=== PATIENT | female | born 1955 | race Caucasian/White ===

== ENCOUNTER 2021-02-16 12:31 | Outpatient (REF) | payer MEDICARE, MEDICAID, SELFPAY ==
--- NOTE | 2021-02-16 12:54 | EEG_ITS ---
The waking background activity consists of a moderate voltage 8 to 9 hertz posterior alpha frequency that is seen symmetrically and attenuates well with eye opening while low-voltage fast frequencies predominant anteriorly. Drowsiness is characterized by diffuse theta slowing and attenuation of the posterior alpha. During sleep, symmetrical frontal central sleep spindles and vertex sharp transients developed over both hemispheres. Stages 3 and 4 of sleep are noted with bifrontal delta. Arousals are multiple and without abnormalities. The patient remains asymptomatic. No focal, lateralizing, or paroxysmal discharges seen. IMPRESSION: This 24-hour ambulatory EEG is within normal limits. MD SHAMEKA Bowers/FADY / [id number]
== END 2021-02-16 12:32 | disposition home or self-care (01) ==
LOC: HO.NEURO 12:31
PROVIDERS: PCP Internal Medicine; Visit Provider Psychiatry & Neurology Neurology
DX: F44.5 Conversion disorder with seizures or convulsions (principal)
CPT/HCPCS: 95708

== ENCOUNTER 2021-09-28 10:18 | Outpatient (REF) | payer MEDICARE, MEDICAID, SELFPAY ==
--- NOTE | 2021-09-28 10:22 | EEG_ITS ---
The waking background activity consists of a diffuse 7 to 7.5 hertz, moderate to high voltage theta intermixed with low voltage fast frequencies anteriorly. Drowsiness is characterized with diffuse theta slowing at slower frequency and during sleep symmetrical frontal central sleep spindles develop over both hemispheres. The patient is frequently drowsy and asleep. Towards the 2nd half of their tracing, 3 leads have come off, which limits interpretation. IMPRESSION: This is an abnormal 24-hour ambulatory EEG due to diffuse theta slowing in the 7 to 7.5 hertz range consistent with diffuse encephalopathic process. No clearly epileptiform discharges are seen. MD SHAMEKA Bowers/FADY / [id number]
== END 2021-09-28 10:19 | disposition home or self-care (01) ==
LOC: HO.NEURO 10:18
PROVIDERS: Visit Provider Psychiatry & Neurology Neurology
DX: G47.419 Narcolepsy without cataplexy (principal)
CPT/HCPCS: 95708; 95957

== ENCOUNTER 2022-10-25 12:39 | Emergency (ER) | payer MEDICARE, MEDICAID, SELFPAY ==
--- NOTE | ~2022-10-25 | CT_ITS ---
EXAMINATION: CT HEAD WITHOUT CONTRAST CLINICAL INFORMATION: Left arm and bilateral leg weakness. COMPARISON: None available. TECHNIQUE: Contiguous axial imaging was performed from the skull base to vertex without intravenous administration of contrast. Coronal and sagittal reformatted images were obtained. This CT examination was performed using dose optimization techniques as appropriate, variously including the following: *Automated exposure control *Adjustment of mA and/or kV according to patient size (this includes techniques or standardized protocols for targeted exams where dose is matched to indication/reason for exam; i.e. extremities or head) *Use of iterative reconstruction technique DLP: 818 mGy-cm FINDINGS: There is mild widening of the cortical sulci with frontal lobe predominance. The lateral ventricles are symmetrical. The third and fourth ventricles are in their normal midline position. The basilar and prepontine cisterns are unremarkable. There is no acute intra or extracerebral abnormality. There is no mass effect or midline shift. Sections through the bony calvarium are unremarkable. The orbits are intact. The paranasal sinuses are clear. The mastoid air cells are clear. CT/CT head/brain wo IV con IMPRESSION: No acute intracranial pathology.
--- NOTE | ~2022-10-25 | CT_ITS ---
EXAMINATION: CT LUMBAR SPINE WITHOUT CONTRAST CLINICAL INFORMATION: Bilateral leg weakness, low back pain. COMPARISON: None available. TECHNIQUE: Multiple axial images of the lumbar spine were obtained without the administration of intravenous contrast. Coronal and sagittal reformatted images were obtained. This CT examination was performed using dose optimization techniques as appropriate, variously including the following: *Automated exposure control *Adjustment of mA and/or kV according to patient size (this includes techniques or standardized protocols for targeted exams where dose is matched to indication/reason for exam; i.e. extremities or head) *Use of iterative reconstruction technique DLP; 224.16 mGy-cm FINDINGS: There is normal lumbar lordosis and spinal alignment. Mild lumbar dextroscoliosis is seen. There is generalized osteopenia. Rudimentary ribs are seen at T12. Moderate to severe multilevel degenerative disc disease is seen from L2-3 and L5-S1. There is no acute fracture. Mild to moderate bilateral neural foraminal narrowing is seen at L4-5 and L5-S1. Mild to moderate multilevel bilateral facet arthropathy is seen most pronounced at L4-5 and L5-S1 as well. The spinous processes are intact with mild to moderate multilevel articulating degenerative changes. Mild bilateral sacroiliac degenerative joint changes are seen. A nonobstructing right intrarenal calculus measuring 0.4 cm is seen (image 20, series 17). No hydroureteronephrosis. The paravertebral soft tissues are unremarkable. CT/CT lumbar spine wo IV con IMPRESSION: 1. Multilevel degenerative changes without acute abnormality. 2. Nonobstructing right intrarenal calculus.
--- NOTE | 2022-10-25 12:59 | ED_ITS ---
HPI - General Adult General Chief complaint: General Medical <NOÉ Carl - Last Filed: 10/25/22 13:07> Stated complaint: Weakness Body Pain <NOÉ Carl - Last Filed: 10/25/22 13:07> Time Seen by Provider: 10/25/22 13:15 <NOÉ Carl - Last Filed: 10/25/22 13:07> Source: patient <Harvey Burt MD - Last Filed: 10/25/22 17:11> Mode of arrival: ambulatory <Harvey Burt MD - Last Filed: 10/25/22 17:11> Limitations: no limitations <Harvey Burt MD - Last Filed: 10/25/22 17:11> History of Present Illness HPI narrative: 67-year-old female who presents emergency department for evaluation bilateral lower leg weakness, lower back pain, and left upper extremity weakness. The patient states she has spinal stenosis is being managed by [facility]. She states that she gets steroid injections in her last injection was true to 3 months ago. She states that she has been having pain in her lower back for approximately 3-4 days. She describes the pain is a constant, sharp pain which is 8/10 at its worst. She states that she is also experiencing weakness in her lower extremities and she feels like her legs are giving out on her. She states she has had these similar pains and weakness in the past secondary to her spinal stenosis. She states that in the past she has been treated with morphine and with steroids. She states she is also having weakness in her left upper extremity which she states has been there for 3 or 4 days as well. She believes that this is secondary to her spinal stenosis. The patient does have dysarthric speech but it is comprehensible. She states that this is secondary to multiple strokes. She denied headache, numbness, loss of bowel or bladder control, fever, chills. She has had rhinorrhea over the past several days. She denies sore throat. She has had an occasional cough. She denied chest pain, shortness of breath or dyspnea on exertion. She states that she has nausea associated with the pain. She denied vomiting or diarrhea. She denied frequency, urgency or dysuria. She states that 2 months prior she was admitted to [facility] for a bowel obstruction which did not require surgery. She states she has had no difficulty moving her bowels. <Harvey Burt MD - Last Filed: 10/25/22 17:11> Related Data Home medications: Previous Rx's Medication Instructions Recorded methylphenidate HCl 20 mg tablet 20 mg PO TID 30 days #90 tabs 10/25/22 (Ritalin) morphine 15 mg immediate release 15 mg PO Q6H PRN pain #10 tabs 10/25/22 tablet prednisone 20 mg tablet 20 mg PO DAILY 5 days #5 tabs 10/25/22 <NOÉ Carl - Last Filed: 10/25/22 13:07> Allergies/adverse reactions: Allergies Allergy/AdvReac Type Severity Reaction Status Date / Time latex [Latex] Allergy Intermediate SWELLING Verified 10/25/22 13:00 ampicillin [Ampicillin] Allergy Mild ITCHING Verified 10/25/22 13:00 potassium chloride Allergy Mild ITCHING Verified 10/25/22 13:00 [Potassium Chloride] <NOÉ Carl - Last Filed: 10/25/22 13:07> Review of Systems Review of Systems: Yes all other systems are reviewed and are negative <Harvey Burt MD - Last Filed: 10/25/22 17:11> [facility] Past Medical History [facility] Narrative: Past medical history: Diabetes mellitus, narcolepsy, epilepsy, multiple strokes, small-bowel obstruction. Past surgical history: None social history: She denies tobacco, alcohol and drug use. <Harvey Burt MD - Last Filed: 10/25/22 17:11> Social History Social History: Social History Alcohol intake: never Smoked in Last 30 Days: No Use of substances other than those prescribed or required for medical reasons: No Advance Directives: No Advance Directives Information Provided: Yes <NOÉ Carl - Last Filed: 10/25/22 13:07> Physical Exam ED Vital Signs: Vital Signs - 24 hr 10/25/22 13:01 10/25/22 15:08 Temperature 98.5 F Pulse Rate 66 60 Respiratory Rate 18 14 Blood Pressure 88/53 L 101/58 L Pulse Oximetry 100 98 Oxygen Delivery Method Room Air Room Air BMI result Body Mass Index 20.1 <NOÉ Carl - Last Filed: 10/25/22 13:07> Vital Signs - 24 hr 10/25/22 13:01 10/25/22 15:08 Temperature 98.5 F Pulse Rate 66 60 Respiratory Rate 18 14 Blood Pressure 88/53 L 101/58 L Pulse Oximetry 100 98 Oxygen Delivery Method Room Air Room Air BMI result Body Mass Index 20.1 Low blood pressure 88/53-the patient states that this is her baseline blood pre ssure <Harevy Burt MD - Last Filed: 10/25/22 17:11> Const Other: Awake, alert, female patient, she has dysarthric speech which is comprehensible, she answers all questions appropriately, she is oriented to person place, she does not appear to be in distress <Harvey Burt MD - Last Filed: 10/25/22 17:11> HENMT Head: Yes normal to inspection, Yes normocephalic and Yes atraumatic <Harvey Burt MD - Last Filed: 10/25/22 17:11> Ears: external ears normal <Harvey Burt MD - Last Filed: 10/25/22 17:11> General nose exam: Normal external nose present <Harvey Burt MD - Last Filed: 10/25/22 17:11> Face and sinus: Yes normal facial exam <Harvey Burt MD - Last Filed: 10/25/22 17:11> Mouth: Normal oral and palatal mucosa present <Harvey Burt MD - Last Filed: 10/25/22 17:11> Throat: Yes posterior oropharynx normal <Harvey Burt MD - Last Filed: 10/25/22 17:11> Eyes General: appearance normal, both eyes and all related structures <Harvey Burt MD - Last Filed: 10/25/22 17:11> Neck Neck: Yes normal visual inspection, Yes no lymphadenopathy, Yes trachea midline and Yes supple <Harvey Burt MD - Last Filed: 10/25/22 17:11> Chest Chest palpation & inspection: normal inspection of the chest and normal palpation of entire chest wall <Harvey Burt MD - Last Filed: 10/25/22 17:11> Resp Effort & Inspection: normal respiratory effort and able to speak in complete sentences <Harvey Burt MD - Last Filed: 10/25/22 17:11> Auscultation: clear to auscultation bilaterally <Harvey Burt MD - Last Filed: 10/25/22 17:11> Cardio Rate: regular rate <Harvey Burt MD - Last Filed: 10/25/22 17:11> Rhythm: regular rhythm <Harvey Burt MD - Last Filed: 10/25/22 17:11> Heart sounds: S1 normal heart sound present, S2 normal heart sound present and no murmurs <Harvey Burt MD - Last Filed: 10/25/22 17:11> GI Inspection: Yes normal to inspection <Harvey Burt MD - Last Filed: 10/25/22 17:11> Palpation (GI): Soft to palpation, nontender and no guarding <Harvey Burt MD - Last Filed: 10/25/22 17:11> Auscultation: normal bowel sounds <MD Jarocho Chawla Last Filed: 10/25/22 17:11> Back/Spine/Pelvis Other: Patient has no tenderness palpation over her cervical, thoracic, lumbar sacral spine. She has no paraspinal muscle tenderness. She has negative straight leg raises bilaterally. <Harvey Burt MD - Last Filed: 10/25/22 17:11> Skin General skin exam: no rashes or lesions noted <Harvey Burt MD - Last Filed: 10/25/22 17:11> Neuro Other: Awake, alert, oriented to person place. Cranial nerves 2-12 are intact except for dysarthric speech which is comprehensible. Strength in her upper and lower extremities are good and symmetric. <Harvey Burt MD - Last Filed: 10/25/22 17:11> Extrem General: Yes normal to inspection <Harvey Burt MD - Last Filed: 10/25/22 17:11> Psych Appearance: grossly normal <Harvey Burt MD - Last Filed: 10/25/22 17:11> Speech and movement: Normal speech and movement present <Harvey Burt MD - Last Filed: 10/25/22 17:11> Affect: normal affect <Harvey Burt MD - Last Filed: 10/25/22 17:11> Attitude: cooperative <Harvey Burt MD - Last Filed: 10/25/22 17:11> Course Course Course Narrative: RME - 67 y/o female with history of CVA, narcolepsy, seizures, spinal stenosis who presents to the ER for evaluation of bilateral lower leg weakness that just started today. She report a hard time walking today. She would like cortisone injections in her spine. She thinks she is supposed to have surgery. In triage she has slurred speech and reports it is her baseline, she has had several strokes. Toward the end of triage she also reports new left arm weakness which has been present for the last 3-4 days. BP is 88/53 and she reports she has baseline low BP. She has an unsteady gait. Plan: CT head and lumbar spine, labs, EKG. to go back to treatment room [facility] <NOÉ Carl - Last Filed: 10/25/22 13:07> RME - 67 y/o female with history of CVA, narcolepsy, seizures, spinal stenosis who presents to the ER for evaluation of bilateral lower leg weakness that just started today. She report a hard time walking today. She would like cortisone injections in her spine. She thinks she is supposed to have surgery. In triage she has slurred speech and reports it is her baseline, she has had several strokes. Toward the end of triage she also reports new left arm weakness which has been present for the last 3-4 days. BP is 88/53 and she reports she has baseline low BP. She has an unsteady gait. Plan: CT head and lumbar spine, labs, EKG. to go back to treatment room [facility] 1344: RME review by me. <Harvey Burt MD - Last Filed: 10/25/22 17:11> Medications Administered Discontinued Medications Generic Name Dose Route Start Last Admin Trade Name Freq PRN Reason Stop Dose Admin Methylphenidate HCl 20 mg 10/25/22 13:32 10/25/22 14:19 Methylphenidate Hcl 10 Mg Tablet PO 10/25/22 13:33 20 mg ONCE ONE Administration Methylprednisolone Sodium Succinate 60 mg 10/25/22 13:32 10/25/22 14:19 Methylprednisolone Sod Succ 125 Mg/2 Ml Vial IVPUSH 10/25/22 13:33 60 mg ONCE ONE Administration Morphine Sulfate 2 mg 10/25/22 13:32 10/25/22 14:19 Morphine Sulfate 4 Mg/Ml Cartridge IVPUSH 10/25/22 13:33 2 mg ONCE STA Administration Protocol Morphine Sulfate 4 mg 10/25/22 15:49 10/25/22 16:01 Morphine Sulfate 4 Mg/Ml Cartridge IVPUSH 10/25/22 15:50 4 mg ONCE STA Administration Protocol <NOÉ Carl - Last Filed: 10/25/22 13:07> Medications Administered Discontinued Medications Generic Name Dose Route Start Last Admin Trade Name Nicole PRN Reason Stop Dose Admin Methylphenidate HCl 20 mg 10/25/22 13:32 10/25/22 14:19 Methylphenidate Hcl 10 Mg Tablet PO 10/25/22 13:33 20 mg ONCE ONE Administration Methylprednisolone Sodium Succinate 60 mg 10/25/22 13:32 10/25/22 14:19 Methylprednisolone Sod Succ 125 Mg/2 Ml Vial IVPUSH 10/25/22 13:33 60 mg ONCE ONE Administration Morphine Sulfate 2 mg 10/25/22 13:32 10/25/22 14:19 Morphine Sulfate 4 Mg/Ml Cartridge IVPUSH 10/25/22 13:33 2 mg ONCE STA Administration Protocol Morphine Sulfate 4 mg 10/25/22 15:49 10/25/22 16:01 Morphine Sulfate 4 Mg/Ml Cartridge IVPUSH 10/25/22 15:50 4 mg ONCE STA Administration Protocol <Harvey Burt MD - Last Filed: 10/25/22 17:11> Medical Decision Making Medical Decision Making MDM Narrative: 67 y/o female with history of CVA, narcolepsy, seizures, spinal stenosis who presents to the ER for evaluation of bilateral lower leg weakness, back pain and left upper extremity weakness times 3-4 days. Patient has had similar pr esentations in the past secondary to spinal stenosis. She has had multiple strokes in the past and has dysarthric speech. Physical examination revealed symmetric upper and lower extremity strength with normal reflexes. Provider triage ordered a CBC, BMP, liver panel, magnesium, ethanol level, urine tox screen. CT scan of the brain and lumbar spine was also ordered at triage. 1346: Impression is that the patient's symptoms are consistent with her spinal stenosis. Her pain was treated with morphine 2 mg IV and she was also given Solu-Medrol 60 mg IV for possible inflammation secondary to her spinal stenosis. Patient requested her Ritalin 20 mg orally for her narcolepsy and this was ord ered by me. 1658: CT scan of the patient's head revealed no acute findings to explain her weakness. CT scan of the lumbar sacral spine revealed multilevel degenerative changes but no acute finding. Patient did require a 2nd dose of morphine 4 mg IV and states that she needed 2nd dose of Ritalin for her narcolepsy therefore I ordered Ritalin 20 mg orally. The patient is feeling better. The patient will be discharged home I did prescribe prednisone 20 mg daily for 5 days to treat her for inflammation causing her symptoms. Patient was also prescribed morphine 15 mg every 6 hours as needed for pain. She requested that I refill her renal and 20 mg 3 times a day for her narcolepsy which she states she is on these medications and needs emergently and her doctor is not available. Therefore I did refill this medication for her pain <Harvey Burt MD - Last Filed: 10/25/22 17:11> Differential Diagnosis Differential diagnosis includes was not limited to spinal stenosis, degenerative joint disease, stroke, anemia electrolyte abnormality, <Harvey Burt MD - Last Filed: 10/25/22 17:11> Admission/Observation Consideration of admission/observation: Escalation of care including admission/observation considered <Harvey Burt MD - Last Filed: 10/25/22 17:11> Lab Data [facility] Lab Attestation statement: I reviewed the patient's lab results. <Harvey Burt MD - Last Filed: 10/25/22 17:11> Please see [facility] <Harvey Burt MD - Last Filed: 10/25/22 17:11> Result Diagrams: 10/25/22 14:53 10/25/22 14:53 <NOÉ Carl - Last Filed: 10/25/22 13:07> Labs: Lab Results 10/25/22 10/25/22 10/25/22 Range/Units 14:53 14:53 14:53 WBC 5.8 (4.8-10.8) X10*3/uL RBC 4.23 (4.20-5.50) X10*6/uL Hgb 14.1 (12.0-16.0) g/dl Hct 41.7 (37.0-47.0) % MCV 98.6 H (80.0-98.0) fL MCH 33.3 H (27.0-33.0) pg MCHC 33.8 (31.0-35.0) g/dl RDW 11.8 (11.0-16.0) % Plt Count 245 (160-400) X10*3/uL MPV 8.7 L (9.4-12.3) fL Immature Gran % (Auto) 0.3 (0.0-0.4) % Neut % (Auto) 76.1 H (45-73) % Lymph % (Auto) 19.8 L (20-40) % Maury % (Auto) 3.3 (2-11) % Eos % (Auto) 0.2 (0-4) % Baso % (Auto) 0.3 (0-2) % Lymph # (Auto) 1.1 L (1.2-4.9) X10*3/uL Maury # (Auto) 0.2 (0.1-1.2) X10*3/uL Eos # (Auto) 0.0 (0.0-0.4) X10*3/uL Baso # (Auto) 0.0 (0.0-0.2) X10*3/uL Abs Immat Gran (auto) 0.02 (0.00-0.03) X10*3/uL Absolute Neuts (auto) 4.4 (2.0-8.3) x10*3/uL Absolute Nucleated RBC 0.000 (0.0-0.012) X10*3/uL Nucleated RBC % (auto) 0.0 (0.0-0.2) /100WBC PT 10.5 (10.0-13.1) SEC INR 0.9 (0.9-1.1) APTT 39.7 H (26.0-36.4) SEC Sodium 141 (135-145) mmol/L Potassium 3.5 (3.3-5.1) mmol/L Chloride 107 (96-108) mmol/L Carbon Dioxide 28 (22-29) mmol/L Anion Gap 10 L (12-20) BUN 14 (9-16) mg/dL Creatinine 0.93 (0.5-1.4) mg/dL Estim Creat Clear Calc 47.4 Estimated GFR > 60 Random Glucose 78 (60-115) mg/dL Calcium 8.8 (8.4-10.2) mg/dL Magnesium 2.4 (1.6-2.6) mg/dL Total Bilirubin 0.3 (0.0-1.0) mg/dL Direct Bilirubin 0.1 (0.0-0.5) mg/dL AST 18 (5-31) U/L ALT 18 (0-31) U/L Alkaline Phosphatase 171 H (39-117) U/L Total Protein 6.8 (6.5-8.0) g/dL Albumin 4.4 (3.5-5.0) g/dL Ethyl Alcohol < 10 mg/dL <NOÉ Carl - Last Filed: 10/25/22 13:07> Lab Results 10/25/22 10/25/22 10/25/22 Range/Units 14:53 14:53 14:53 WBC 5.8 (4.8-10.8) X10*3/uL RBC 4.23 (4.20-5.50) X10*6/uL Hgb 14.1 (12.0-16.0) g/dl Hct 41.7 (37.0-47.0) % MCV 98.6 H (80.0-98.0) fL MCH 33.3 H (27.0-33.0) pg MCHC 33.8 (31.0-35.0) g/dl RDW 11.8 (11.0-16.0) % Plt Count 245 (160-400) X10*3/uL MPV 8.7 L (9.4-12.3) fL Immature Gran % (Auto) 0.3 (0.0-0.4) % Neut % (Auto) 76.1 H (45-73) % Lymph % (Auto) 19.8 L (20-40) % Maury % (Auto) 3.3 (2-11) % Eos % (Auto) 0.2 (0-4) % Baso % (Auto) 0.3 (0-2) % Lymph # (Auto) 1.1 L (1.2-4.9) X10*3/uL Maury # (Auto) 0.2 (0.1-1.2) X10*3/uL Eos # (Auto) 0.0 (0.0-0.4) X10*3/uL Baso # (Auto) 0.0 (0.0-0.2) X10*3/uL Abs Immat Gran (auto) 0.02 (0.00-0.03) X10*3/uL Absolute Neuts (auto) 4.4 (2.0-8.3) x10*3/uL Absolute Nucleated RBC 0.000 (0.0-0.012) X10*3/uL Nucleated RBC % (auto) 0.0 (0.0-0.2) /100WBC PT 10.5 (10.0-13.1) SEC INR 0.9 (0.9-1.1) APTT 39.7 H (26.0-36.4) SEC Sodium 141 (135-145) mmol/L Potassium 3.5 (3.3-5.1) mmol/L Chloride 107 (96-108) mmol/L Carbon Dioxide 28 (22-29) mmol/L Anion Gap 10 L (12-20) BUN 14 (9-16) mg/dL Creatinine 0.93 (0.5-1.4) mg/dL Estim Creat Clear Calc 47.4 Estimated GFR > 60 Random Glucose 78 (60-115) mg/dL Calcium 8.8 (8.4-10.2) mg/dL Magnesium 2.4 (1.6-2.6) mg/dL Total Bilirubin 0.3 (0.0-1.0) mg/dL Direct Bilirubin 0.1 (0.0-0.5) mg/dL AST 18 (5-31) U/L ALT 18 (0-31) U/L Alkaline Phosphatase 171 H (39-117) U/L Total Protein 6.8 (6.5-8.0) g/dL Albumin 4.4 (3.5-5.0) g/dL Ethyl Alcohol < 10 mg/dL <Harvey Burt MD - Last Filed: 10/25/22 17:11> Radiology Impression Discussion of test interpretation with radiology: I have reviewed the radiologist's reading. <Harvey Burt MD - Last Filed: 10/25/22 17:11> Radiologist Impression: CT head/brain wo IV con IMPRESSION: No acute intracranial pathology. Dictated By:Damian Langley MDSigned By:<Electronically signed by Damian Langley MD CT lumbar spine wo IV con IMPRESSION: 1. Multilevel degenerative changes without acute abnormality. 2. Nonobstructing right intrarenal calculus. Dictated By:Damian Langley MD <Harvey Burt MD - Last Filed: 10/25/22 17:11> Discharge Plan Discharge Clinical Impression: Degenerative disc disease, lumbar, Degenerative arthritis of lumbar spine, Weakness <NOÉ Carl - Last Filed: 10/25/22 13:07> Patient Disposition: Home, Self-Care <NOÉ Carl - Last Filed: 10/25/22 13:07> Instructions: Acute Low Back Pain (ED), Degenerative Disc Disease (ED) <NOÉ Carl - Last Filed: 10/25/22 13:07> Additional Instructions: Your blood work was unremarkable. The CT scan of your brain revealed no acute findings to explain your weakness. The CT scan of your lumbar sacral spine revealed degenerative disc disease and degenerative joint disease which is consistent with arthritis secondary to getting older. Take prednisone 20 mg pills, 3 pills once a day for 5 days. While you are taking prednisone, do not take any NSAIDs (Motrin, Advil, ibuprofen, Aleve, naproxen). Take Tylenol (acetaminophen) 2 pills every 4-6 hours as needed for pain. For pain not relieved by prednisone or Tylenol take morphine 15 mg pills, 1 pill every 6 hours as needed for pain. This medication will make you sleepy, do not drive or work while taking this medication. Morphine is a narcotic medication and can be addicting. If you are concerned about addiction you can ask the pharmacist for less pills or do not get this prescription filled. Follow-up with your provider at [facility] for re-evaluation within 1 week. Please return to the emergency department if your symptoms get worse or if you develop any symptoms that are concerning to you. I am refilling your Ritalin prescription, will not be able to refill this prescription again in the emergency department you will need to see your PCP for refills. <NOÉ Carl - Last Filed: 10/25/22 13:07> Prescriptions: New prednisone 20 mg tablet 20 mg PO DAILY 5 Days Qty: 5 0RF morphine 15 mg tablet 15 mg PO Q6H PRN (Reason: pain) Qty: 10 0RF Rx Instructions: The patient may ask for partial fill; Partial Fill upon patient request. methylphenidate HCl [Ritalin] 20 mg tablet 20 mg PO TID 30 Days Qty: 90 0RF Rx Instructions: Partial Fill upon patient request. <NOÉ Carl - Last Filed: 10/25/22 13:07>
[2022-10-25 13:01] VITALS: BP 88/53; PULSE 66; RESP 18; TEMP 36.9; O2SAT 100; BMI 20.1
--- NOTE | 2022-10-25 13:06 | ECG_ITS ---
Test Reason : weakness Blood Pressure : / mmHG Vent. Rate : 056 BPM Atrial Rate : 056 BPM P-R Int : 150 ms QRS Dur : 110 ms QT Int : 474 ms P-R-T Axes : 033 056 060 degrees QTc Int : 457 ms Sinus bradycardia Minimal voltage criteria for LVH, may be normal variant ( Jun product ) Nonspecific T wave abnormality Abnormal ECG When compared with ECG of 28-NOV-2008 11:27, No significant change was found Referred By: Marli Serrano Electronically Signed By:JOEL APODACA MD
--- OUTSIDE RECORDS SUMMARY | 2022-10-25 14:04 | XMS_ITS | Continuity of Care Document ---
Author Name Unknown Organization [facility] Address [address] [place] [address] [address], [address] [place] [address]- Care Team Providers Care Operations/Dispatch Name Role Phone Diandra BULLOCK, Clari Feng Primary Care Physician Encounter [facility] [place](s): 07/25/22 - 08/24/22 [facility] [address] [place] [address] Drive, [address] [place], [place] [address] Attending Physician: Admwild, Jayro Admitting Physician: Admtr, [id number] Referring Physician: Admtr, [id number] Allergies, Adverse Reactions, Alerts Substance Reaction Severity Status ampicillin hives Active penicillin hives Active Latex hives Active Immunizations Given and Recorded Vaccine Date Status Refusal Reason influenza virus vaccine, inactivated 02/15/17 [place] rded influenza virus vaccine, inactivated 03/13/14 [place] rded influenza virus vaccine, inactivated 04/30/10 [place] rded pneumococcal 23-valent vaccine 08/30/14 Given Medications Adderall XR 30 mg oral capsule, extended release 1 capsule = 30 mg, By Mouth, Daily, # 30 capsule, 0 Refills, Maintenance, 10/05/20 16:44:00 EDT, CRCapsule, [facility]/pharmacy #[id number], FILL 07/07/20, 1 capsule By Mouth Daily,x30 days, 165, cm, 10/05/2113:20:00 EDT, Height, 80.3, kg, 04/23/20 20:50:00 E... Start Date: 10/05/20 Stop Date: 11/04/20 Status: Ordered Aimovig SureClick Autoinjector-aooe 140 mg/mL subcutaneous solution = 140 mg, Subcutaneous Infusion, Every 28 days, # 1 each, 3 Refills, Maintenance, 10/05/20 16:44:00EDT, [facility]/pharmacy #1234, Partial fill upon patient request if the prescription is for a schedule IIopioid drug., 165, cm, 10/05/20 14:20:00 EDT, Heigh... Start Date: 10/05/20 Status: Ordered celecoxib 200 mg oral capsule TAKE 1 CAPSULE TWICE A DAY WITH MEALS Start Date: 04/23/20 Status: Ordered furosemide 40 mg oral tablet TAKE 1 TABLET BY MOUTH TWICE A DAY Start Date: 04/23/20 Status: Ordered gabapentin 400 mg oral capsule 400 mg, 1, capsule, By Mouth, 3 times a day, # 90 capsule, Refills 0, Tot. Refills 0, Maintenance, 11/02/21 8:05:00 EDT, Route to Pharmacy Electronically, [facility]/pharmacy #[id number], Partial fill upon patient request if the prescription is for a schedule II o... Start Date: 11/02/21 Status: Ordered imipramine 25 mg oral tablet 1 tablet = 25 mg, By Mouth, 4 times a day, # 270 tablet, 0 Refills, Maintenance, 06/03/22 15:58:00 EST, Tablet, Partial fill upon patient request if the prescription is for a schedule II opioid drug. Start Date: 06/03/22 Status: Ordered Keppra 500 mg oral tablet 3 tab, By Mouth, 3 times a day, # 120 tablet, 0 Refills, Maintenance, 11/26/20 22:32:00 EDT, Tablet, Partial fill upon patient request if the prescription is for a schedule II opioid drug. Start Date: 11/26/20 Status: Ordered methylphenidate 20 mg oral tablet 1 tablet = 20 mg, By Mouth, 3 times a day, # 90 tablet, 0 Refills, Maintenance, 03/13/22 17:45:00 EDT, Tablet, [facility]/pharmacy #1234, Partial fill upon patient request if the prescription is for a schedule II opioid drug., 160, cm, 03/13/22 17:03:00 EDT,... Start Date: 03/13/22 Status: Ordered OXcarbazepine 600 mg oral tablet TAKE 1 TABLET BY MOUTH TWICE A DAY Start Date: 04/23/20 Status: Ordered Potassium Chloride (Eqv-K-Tab) 20 mEq oral tablet, extended release 1 tablet = 20 mEq, By Mouth, Daily, # 7 tablet, 0 Refills, Maintenance, 06/04/22 12:14:00 EST, [facility]/pharmacy #1234, Partial fill upon patient request if the prescription is for a schedule II opioid drug., 160, cm, 06/04/22 12:01:00 EST, Height, 65, kg,... Start Date: 06/04/22 Stop Date: 06/11/22 Status: Ordered predniSONE 5 mg oral tablet 1 tablet = 5 mg, By Mouth, Daily, 0 Refills, Maintenance, 12/03/21 14:29:00 EDT, Partial fill upon patient request if the prescription is for a schedule II opioid drug. Start Date: 12/03/21 Status: Ordered ProAir HFA 90 mcg/inh inhalation aerosol with adapter See Instructions, NEEDED, Refills 0, Maintenance, 03/21/19 10:17:01 EDT, Instructions Replace Required Details Start Date: 03/21/19 Status: Ordered PROzac 40 mg oral capsule 1 capsule = 40 mg, By Mouth, Daily in AM, 0 Refills, Maintenance, 03/21/19 10:15:40 EDT Start Date: 03/21/19 Status: Ordered Ritalin 20 mg oral tablet 1 tablet = 20 mg, By Mouth, 2 times a day, 0 Refills, Maintenance, 06/22/22 10:59:00 EST, Partial fill upon patient request if the prescription is for a schedule II opioid drug. Start Date: 06/22/22 Status: Ordered traMADol 50 mg oral tablet 1 tablet = 50 mg, By Mouth, Every 6 hours, PRN Pain , Severe, 0 Refills, Maintenance, 11/27/21 21:31:00 EDT, Partial fill upon patient request if the prescription is for a schedule II opioid drug. Start Date: 11/27/21 Status: Ordered Problem List Condition Confirmation Course Effective Dates Status H ealth Status Informant Bipolar Confirmed Active Diabetes mellitus type II Confirmed Active Epilepsy, Unspecified Confirmed Active History of CHF (congestive heart failure) Confirmed Active Hx-TIA (transient ischemic attack) Confirmed Active Hypokalemia Confirmed Active Narcolepsy Confirmed Active Postmenopausal Bleeding Confirmed 04/19/11 Active Rheumatoid arthritis Confirmed Active Schizoaffective disorder Confirmed Active Social History Social History Type Response Smoking Status Former smoker, quit more than 30 days ago entered on: 11/27/21 Sex Patient Care team information Care Team Personnel Name: Diandra BULLOCK, Clari Feng Position: [facility] Physician (General Medicine) Member Role: PCP Address: Address: [address] [place] [address]- Name: Lorin Barnhart RN Position: S RN Member Role: Primary Care Nurse Name: Sunni Bernal RN Position: [facility] RN Member Role: Primary Care Nurse Care Team Related Persons Name: DARRIN HARDY Address: [address] [address] Name: DARRIN SCOTT Address: [address] [address] Name: MARIBEL CALLES Address: home [address] [place] [address]
--- OUTSIDE RECORDS SUMMARY | 2022-10-25 14:04 | XMS_ITS | Continuity of Care Document ---
Author Name Unknown Organization [facility] Address [address] [place] [address] [address], [address] [place] [address]- Care Team Providers Care Police Patrol Lieutenant Name Role Phone Diandra BULLOCK, Clari Feng Primary Care Physician Encounter [facility] Date(s): 05/27/22 - 06/26/22 [facility] [address] [place] [address] Drive, [address] [place] [address]- Allergies, Adverse Reactions, Alerts Substance Reaction Severity [...] 0 Refills, Maintenance, 10/05/20 16:44:00 EDT, CRCapsule, [facility]/pharmacy #[id number], FILL 07/07/20, 1 capsule By Mouth Daily,x30 days, 165, cm, 10/05/2113:20:00 EDT, Height, 80.3, kg, 04/23/20 20:50:00 E... Start Date: 10/05/20 Stop Date: 11/04/20 Status: Ordered Aimovig SureClick Autoinjector-aooe 140 mg/mL subcutaneous solution = 140 mg, Subcutaneous Infusion, Every 28 days, # 1 each, 3 Refills, Maintenance, 10/05/20 16:44:00EDT, [facility]/pharmacy #[facility], Partial fill upon patient request if [...] 11/02/21 8:05:00 EDT, Route to Pharmacy Electronically, [facility]/pharmacy #1234, Partial fill upon [...] 0 Refills, Maintenance, 03/13/22 17:45:00 EDT, Tablet, [facility]/pharmacy #1234, Partial fill upon [...] tablet, 0 Refills, Maintenance, 06/04/22 12:14:00 EST, [facility]/pharmacy #1234, Partial fill upon [...] Care team information Care Team Personnel Name: Clari Jim MD Position: [facility] Physician (General Medicine) Member Role: PCP Address: Address: [address] [place] [address] 1 [facility] [place] [address]- Name: Lorin Barnhart RN Position: S RN Member Role: Primary Care Nurse Name: Sunni Bernal RN Position: S RN Member Role: Primary Care Nurse Name: Robbie Mondragon RN Position: S RN Supv Member Role: Primary Care Nurse Care Team Related Persons Name: DARRIN HARDY Address: [address] [address] Name: DARRIN SCOTT Address: [address] [address] Name: MARIBEL CALLES Address: home [address] [place] [address]
--- OUTSIDE RECORDS SUMMARY | 2022-10-25 14:04 | XMS_ITS | Continuity of Care Document ---
Author Name Unknown Organization [facility] Address [address] [place] [address] [address], [address] [place] [address]- Care Team Providers Care Weaver Tire Cord Name Role Phone Diandra BULLOCK, Clari Feng Primary Care Physician Encounter [facility] Date(s): 06/17/22 - 07/17/22 [facility] [address] [place] [address] Drive, [address] [place] [address]- Allergies, Adverse Reactions, Alerts Substance Reaction Severity [...] 0 Refills, Maintenance, 10/05/20 16:44:00 EDT, CRCapsule, [facility]/pharmacy #1234, FILL 07/07/20, 1 capsule By Mouth [...] 11/02/21 8:05:00 EDT, Route to Pharmacy Electronically, [facility]/pharmacy #1234, Partial fill upon patient request if [...] 0 Refills, Maintenance, 03/13/22 17:45:00 EDT, Tablet, [facility]/pharmacy #1234, Partial fill upon patient request if [...] tablet, 0 Refills, Maintenance, 06/04/22 12:14:00 EST, [facility]/pharmacy #1234, Partial fill upon patient request if [...] Team Personnel Name: Clari Jim MD Position: [facility] Physician (General Medicine) Member Role: PCP Address: Address: [address] [place] [address] 1 [facility] [place] [address]- Name: Bronwyn MON, Lorin Position: [facility] RN Member Role: Primary Care Nurse Name: Sunni Bernal RN Position: S RN Member Role: Primary Care Nurse Care Team Related Persons Name: DARRIN HARDY Address: home [address] [address] Name: DARRIN SCOTT Address: [address] [address] Name: MARIBEL CALELS Address: home [address] [place] [address]
--- OUTSIDE RECORDS SUMMARY | 2022-10-25 14:04 | XMS_ITS | Continuity of Care Document ---
Author Name Unknown Organization [facility] Address [address] [place] [address] [address], [address] [place] [address]- Care Team Providers Care Picture Copyist Name Role Phone Clari Jim MD Primary Care Physician Encounter [facility] [place] Date(s): 07/05/22 - 08/24/22 [facility] [address] [place] [address] Drive, [address] [place] [address]- Attending Physician: Abraham Resendiz MD Referring Physician: Clari Jim MD Allergies, Adverse Reactions, Alerts Substance Reaction Severity [...] 0 Refills, Maintenance, 10/05/20 16:44:00 EDT, CRCapsule, [facility]/pharmacy #1234, FILL 07/07/20, 1 capsule By Mouth Daily,x30 days, 165, cm, 10/05/2113:20:00 EDT, Height, 80.3, kg, 04/23/20 20:50:00 E... Start Date: 10/05/20 Stop Date: 11/04/20 Status: Ordered Aimovig SureClick Autoinjector-aooe 140 mg/mL subcutaneous solution = 140 mg, Subcutaneous Infusion, Every 28 days, # 1 each, 3 Refills, Maintenance, 10/05/20 16:44:00EDT, [facility]/pharmacy #1234, Partial fill upon patient request if [...] 11/02/21 8:05:00 EDT, Route to Pharmacy Electronically, [facility]/pharmacy #1234, Partial fill upon patient request if [...] 0 Refills, Maintenance, 03/13/22 17:45:00 EDT, Tablet, [facility]/pharmacy #1234, Partial fill upon patient request if [...] tablet, 0 Refills, Maintenance, 06/04/22 12:14:00 EST, [facility]/pharmacy #1234, Partial fill upon patient request if [...] Personnel Name: Diandra BULLOCK, Clari Feng Position: [facility] Physician (General Medicine) Member Role: PCP Address: Address: [address] [place] [address]- Name: Bronwyn MON, Lorin Position: S RN Member Role: Primary Care Nurse Name: Sunni Bernal RN Position: S RN Member Role: Primary Care Nurse Care Team Related Persons Name: DARRIN HARDY Address: home [address] [address] Name: DARRIN SCOTT Address: [address] [address] Name: MARIBEL CALLES Address: home [address] [place] [address]
--- OUTSIDE RECORDS SUMMARY | 2022-10-25 14:04 | XMS_ITS | Continuity of Care Document ---
Author Name Unknown Organization [facility] ter Address [address] [place] [address]- Care Team Providers Care Ticket Counter Name Role Phone Je Jim MD Primary Care Physician Encounter [facility] [id number] Date(s): 07/30/19 - 07/30/[address] [address]- [facility] Attending Physician: Je Jim MD Allergies, Adverse Reactions, Alerts Substance Reaction Severity Status ampicillin hives Active penicillin hives Active potassium chloride Active Latex hives Active Immunizations Given and Recorded Vaccine Date Status Refusal Reason pneumococcal 23-valent vaccine 08/30/14 Given Medications Adderall XR 30 mg oral capsule, extended release 1 capsule = 30 mg, By Mouth, Daily, *DO NOT FILL UNTIL 07/19/2019*, # 30 capsule, 0 Refills, Maintenance, 07/09/19 14:55:00 EST, CR Capsule, [facility], 1 capsule By Mouth Daily,x30 days,Instr:*DO NOT FILL UNTIL 07/19/2019*, 160, cm, 03/21/19... Start Date: 07/09/19 Stop Date: 08/08/19 Status: Ordered fluticasone 50 mcg/inh nasal spray Daily, 0 Refills, Maintenance, 11/14/18 7:39:17 EDT Start Date: 11/14/18 Status: Ordered haloperidol 5 mg oral tablet 5 mg, 1, tablet, By Mouth, 3 times a day, Refills 0, Maintenance, 03/21/19 7:49:18 EDT Start Date: 03/21/19 Status: Ordered Lasix 40 mg oral tablet 1 tablet = 40 mg, By Mouth, Daily, # 30 tablet, 0 Refills, Maintenance, Tablet Start Date: 07/13/13 Status: Ordered levETIRAcetam 750 mg oral tablet See Instructions, TAKE 1 TABLET BY MOUTH EVERY MORNING AND TAKE 2 TABLETS AT NIGHT, # 270 tablet, 1Refills, Soft Stop, 06/12/19 9:30:00 EST, [facility]/pharmacy #1234, 160, cm, 03/21/19 11:48:00 EDT, Height Start Date: 06/12/19 Status: Ordered meloxicam 15 mg oral tablet 1 tablet = 15 mg, By Mouth, Daily, 0 Refills, Maintenance, 11/14/18 7:39:14 EDT Start Date: 11/14/18 Status: Ordered OXcarbazepine 600 mg oral tablet 1 tablet = 600 mg, By Mouth, 2 times a day, 0 Refills, Maintenance, 03/21/19 7:49:22 EDT Start Date: 03/21/19 Status: Ordered ProAir HFA 90 mcg/inh inhalation aerosol with adapter See Instructions, NEEDED, Refills 0, Maintenance, 03/21/19 10:17:01 EDT, Instructions Replace Required Details Start Date: 03/21/19 Status: Ordered PROzac 40 mg oral capsule 1 capsule = 40 mg, By Mouth, Daily in AM, 0 Refills, Maintenance, 03/21/19 10:15:40 EDT Start Date: 03/21/19 Status: Ordered topiramate 25 mg oral tablet See Instructions, # 270 tablet, Refills 1 Tot. Refills 1, TAKE 1 TABLET IN AM AND 2 TABLETS IN PM, [facility]/pharmacy #1234 Start Date: 03/19/19 Status: Ordered trazodone 50 mg oral tablet See Instructions, 100-200 MG THS, # 30 tablet, 0 Refills, Maintenance, 07/18/13 9:35:55 EST, Tablet Start Date: 07/18/13 Status: Ordered Problem List Condition Effective Dates Status Health Status Inform ant Bipolar(Confirmed) Active Diabetes mellitus type II(Confirmed) Active Epilepsy, Unspecified(Confirmed) Active Narcolepsy(Confirmed) Active Postmenopausal Bleeding(Confirmed) 04/19/11 Active Rheumatoid arthritis(Confirmed) Active Social History Social History Type Response Smoking Status Former smoker entered on: 08/29/14 Sex
--- OUTSIDE RECORDS SUMMARY | 2022-10-25 14:04 | XMS_ITS | Continuity of Care Document ---
Author Name Unknown Organization [facility] Address [address] [facility], [address] Floor, [address] [place] [address]- Care Team Providers Care Full Stack Software Engineer Name Role Phone Diandra BULLOCK, Clari Feng Primary Care Physician ( [phone] Encounter [facility] [place] Date(s): 11/19/20 - 12/19/20 [facility] [address] [facility], [address]rd Floor, [address] [place] [id number] Allergies, Adverse Reactions, Alerts Substance Reaction Severity Status ampicillin hives Active penicillin hives Active potassium chloride Active Latex hives Active Immunizations Given and Recorded Vaccine Date Status Refusal Reason pneumococcal 23-valent vaccine 08/30/14 Given Medications Adderall XR 30 mg oral capsule, extended release 1 capsule = 30 mg, By Mouth, Daily, # 30 capsule, 0 Refills, Maintenance, 10/05/20 16:44:00 EDT, Jose, [facility]/pharmacy #1234, FILL 07/07/20, 1 capsule By Mouth [...] A DAY Start Date: 04/23/20 Status: Ordered haloperidol 5 mg oral tablet 5 mg, 1, tablet, By Mouth, 3 times a day, Refills 0, Maintenance, 03/21/19 7:49:18 EDT Start Date: 03/21/19 Status: Ordered Keppra 500 mg oral tablet 3 tab, By Mouth, 3 times a day, # 120 tablet, 0 Refills, Maintenance, 11/26/20 22:32:00 EDT, Tablet, Partial fill upon patient request if the prescription is for a schedule II opioid drug. Start Date: 11/26/20 Status: Ordered meloxicam 15 mg oral tablet TAKE 1 TABLET BY MOUTH EVERY DAY Start Date: 04/23/20 Status: Ordered OXcarbazepine 600 mg oral tablet TAKE 1 TABLET BY MOUTH TWICE A DAY Start Date: 04/23/20 Status: Ordered ProAir HFA 90 mcg/inh inhalation aerosol with adapter See Instructions, NEEDED, Refills 0, Maintenance, 03/21/19 10:17:01 EDT, Instructions Replace Required Details Start Date: 03/21/19 Status: Ordered PROzac 40 mg oral capsule 1 capsule = 40 mg, By Mouth, Daily in AM, 0 Refills, Maintenance, 03/21/19 10:15:40 EDT Start Date: 03/21/19 Status: Ordered Topamax 50 mg oral tablet 1 tablet = 50 mg, By Mouth, 2 times a day, # 180 tablet, 1 Refills, Maintenance, 08/14/20 9:35:00 EST, Tablet, [facility]/pharmacy #1234, 165, cm, 05/12/20 14:25:00 EST, Height, 80.3, kg, 04/23/20 20:50:00 EDT, Dry Weight Start Date: 08/14/20 Stop Date: 02/10/21 Status: Ordered traZODone 100 mg oral tablet TAKE 1 TO 2 TABLETS BY MOUTH AT BEDTIME NEEDED Start Date: 04/23/20 Status: Ordered ziprasidone 20 mg oral capsule TAKE 1 CAPSULE BY MOUTH EVERY DAY IN THE EVENING Start Date: 04/23/20 Status: Ordered Problem List Condition Effective Dates Status Health Status Inform ant Bipolar(Confirmed) Active Diabetes mellitus type II(Confirmed) Active Epilepsy, Unspecified(Confirmed) Active Narcolepsy(Confirmed) Active Postmenopausal Bleeding(Confirmed) 04/19/11 Active Rheumatoid arthritis(Confirmed) Active Schizoaffective disorder(Confirmed) Active Social History Social History Type Response Smoking Status Former smoker entered on: 08/29/14 Sex
--- OUTSIDE RECORDS SUMMARY | 2022-10-25 14:04 | XMS_ITS | Continuity of Care Document ---
Author Name Unknown Organization [facility] Address [address] [place] [address] [address], [address] [place] [address]- Care Team Providers Care Inspector Semiconductor Wafer Name Role Phone Clari Jim MD Primary Care Physician [place] [facility]s): 12/01/21 - 01/05/[address] [facility] [address] [place] [address] Drive, [address] [place] [address]- Attending Physician: Abraham Resendiz MD Referring Physician: [...] capsule, 0 Refills, Maintenance, 10/05/20 16:44:00 EDT, CRCluisa, [facility]/pharmacy #1234, FILL 07/07/20, 1 capsule By Mouth Daily,x30 days, 165, cm, 10/05/2113:20:00 EDT, Height, 80.3, kg, 04/23/20 20:50:00 E... Start Date: 10/05/20 Stop Date: 11/04/20 Status: Ordered Aimovig SureClick Autoinjector-aooe 140 mg/mL subcutaneous solution = 140 mg, Subcutaneous Infusion, Every 28 days, # 1 each, 3 Refills, Maintenance, 10/05/20 16:44:00EDT, [facility]/pharmacy #1234, Partial fill upon patient request if the prescription is for a schedule IIopioid drug., 165, cm, 10/05/20 14:20:00 EDT, Nitishigh... Start Date: 10/05/20 Status: Ordered celecoxib 200 [...] 11/02/21 8:05:00 EDT, Route to Pharmacy Electronically, [facility]/pharmacy #1234, Partial fill upon patient request if the prescription is for a schedule II o... Start Date: 11/02/21 Status: Ordered Keppra 500 mg oral tablet 3 tab, By Mouth, 3 times a day, # 120 tablet, 0 Refills, Maintenance, 11/26/20 22:32:00 EDT, Tablet, Partial fill upon patient request if the prescription is for a schedule II opioid drug. Start Date: 11/26/20 Status: Ordered OXcarbazepine 600 mg oral tablet TAKE 1 TABLET BY MOUTH TWICE A DAY Start Date: 04/23/20 Status: Ordered predniSONE 10 mg oral tablet 1 tablet = 10 mg, By Mouth, Every 24 hours, # 2 tablet, 0 Refills, Maintenance, 11/08/21 8:05:00 EDT, Tablet, [facility]/pharmacy #1234, Partial fill upon patient request if the prescription is for a schedule II opioid drug., 159, cm, 11/02/21 7:26:00 EDT, H... Start Date: 11/08/21 Stop Date: 11/10/21 Status: Ordered predniSONE 5 mg oral tablet [...] 2 times a day, 0 Refills, Maintenance, 10/30/21 9:34:00 EDT, Partial fill upon patient request if the prescription is for a schedule II opioid drug. Start Date: 10/30/21 Status: Ordered Topamax 50 mg oral tablet 1 tablet = 50 mg, By Mouth, 2 times a day, # 180 tablet, 1 Refills, Maintenance, 08/14/20 9:35:00 EST, Tablet, [facility]/pharmacy #1234, 165, cm, 05/12/20 14:25:00 EST, Height, 80.3, kg, 04/23/20 20:50:00 EDT, Dry Weight Start Date: 08/14/20 Stop Date: 02/10/21 Status: Ordered traMADol 50 mg oral tablet 1 tablet = 50 mg, By Mouth, Every 6 hours, PRN Pain , Severe, 0 Refills, Maintenance, 11/27/21 21:31:00 EDT, Partial fill upon patient request if the prescription is for a schedule II opioid drug. Start Date: 11/27/21 Status: Ordered traZODone 100 mg oral tablet [...] II(Confirmed) Active Epilepsy, Unspecified(Confirmed) Active Narcolepsy(Confirmed) Active Obese class I(Confirmed) Active Postmenopausal Bleeding(Confirmed) 04/19/11 Active Rheumatoid arthritis(Confirmed) Active Schizoaffective disorder(Confirmed) Active Social History Social History Type Response Smoking Status Former smoker, quit more than 30 days ago entered on: 11/27/21 Sex
--- OUTSIDE RECORDS SUMMARY | 2022-10-25 14:04 | XMS_ITS | Continuity of Care Document ---
Author Name Unknown Organization [facility] Address [address] [place] [address] [address], [address] [place] [address]- Care Team Providers Care Cable Way Operator Name Role Phone Diandra BULLOCK, Clari Feng Primary Care Physician Encounter [facility] [place] Date(s): 06/22/22 - 06/29/22 [facility] [address] [place] [address] Drive, [address] [place] [address]- Attending Physician: Martín BULLOCK, [address] Referring Physician: Young Maldonado Jr, DO Allergies, Adverse Reactions, Alerts Substance Reaction Severity [...] 0 Refills, Maintenance, 10/05/20 16:44:00 EDT, CRCapsule, [id number], FILL 07/07/20, 1 capsule By Mouth [...] 11/02/21 8:05:00 EDT, Route to Pharmacy Electronically, [facility]/pharmacy #[id number], Partial fill upon patient [...] 0 Refills, Maintenance, 03/13/22 17:45:00 EDT, Tablet, [facility]/pharmacy #[id number], Partial fill upon patient [...] tablet, 0 Refills, Maintenance, 06/04/22 12:14:00 EST, [facility]/pharmacy #[id number], Partial fill upon patient [...] arthritis Confirmed Active Schizoaffective disorder Confirmed Active Vital Signs Most recent to oldest [Reference Range]: 1 Height 160 cm (06/22/22 10:54 AM) Weight 59 kg (06/22/22 10:54 AM) Body Mass Index [18.5-24.99 kg/m2] 23.05 kg/m2 (06/22/22 10:54 AM) Social History Social History Type Response Smoking Status Former smoker, quit more than 30 days ago entered on: 11/27/21 Sex Patient Care team information Care Team Personnel Name: Diandra BULLOCK, Clari Feng Position: [facility] Physician (General Medicine) Member Role: PCP Address: Address: [address] [place] [address]- Name: Bronwyn MON, Lorin Position: S RN Member Role: Primary Care Nurse Name: Sunni Bernal RN Position: S RN Member Role: Primary Care Nurse Name: Robbie Mondragon RN Position: [facility] RN Supv Member Role: Primary Care Nurse Care Team Related Persons Name: DARRIN HARDY Address: home [address] [address] Name: DARRIN SCOTT Address: [address] [address] Name: MARIBEL CALLES Address: home [address] [place] [address]
--- OUTSIDE RECORDS SUMMARY | 2022-10-25 14:05 | XMS_ITS | Continuity of Care Document ---
Author Name Unknown Organization [facility] Address [address] [place] [address] [address], [address] [place] [address]- Care Team Providers Care Systems Administration Analyst Name Role Phone Diandra BULLOCK, Clari Feng Primary Care Physician Encounter [facility] [place] Date(s): 12/06/21 - 01/05/22 [facility] [address] [place] [address] Drive, [address] [place] [address]- Attending Physician: AdmJayro rome Admitting Physician: AdmtrJayro Referring Physician: Admtr, Ar8 Allergies, Adverse Reactions, [...] 0 Refills, Maintenance, 10/05/20 16:44:00 EDT, CRCluisa, [facility]/pharmacy #[id number], FILL 07/07/20, 1 capsule By Mouth Daily,x30 days, 165, cm, 10/05/2113:20:00 EDT, Height, 80.3, kg, 04/23/20 20:50:00 E... Start Date: 10/05/20 Stop Date: 11/04/20 Status: Ordered Aimovig SureClick Autoinjector-aooe 140 mg/mL subcutaneous solution = 140 mg, Subcutaneous Infusion, Every 28 days, # 1 each, 3 Refills, Maintenance, 10/05/20 16:44:00EDT, [facility]/pharmacy #1234, Partial fill upon patient request [...] 11/02/21 8:05:00 EDT, Route to Pharmacy Electronically, [facility]/pharmacy #[id number], Partial fill upon patient request [...] 0 Refills, Maintenance, 11/08/21 8:05:00 EDT, Tablet, [facility]/pharmacy #1234, Partial fill upon patient request [...] 1 Refills, Maintenance, 08/14/20 9:35:00 EST, Tablet, [facility]/pharmacy #1234, 165, cm, 05/12/20 14:25:00 EST, Height, [...]
--- OUTSIDE RECORDS SUMMARY | 2022-10-25 14:05 | XMS_ITS | Continuity of Care Document ---
Author Name Unknown Organization [facility] ter Address [address] [place] [address]- Care Team Providers Care Flare Maker Name Role Phone Diandra BULLOCK, Je Primary Care Physician [phone] [id number] Date(s): 07/26/19 - 07/26/[address] [address]- [facility] Attending Physician: Roula KENYON , Sarah Hamlin Allergies, Adverse Reactions, Alerts Substance Reaction Severity [...] tablet, 1Refills, Soft Stop, 06/12/19 9:30:00 EST, [facility]/pharmacy #[id number], 160, cm, 03/21/19 11:48:00 EDT, Height [...] IN AM AND 2 TABLETS IN PM, [facility]/pharmacy #1234 Start Date: 03/19/19 Status: Ordered trazodone [...]
--- OUTSIDE RECORDS SUMMARY | 2022-10-25 14:05 | XMS_ITS | Continuity of Care Document ---
Author Name Unknown Organization [facility] Address [address] [place] [address] [address], [address] [place] [address]- Care Team Providers Care Purler Name Role Phone Clari Jim MD Primary Care Physician [place] [facility] [place]s): 11/23/21 - 12/31/21 [facility] [address] [place] [address] Drive, [address] [place] [address]- Attending Physician: Abraham Resendiz MD Referring Physician: [...] 8:05:00 EDT, Route to Pharmacy Electronically, [facility]/pharmacy #1234, Partial fill upon patient request [...] 0 Refills, Maintenance, 11/08/21 8:05:00 EDT, Tablet, [facility]/pharmacy #1234, Partial fill upon patient request [...] 1 Refills, Maintenance, 08/14/20 9:35:00 EST, Tablet, [facility]/pharmacy #1234, 165, cm, 05/12/20 14:25:00 EST, [...]
--- OUTSIDE RECORDS SUMMARY | 2022-10-25 14:05 | XMS_ITS | Continuity of Care Document ---
Author Name Unknown Organization [facility] Address [address] [place] [address] [address], [address] [place] [address]- Care Team Providers Care Fur Remodeler Name Role Phone Diandra BULLOCK, Clari Feng Primary Care Physician [place] [facility] [place] 09/14[place]22 - 10/14/22 [facility] [address] [place] [address] Drive, [address] [place] [address]- Allergies, Adverse Reactions, Alerts Substance Reaction Severity Status ampicillin hives Active penicillin hives Active Latex hives Active Immunizations Given and Recorded Vaccine Date Status Refusal Reason influenza virus vaccine, inactivated 02/15/17 [place] rded influenza virus vaccine, inactivated 03/13/14 [place] rded influenza virus vaccine, inactivated 04/30/10 [place] rded pneumococcal 23-valent vaccine 08/30/14 Given Medications Aimovig SureClick Autoinjector-aooe 140 mg/mL subcutaneous solution = 140 mg, Subcutaneous Infusion, Every 28 days, # 1 each, 3 Refills, Maintenance, 10/05/20 16:44:00EDT, [facility]/pharmacy #[id number], Partial fill upon patient request if the prescription is for a schedule IIopioid drug., 165, cm, 10/05/20 14:20:00 EDTJagdeep... Start Date: 10/05/20 Status: Ordered celecoxib 200 [...] 11/02/21 8:05:00 EDT, Route to Pharmacy Electronically, [facility]/pharmacy #1234, Partial fill upon patient request if [...] opioid drug. Start Date: 06/03/22 Status: Ordered imipramine 50 mg oral tablet 1 tablet = 50 mg, By Mouth, 3 times a day, 0 Refills, Maintenance, 09/04/22 10:27:00 EDT, Partial fill upon patient request if the prescription is for a schedule II opioid drug. Start Date: 09/04/22 Status: Ordered Keppra 750 mg oral tablet 2 tablet = 1,500 mg, By Mouth, 2 times a day, 0 Refills, Maintenance, 09/04/22 8:33:00 EDT, Partialfill upon patient request if the prescription is for a schedule II opioid drug. Start Date: 09/04/22 Status: Ordered OXcarbazepine 600 mg oral tablet TAKE 1 TABLET BY MOUTH TWICE A DAY Start Date: 04/23/20 Status: Ordered predniSONE 5 mg oral tablet 1 tablet = 5 mg, By Mouth, Daily, 0 Refills, Maintenance, 12/03/21 14:29:00 EDT, Partial fill upon patient request if the prescription is for a schedule II opioid drug. Start Date: 12/03/21 Status: Ordered PROzac 40 mg oral capsule 1 capsule = 40 mg, By Mouth, Daily in AM, 0 Refills, Maintenance, 03/21/19 10:15:40 EDT Start Date: 03/21/19 Status: Ordered Ritalin 20 mg oral tablet 1 tablet = 20 mg, By Mouth, 4 times a day, 0 Refills, Maintenance, 06/22/22 10:59:00 EST, Partial fill upon patient request if the prescription is for a schedule II opioid drug. Start Date: 06/22/22 Status: Ordered Topiramate By Mouth, 0 Refills, Maintenance, 09/04/22 10:26:00 EDT, Partial fill upon patient request if the prescription is for a schedule II opioid drug. Start Date: 09/04/22 Status: Ordered traZODone 100 mg oral tablet 100 mg, 1, tablet, By Mouth, Refills 0, Maintenance, 09/04/22 10:25:00 EDT, Partial fill upon patient request if the prescription is for a schedule II opioid drug. Start Date: 09/04/22 Status: Ordered ziprasidone 20 mg oral capsule 1 capsule = 20 mg, By Mouth, Daily at bedtime, 0 Refills, Maintenance, 09/04/22 10:27:00 EDT, Partial fill upon patient request if the prescription is for a schedule II opioid drug. Start Date: 09/04/22 Status: Ordered ziprasidone 60 mg oral capsule 1 capsule = 60 mg, By Mouth, 2 times a day, 0 Refills, Maintenance, 09/04/22 10:27:00 EDT, Partial fill upon patient request if the prescription is for a schedule II opioid drug. Start Date: 09/04/22 Status: Ordered Problem List Condition Confirmation Course [...] Personnel Name: Diandra BULLOCK, Clari Feng Position: [facility] Physician (General Medicine) Member Role: PCP Address: Address: [address] [place] [address] [place] [address]- Name: Lorin Barnhart RN Position: S RN Member Role: Primary Care Nurse Name: Sunni Bernal RN Position: S RN Member Role: Primary Care Nurse Care Team Related Persons Name: DARRIN HARDY Address: [address] Name: DARRIN SCOTT Address: [address] Name: MARIBEL CALLES Address: home [address] [place] [address]
[2022-10-25] MEDS: Methylphenidate HCl 10 MG TABLET 20 MG PO ×2 (14:19→17:26)
[2022-10-25] MEDS: methylPREDNISolone Sod Succ 125 MG/2 ML VIAL 60 MG IVPUSH (14:19)
[2022-10-25] MEDS: Morphine Sulfate 4 MG/ML CARTRIDGE 2 MG IVPUSH (14:19)
--- NOTE | 2022-10-25 14:20 | PC.NURSE ---
Patient resting on stretcher at this time. Patient complaining of leg and back pain for which she received morphine. Patient alert and oriented with some slurred speech which is baseline for patient. Patient is able to move all extremities without issue.
[2022-10-25 14:57] LABS: MANUAL DIFF FLAG NO
[2022-10-25 14:59] LABS: Basophils Percent Auto 0.3 % (0-2); Eosinophils Percent Auto 0.2 % (0-4); Hematocrit 41.7 % (37.0-47.0); Hemoglobin 14.1 g/dl (12.0-16.0); Imm Gran Abs Auto 0.02 X10*3/uL (0.00-0.03); Imm Gran Pct Auto 0.3 % (0.0-0.4); Lymphocytes Absolute Auto 1.1 X10*3/uL (1.2-4.9); Lymphocytes Percent Auto 19.8 % (20-40); Mean Corpuscular HGB Conc 33.8 g/dl (31.0-35.0); Mean Corpuscular Hemoglobin 33.3 pg (27.0-33.0); Mean Corpuscular Volume 98.6 fL (80.0-98.0); Mean Platelet Volume 8.7 fL (9.4-12.3); Monocytes Absolute Auto 0.2 X10*3/uL (0.1-1.2); Monocytes Percent Auto 3.3 % (2-11); Neutrophils Absolute Auto 4.4 x10*3/uL (2.0-8.3); Neutrophils Percent Auto 76.1 % (45-73); Platelet Count 245 X10*3/uL (160-400); Red Blood Count 4.23 X10*6/uL (4.20-5.50); Red Cell Distribution Width 11.8 % (11.0-16.0); White Blood Count 5.8 X10*3/uL (4.8-10.8)
[2022-10-25 15:07] LABS: INTERNATIONAL NORM RATIO 0.9 (0.9-1.1); Prothrombin Time 10.5 SEC (10.0-13.1)
[2022-10-25 15:08] VITALS: BP 101/58; PULSE 60; RESP 14; O2SAT 98
[2022-10-25 15:10] LABS: Partial Thromboplastin Time 39.7 SEC (26.0-36.4)
[2022-10-25 15:17] LABS: Alanine Aminotransferase 18 U/L (0-31); Albumin Level 4.4 g/dL (3.5-5.0); Alkaline Phosphatase 171 U/L (39-117); Anion Gap 10 (12-20); Aspartate Amino Transferase 18 U/L (5-31); Bilirubin Direct 0.1 mg/dL (0.0-0.5); Bilirubin Total 0.3 mg/dL (0.0-1.0); Blood Urea Nitrogen 14 mg/dL (9-16); Calcium 8.8 mg/dL (8.4-10.2); Carbon Dioxide 28 mmol/L (22-29); Chloride 107 mmol/L (96-108); Creatinine Clr Calc Pharmacy 47.4; Estimated Glomerular Filt Rate > 60; Ethanol < 10 mg/dL; Glucose Random 78 mg/dL (60-115); Magnesium 2.4 mg/dL (1.6-2.6); Potassium 3.5 mmol/L (3.3-5.1); Sodium 141 mmol/L (135-145); Total Protein 6.8 g/dL (6.5-8.0)
[2022-10-25] MEDS: Morphine Sulfate 4 MG/ML CARTRIDGE IVPUSH (16:01)
[2022-10-25 17:38] VITALS: BP 109/51; PULSE 66; RESP 18; O2SAT 98
== END 2022-10-25 17:40 | disposition home or self-care (01) ==
PROVIDERS: Physician Assistant; Emergency Provider Emergency Medicine Emergency Medical Services; PCP Internal Medicine
DX: M51.36 Other intervertebral disc degeneration, lumbar region (principal); M79.10 Myalgia, unspecified site; R53.1 Weakness; R51.9 Headache, unspecified; M54.50 Low back pain, unspecified; Z79.899 Other long term (current) drug therapy
CPT/HCPCS: 36415; 70450; 72131; 80048; 80076; 80307; 83735; 85025; 85610; 85730; 93005; 96374; 96375; 96376; 99284; J2270; J2930

== ENCOUNTER 2022-11-09 13:42 | Emergency (ER) | payer MEDICARE, MEDICAID, SELFPAY ==
[2022-11-09 14:06] VITALS: PULSE 76; RESP 18; TEMP 36.8; O2SAT 100; BMI 19.8
--- OUTSIDE RECORDS SUMMARY | 2022-11-09 14:47 | XMS_ITS | Continuity of Care Document ---
Author Name Unknown Organization [facility] Address [address] [place] [address] [address], [address] [place] [address]- Care Team Providers Care Lidar Technician Name Role Phone Diandra BULLOCK, Clari Feng Primary Care Physician Encounter [facility] [place] Date(s): 09/26/22 - 10/26/22 [facility] [address] [place] [address] Drive, [address] [place], [place] [address] Attending Physician: AdmJayro rome Admitting Physician: AdmJayro rome Referring Physician: Mateo Thomas8 Referring Physician: Sylvia Stout Allergies, Adverse Reactions, Alerts Substance Reaction Severity [...] 1 each, 3 Refills, Maintenance, 10/05/20 16:44:00EDT, [facility]/pharmacy #[id number], Partial fill upon patient [...] 11/02/21 8:05:00 EDT, Route to Pharmacy Electronically, [facility]/pharmacy #[id number], Partial fill upon patient request if the [...] A DAY Start Date: 04/23/20 Status: Ordered PROzac 40 mg oral capsule [...] Personnel Name: Diandra BULLOCK, Clari Feng Position: [facility] Physician (General Medicine) Member Role: PCP Address: Address: [address] [place] [address] [place] [address]- Name: Lorin Barnhart RN Position: S RN Member Role: Primary Care Nurse Name: Sunni Bernal RN Position: S RN Member Role: Primary Care Nurse Care Team Related Persons Name: DARRIN HARDY Address: [address] Name: DARRIN SCOTT Address: [address] Name: MARIBEL CALLES Address: home [address] [place] [address]
--- OUTSIDE RECORDS SUMMARY | 2022-11-09 14:47 | XMS_ITS | Continuity of Care Document ---
Author Name Unknown Organization [facility] Address [address] [place] [address] [address], [address] [place] [address]- Care Team Providers Care Aadc Plans Staff Officer Name Role Phone Clari Jim MD Primary Care Physician Encounter [facility] [place] Date(s): 09/14/22 - 10/26/22 [facility] [address] [place] [address] Drive, [address] [place] [address]- Attending Physician: Abraham Resendiz MD Referring Physician: [...] each, 3 Refills, Maintenance, 10/05/20 16:44:00EDT, [facility]/pharmacy #[id number], Partial fill upon patient request if the prescription is for a schedule IIopioid drug., 165, cm, 10/05/20 14:20:00 EDT, Jagdeep... Start Date: 10/05/20 Status: Ordered celecoxib 200 [...] 8:05:00 EDT, Route to Pharmacy Electronically, [facility]/pharmacy #[id number], Partial fill upon patient request if [...] Personnel Name: Diandra BULLOCK, Clari Feng Position: [facility] Physician (General Medicine) Member Role: PCP Address: Address: [address] [place] [address]- Name: Lorin Barnhart RN Position: S RN Member Role: Primary Care Nurse Name: Sunni Bernal RN Position: S RN Member Role: Primary Care Nurse Care Team Related Persons Name: DARRIN HARDY Address: [address] Name: DARRIN SCOTT Address: [address] [address] Name: MARIBEL CALLES Address: home [address] [place] [address]
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
[2022-11-09 15:10] LABS: COVID-19 Test Negative (Negative); IDNOW Serial# 9DB6401D
[2022-11-09 15:12] LABS: MANUAL DIFF FLAG NO
[2022-11-09 15:14] LABS: Basophils Percent Auto 0.4 % (0-2); Eosinophils Percent Auto 0.2 % (0-4); Hematocrit 34.2 % (37.0-47.0); Hemoglobin 11.9 g/dl (12.0-16.0); Imm Gran Abs Auto 0.01 X10*3/uL (0.00-0.03); Imm Gran Pct Auto 0.2 % (0.0-0.4); Lymphocytes Percent Auto 20.2 % (20-40); Mean Corpuscular HGB Conc 34.8 g/dl (31.0-35.0); Mean Corpuscular Hemoglobin 33.5 pg (27.0-33.0); Mean Corpuscular Volume 96.3 fL (80.0-98.0); Mean Platelet Volume 8.9 fL (9.4-12.3); Monocytes Absolute Auto 0.1 X10*3/uL (0.1-1.2); Monocytes Percent Auto 2.9 % (2-11); Neutrophils Absolute Auto 3.7 x10*3/uL (2.0-8.3); Neutrophils Percent Auto 76.1 % (45-73); Platelet Count 239 X10*3/uL (160-400); Red Blood Count 3.55 X10*6/uL (4.20-5.50); Red Cell Distribution Width 11.3 % (11.0-16.0); White Blood Count 4.8 X10*3/uL (4.8-10.8)
[2022-11-09 16:22] LABS: Glucose Random 84 mg/dL (60-115)
[2022-11-09 16:25] LABS: Alanine Aminotransferase 14 U/L (0-31); Albumin Level 3.8 g/dL (3.5-5.0); Alkaline Phosphatase 138 U/L (39-117); Anion Gap 10 (12-20); Aspartate Amino Transferase 17 U/L (5-31); Bilirubin Total 0.5 mg/dL (0.0-1.0); Blood Urea Nitrogen 11 mg/dL (9-16); Calcium 8.3 mg/dL (8.4-10.2); Carbon Dioxide 25 mmol/L (22-29); Chloride 102 mmol/L (96-108); Creatinine Clr Calc Pharmacy 58.4; Estimated Glomerular Filt Rate > 60; Ethanol < 10 mg/dL; Potassium 3.7 mmol/L (3.3-5.1); Sodium 133 mmol/L (135-145); Total Protein 5.8 g/dL (6.5-8.0)
--- NOTE | 2022-11-09 17:36 | PC.NURSE ---
Pt sleeping, woke for urine sample, Pt unable at this time. Denies, SI, C/O AH. Left to rest.
--- NOTE | 2022-11-09 17:40 | PC.NURSE ---
Noted large brused area on L forearm
[2022-11-09 18:41] LABS: Appearance Urine Clear; Color Urine Yellow; Glucose Urine UA Negative (Negative); Leukocyte Esterase Urine Trace (Negative); Nitrite Urine Positive (Negative); PH 6.5 (5.0-9.0); Specific Gravity - Urine 1.015 (1.005-1.025); UMIC TRIGGER UACC YES; Urine Blood Negative (Negative); Urine Ketones Negative (Negative); Urine Protein Negative (Neg-Trace)
[2022-11-09 18:43] LABS: Bacteria Urine 4+ (None Seen); RBC Urine 0-2 /HPF (0-2); UACC Culture Trigger YES; WBC Urine 0-5 /HPF (0-5)
[2022-11-09 18:55] LABS: Amphetamine Screen Urine Not Detected (Not Detect); Barbiturates, Urine Not Detected (Not Detect); Benzodiazepines Screen Urine Not Detected (Not Detect); Cannabinoid Screen Urine Not Detected (Not Detect); Cocaine Screen Urine Not Detected (Not Detect); Fentanyl, urine Not Detected (Not Detect); Opiate Screen Urine Not Detected (Not Detect); Phencyclidine Screen Urine Not Detected (Not Detect)
[2022-11-09 20:45] VITALS: BP 90/51; PULSE 60; RESP 18; TEMP 36.5; O2SAT 95
--- NOTE | 2022-11-09 21:06 | PC.NURSE ---
Patient BP was first assessed at 2044 and was 90/51, provider made aware and okay with the BP, will continue to monitor.
[2022-11-09] MEDS: Gabapentin 300 MG CAPSULE PO (22:18)
[2022-11-09] MEDS: Topiramate 100 MG TABLET PO (22:18)
[2022-11-09] MEDS: Ziprasidone 60 MG CAPSULE PO (22:20)
== END 2022-11-09 22:25 | disposition home or self-care (01) ==
PROVIDERS: Emergency Provider Emergency Medicine; PCP Internal Medicine
DX: F33.1 Major depressive disorder, recurrent, moderate (principal); Z20.822 Contact with and (suspected) exposure to COVID-19; Z20.828 Contact with and (suspected) exposure to other viral communicable diseases; Z79.899 Other long term (current) drug therapy
CPT/HCPCS: 36415; 80053; 80307; 81001; 85025; 87086; 87088; 87186; 87635; 99285

== ENCOUNTER 2022-11-29 16:20 | Emergency (ER) | payer MEDICARE, MEDICAID, SELFPAY ==
--- NOTE | ~2022-11-29 | XR_ITS ---
EXAMINATION: XR LUMBOSACRAL SPINE CLINICAL INFORMATION: Low back pain status post fall. COMPARISON: CT scan of the lumbar spine dated 10/25/2022. TECHNIQUE: Three views of the lumbosacral spine. FINDINGS: There is normal lumbar lordosis and spinal alignment. Moderate to severe multilevel degenerative disc disease is seen most pronounced at L2-3. There is mild lumbar dextroscoliosis. The soft tissues are unremarkable. XR/XR lumbar spine 2-3V IMPRESSION: Mild lumbar dextroscoliosis and moderate to severe multilevel degenerative disc disease. No acute fracture.
[2022-11-29 16:28] VITALS: BP 92/58; PULSE 66; RESP 22; TEMP 36.1; O2SAT 99; BMI 19.3
--- NOTE | 2022-11-29 16:28 | ED_ITS ---
HPI - Back Pain/Injury General Chief Complaint: Back Pain/Injury Stated Complaint: dose of adderall Time Seen by Provider: 11/29/22 22:36 History of Present Illness HPI Narrative: Patient is a 67-year-old female presents today with having fallen subsequently having lower back pain. Patient denies any bowel urinary incontinence. There is no focal weakness. Patient is from home. Ambulates with normal gait. Positive history of spinal stenosis in the past. Patient not on blood thinners. Related Data Home Medications Medication Instructions Recorded Confirmed celecoxib 200 mg capsule 200 mg PO BID 11/09/22 11/09/22 erenumab-aooe 140 mg/mL 140 mg subcut Q4W 11/09/22 11/09/22 subcutaneous auto-injector (Aimovig Autoinjector) fluoxetine 10 mg capsule 10 mg PO QAM 11/09/22 11/09/22 fluoxetine 40 mg capsule 40 mg PO QAM 11/09/22 11/09/22 furosemide 40 mg tablet 40 mg PO BID 11/09/22 11/09/22 gabapentin 300 mg capsule 300 mg PO BID 11/09/22 11/09/22 methylphenidate HCl 20 mg tablet 20 mg PO TID 11/09/22 11/09/22 prednisone 5 mg tablet 5 mg PO DAILY 11/09/22 11/09/22 topiramate 100 mg tablet 100 mg PO BID 11/09/22 11/09/22 ziprasidone HCl 60 mg capsule 60 mg PO BID 11/09/22 11/09/22 Allergies Allergy/AdvReac Type Severity Reaction Status Date / Time latex [Latex] Allergy Intermediate SWELLING Verified 11/29/22 16:32 ampicillin [Ampicillin] Allergy Mild ITCHING Verified 11/29/22 16:32 potassium chloride Allergy Mild ITCHING Verified 11/29/22 16:32 [Potassium Chloride] Review of Systems 2 Review of Systems: Positive back pain Yes all other systems are reviewed and are negative [facility] Past Medical History Attestation statement: The following information was validated with the patient. Social History Social History Alcohol intake: unknown Advance Directives: No Advance Directives Information Provided: No Physical Exam Vital Signs: Vital Signs: Last Vital Signs Temp 97.1 F 11/29/22 19:28 Pulse 61 06/06/23 19:28 Resp 16 11/29/22 19:28 BP 132/66 11/29/22 19:28 Pulse Ox 100 11/29/22 19:28 O2 Del Method Room Air 11/29/22 19:28 BMI result Body Mass Index 19.3 Appearance: Alert. Oriented X3. No acute distress. Eyes: Pupils equal, round and reactive to light. ENT: Pharynx normal. Neck: Normal inspection. Neck supple. No lymph nodes noted. No crepitus CVS: Normal heart rate and rhythm. Pulses normal. Normal S1 and S2 Respiratory: No respiratory distress. Breath sounds normal. No Wheezing. No rales Examination of the back showed no gross spinal tenderness elicited on palpation. No paraspinal muscle tenderness. Patient is able to sit at the side of the bed without any difficulty. Abdomen: Soft and nontender. No rigidity. No distention. good BS x4 Skin: Skin warm and dry. Normal skin color. Normal skin turgor. Extremities: No lower extremity edema. Neurovascular intact to all extremities. No Lacerations. No Rash. Normal gait patient walking pacing around the room without any difficulty. Neuro: Oriented X 3. No motor deficit. No sensory deficit. Moving all extermities. No slurred speech Course Course Course Narrative: RME - 67 yo who presents with hx of spinal stenosis who [facility] [employer] [facility] states lower back pain for a week and is a 10/10. She reports that she fell 7 days ago, and reports that she had a seizure and fell on her back. Pain is on left lumbar spine. Ambulates with steady gait out of triage. Plan: Xray of lumbar spine Medical Decision Making Medical Decision Making [facility] Narrative: Patient has no bowel or urinary incontinence. No focal weakness. Ambulates with a normal gait. Fell hit her lower back. X-ray of the low back showed no acute fracture. She is currently in stable condition. Will discharge patient home. She is already on pain medications. Differential Diagnosis Fracture chorda coronary syndrome Radiology Impression Discussion of test interpretation with radiology: I have reviewed the radiologist's reading. Discharge Plan Discharge Clinical Impression: Strain of lumbar region Patient Disposition: Home, Self-Care Instructions: Acute Low Back Pain (ED) Prescriptions: No Action fluoxetine 40 mg capsule 40 mg PO QAM prednisone 5 mg tablet 5 mg PO DAILY fluoxetine 10 mg capsule 10 mg PO QAM methylphenidate HCl 20 mg tablet 20 mg PO TID gabapentin 300 mg capsule 300 mg PO BID ziprasidone HCl 60 mg capsule 60 mg PO BID Aimovig Autoinjector 140 mg/mL auto-injector 140 mg subcut Q4W celecoxib 200 mg capsule 200 mg PO BID furosemide 40 mg tablet 40 mg PO BID topiramate 100 mg tablet 100 mg PO BID Referrals: Clari Jim MD [Primary Care Provider] - 12/01/22
[2022-11-29 19:28] VITALS: BP 132/66; PULSE 61; RESP 16; TEMP 36.2; O2SAT 100
[2022-11-29 23:20] VITALS: BP 116/56; PULSE 58; RESP 18; TEMP 36.2; O2SAT 98
--- NOTE | 2022-11-29 23:20 | MHC.EDTECH ---
Patient is sitting in chair awaiting discharge, vitals were taken
== END 2022-11-29 23:40 | disposition home or self-care (01) ==
PROVIDERS: Emergency Provider Emergency Medicine Emergency Medical Services; PCP Internal Medicine
DX: S39.012A Strain of muscle, fascia and tendon of lower back, initial encounter (principal); W19.XXXA Unspecified fall, initial encounter; Y93.9 Activity, unspecified; Y92.9 Unspecified place or not applicable; Y99.9 Unspecified external cause status
CPT/HCPCS: 72100; 99283

== ENCOUNTER 2023-12-01 09:46 | Emergency (ER) | payer MEDICARE, MEDICAID, SELFPAY ==
[2023-12-01 09:49] VITALS: BP 108/67; PULSE 80; RESP 18; TEMP 36.2; O2SAT 98; BMI 20.9
[2023-12-01 10:10] LABS: MANUAL DIFF FLAG NO
[2023-12-01 10:18] LABS: Basophils Percent Auto 0.3 % (0-2); Eosinophils Percent Auto 0.4 % (0-4); Hematocrit 40.6 % (37.0-47.0); Hemoglobin 13.4 g/dl (12.0-16.0); Imm Gran Abs Auto 0.04 X10*3/uL (0.00-0.03); Imm Gran Pct Auto 0.4 % (0.0-0.4); Lymphocytes Absolute Auto 1.3 X10*3/uL (1.2-4.9); Lymphocytes Percent Auto 14.1 % (20-40); Mean Corpuscular Volume 96.9 fL (80.0-98.0); Mean Platelet Volume 8.7 fL (9.4-12.3); Monocytes Absolute Auto 0.2 X10*3/uL (0.1-1.2); Monocytes Percent Auto 2.6 % (2-11); Neutrophils Absolute Auto 7.6 x10*3/uL (2.0-8.3); Neutrophils Percent Auto 82.2 % (45-73); Platelet Count 296 X10*3/uL (160-400); Red Blood Count 4.19 X10*6/uL (4.20-5.50); Red Cell Distribution Width 12.5 % (11.0-16.0); White Blood Count 9.2 X10*3/uL (4.8-10.8)
[2023-12-01 10:27] LABS: Alanine Aminotransferase 23 U/L (0-31); Alkaline Phosphatase 108 U/L (39-117); Anion Gap 14 (12-20); Aspartate Amino Transferase 20 U/L (5-31); Bilirubin Total 0.3 mg/dL (0.0-1.0); Blood Urea Nitrogen 15 mg/dL (9-16); Calcium 8.6 mg/dL (8.4-10.2); Carbon Dioxide 30 mmol/L (22-29); Chloride 101 mmol/L (96-108); Creatinine Clr Calc Pharmacy 57.9; Estimated Glomerular Filt Rate > 60; Glucose Random 98 mg/dL (60-115); Potassium 3.6 mmol/L (3.3-5.1); Sodium 141 mmol/L (135-145); Total Protein 6.8 g/dL (6.5-8.0)
--- OUTSIDE RECORDS SUMMARY | 2023-12-01 15:07 | XMS_ITS | Continuity of Care Document ---
Author Organization [facility] Address [address] [place] [address] [address], [address] [place] [address]- Care Team Providers Care Picker And Packer Name Role Phone Diandra BULLOCK, Clari Feng Primary Care Physician Encounter [facility] [place] [facility]CT R [id number] Date(s): 07/17/23 - 09/01/23 [facility] [address] [place] [address] Drive, [address] [place] [address]- Attending Physician: Martín BULLOCK, [address] Referring Physician: Young Maldonado Jr, DO Allergies, Adverse Reactions, Alerts Substance Reaction Severity Status ampicillin hives Active penicillin hives Active Latex hives Active Immunizations Given and Recorded Vaccine Date Status Refusal Reason tetanus/diphtheria/pertussis, acel(Tdap) 05/08/23 Given tetanus/diphtheria/pertussis, acel(Tdap) 03/18/23 Given influenza virus vaccine, inactivated 02/15/17 [place] rded influenza virus vaccine, inactivated 03/13/14 [place] rded influenza virus vaccine, inactivated 04/30/10 [place] rded pneumococcal 23-valent vaccine 08/30/14 Given Medications Aimovig SureClick Autoinjector-aooe 140 mg/mL subcutaneous solution = 140 mg, Subcutaneous Infusion, Every 28 days, # 1 each, 3 Refills, Maintenance, 10/05/20 16:44:00EDT, [facility]/pharmacy #[id number], Partial fill upon patient request if the prescription is for a schedule IIopioid drug., 165, cm, 10/05/20 14:20:00 EDTJagdeep... Start Date: 10/05/20 Status: Ordered EC Naprosyn 500 mg oral enteric coated tablet 1 tablet = 500 mg, By Mouth, 2 times a day, PRN Pain , Moderate, # 20 tablet, 0 Refills, Maintenance, 03/18/23 21:59:00 EDT, EC Tablet, [facility]/pharmacy #[id number], Partial fill upon patient request if the prescription is for a schedule II opioid drug., 160, c... Start Date: 03/18/23 Status: Ordered gabapentin 400 mg oral capsule 400 mg, 1, capsule, By Mouth, 3 times a day, # 90 capsule, Refills 0, Tot. Refills 0, Maintenance, 11/02/21 8:05:00 EDT, Route to Pharmacy Electronically, [facility]/pharmacy #[id number], Partial fill upon patient request if the prescription is for a schedule II o... Start Date: 11/02/21 Status: Ordered imipramine 50 mg oral tablet [...] opioid drug. Start Date: 09/04/22 Status: Ordered methylphenidate 20 mg oral tablet 1 tablet = 20 mg, By Mouth, 3 times a day, last dose before 6 PM, # 3 tablet, 0 Refills, Maintenance, 01/24/23 14:29:00 EDT, Tablet, [facility]/pharmacy #[id number], Partial fill upon patient request if the prescription is for a schedule II opioid drug., 160, cm,... Start Date: 01/24/23 Stop Date: 01/25/23 Status: Ordered methylphenidate 20 mg oral tablet 1 tablet = 20 mg, By Mouth, 3 times a day, # 12 tablet, 0 Refills, Maintenance, 01/19/23 12:39:00 EDT, Tablet, [facility]/pharmacy #[id number], Partial fill upon patient request if the prescription is for a schedule II opioid drug., 160, cm, 01/19/23 11:45:00 EDT,... Start Date: 01/19/23 Stop Date: 01/23/23 Status: Ordered OXcarbazepine 600 mg oral tablet TAKE 1 TABLET BY MOUTH TWICE A DAY Start Date: 04/23/20 Status: Ordered PROzac 40 mg oral capsule 1 capsule = 40 mg, By Mouth, Daily in AM, 0 Refills, Maintenance, 03/21/19 10:15:40 EDT Start Date: 03/21/19 Status: Ordered Problem List Condition Confirmation Course Effective Dates Status H ealth Status Informant Gait disturbance Confirmed Active Weakness Confirmed Active Bipolar Confirmed Active Diabetes mellitus type II Confirmed Active Epilepsy, Unspecified Confirmed Active Generalized pain Confirmed Active History of CHF (congestive heart failure) Confirmed Active Hx-TIA (transient ischemic attack) Confirmed Active Hypokalemia Confirmed Active Hypokalemia Confirmed Active Narcolepsy Confirmed Active Postmenopausal Bleeding Confirmed 04/19/11 Active Rheumatoid arthritis Confirmed Active Schizoaffective disorder Confirmed Active Social History Social History Type Response Smoking Status Former smoker, quit more than 30 days ago entered on: 11/27/21 Sex Patient Care team information Care Team Personnel Name: Diandra BULLOCK, Clari Feng Position: [facility] Physician - Primary Care Member Role: PCP Address: Address: [address] [place] [address]- Name: Bronwyn MON, Lorin Position: S RN Member Role: Primary Care Nurse Name: Nusrat Cornejo RN Position: [facility] RN Member Role: Primary Care Nurse Care Team Related Persons Name: DARRIN HARDY Address: home [address] [address] Name: DARRIN SCOTT Address: [address] Name: MARIBEL CALLES Address: home [address] [place] [address]
--- OUTSIDE RECORDS SUMMARY | 2023-12-01 15:07 | XMS_ITS | Continuity of Care Document ---
Author Organization [facility] Address [address] [place] [address] [address], [address] [place] [address]- Care Team Providers Care Infection Control Coordinator Name Role Phone Diandra BULLOCK, Clrai Feng [id number]s): [facility] - 12/07/22 [facility] [address] [place] [address] Drive, [address] [place] [address]- Attending Physician: Martín BULLOCK, [address] Allergies, Adverse Reactions, Alerts Substance Reaction Severity [...] 1 each, 3 Refills, Maintenance, 10/05/20 16:44:00EDT, [facility]/pharmacy #[id number], Partial fill upon patient request [...] 11/02/21 8:05:00 EDT, Route to Pharmacy Electronically, [facility]/pharmacy #[id number], Partial fill upon patient request [...] Personnel Name: Diandra BULLOCK, Clari Feng Position: [facility] Physician - Primary Care Member Role: PCP Address: Address: [address] [place] [address]- Name: Lorin Barnhart RN Position: S RN Member Role: Primary Care Nurse Name: Sunni Bernal RN Position: S RN Member Role: Primary Care Nurse Care Team Related Persons Name: DARRIN HARDY Address: home [address] [address] Name: DARRIN SCOTT Address: home [address] [address] Name: MARIBEL CALLES Address: home [address] [place] [address]
--- OUTSIDE RECORDS SUMMARY | 2023-12-01 15:07 | XMS_ITS | Continuity of Care Document ---
Author Organization [facility] Address [address] [place] [address] [address], [address] [place] [address]- Care Team Providers Care Title One Teacher Name Role Phone Diandra BULLOCK, Clari Feng Primary Care Physician Encounter [facility] [place] Date(s): 07/17/23 - 08/16/23 [facility] [address] [place] [address] Drive, [address] [place], [place] [address] Allergies, Adverse Reactions, Alerts Substance Reaction Severity [...] EDT, Jagdeep... Start Date: 10/05/20 Status: Ordered EC Naprosyn 500 mg oral enteric coated tablet 1 tablet = 500 mg, By Mouth, 2 times a day, PRN Pain , Moderate, # 20 tablet, 0 Refills, Maintenance, 03/18/23 21:59:00 EDT, EC Tablet, [facility]/pharmacy #[id number], Partial fill upon patient request if the prescription is for a schedule II opioid drug., 160, c... Start Date: 03/18/23 Status: Ordered gabapentin 400 mg oral capsule 400 mg, 1, capsule, By Mouth, 3 times a day, # 90 capsule, Refills 0, Tot. Refills 0, Maintenance, 11/02/21 8:05:00 EDT, [id number] Partial fill upon patient request if [...] 0 Refills, Maintenance, 01/24/23 14:29:00 EDT, Tablet, [facility]/pharmacy #[id number], Partial fill upon patient request if the prescription is for a schedule II opioid drug., 160, cm,... Start Date: 01/24/23 Stop Date: 01/25/23 Status: Ordered methylphenidate 20 mg oral tablet 1 tablet = 20 mg, By Mouth, 3 times a day, # 12 tablet, 0 Refills, Maintenance, 01/19/23 12:39:00 EDT, Tablet, [facility]/pharmacy #[id number], Partial fill upon patient [...] Primary Care Member Role: PCP Address: Address: [address] [place] [id number]- Name: Bronwyn MON, Lorin Position: S RN Member Role: Primary Care Nurse Name: Nusrat Cornejo RN Position: S RN Member Role: Primary Care Nurse Care Team Related Persons Name: DARRIN HARDY Address: [address] Name: DARRIN SCOTT Address: [address] Name: MARIBEL CALLES Address: home [address] [place] [address]
--- OUTSIDE RECORDS SUMMARY | 2023-12-01 15:07 | XMS_ITS | Continuity of Care Document ---
Author Organization [facility] ter Address [address] [place] [id number]- Care Team Providers Care Chlorination Operator Name Role Phone Clari Jim MD Primary Care Physician ( [phone] Encounter [facility] [place] Date(s): 10/16/23 - 10/16/[address] [address]- Discharge Disposition: A-D/C Home Attending Physician: Clari Herzog MD Admitting Physician: Clari Herzog MD Referring Physician: Not on Staff, Referring MD Allergies, Adverse Reactions, Alerts Substance Reaction Severity Status ampicillin hives Active penicillin hives Active Bananas Active Latex hives Active Immunizations Given and Recorded Vaccine Date Status Refusal Reason tetanus/diphtheria/pertussis, acel(Tdap) 05/08/23 Given tetanus/diphtheria/pertussis, acel(Tdap) 03/18/23 Given influenza virus vaccine, inactivated 02/15/17 [place] rded influenza virus vaccine, inactivated 03/13/14 [place] rded influenza virus vaccine, inactivated 04/30/10 [place] r[place] pneumococcal 23-valent vaccine 08/30/14 Given Medications acetaminophen 500 mg oral tablet 2 tablet = 1,000 mg, By Mouth, Every 6 hours, PRN as needed for pain, for 3 days, # 24 tablet, 0 Refills, Acute 10/19/23 15:51:00 EDT, 10/16/23 15:51:00 EDT, Tablet, [facility] #[id number], Partial fill upon patient request if the prescription is... Start Date: 10/16/23 Stop Date: 10/19/23 Status: Ordered Aimovig SureClick Autoinjector-aooe 140 mg/mL subcutaneous solution = 140 mg, Subcutaneous Infusion, Every 28 days, # 1 each, 3 Refills, Maintenance, 10/05/20 16:44:00EDT, [id number], Partial fill upon patient request if the prescription is for a schedule IIopioid drug., 165, cm, 10/05/20 14:20:00 EDT, Heigh... Start Date: 10/05/20 Status: Ordered celecoxib 200 mg oral capsule 1 capsule = 200 mg, By Mouth, 2 times a day, 0 Refills, Maintenance, 09/21/23 16:36:00 EDT, Partialfill upon patient request if the prescription is for a schedule II opioid drug. Start Date: 09/21/23 Status: Ordered EC Naprosyn 500 mg oral enteric coated tablet 1 tablet = 500 mg, By Mouth, 2 times a day, PRN Pain , Moderate, # 20 tablet, 0 Refills, Maintenance, 03/18/23 21:59:00 EDT, EC Tablet, [facility]/pharmacy #[id number], Partial fill upon patient request if the prescription is for a schedule II opioid drug., 160, c... Start Date: 03/18/23 Status: Ordered FLUoxetine 10 mg oral capsule 10 mg, 1, capsule, By Mouth, Daily, Take with one 40mg capsule for a total 50mg., # 30 capsule, Refills 0, Tot. Refills 0, Maintenance, 09/28/23 21:42:00 EDT, Route to Pharmacy Electronically, [facility]/pharmacy #[id number], Partial fill upon patient request if t... Start Date: 09/28/23 Stop Date: 10/28/23 Status: Ordered FLUoxetine 40 mg oral capsule 1 capsule = 40 mg, By Mouth, Daily, Take with one 10mg capsule for a total 50mg., # 30 capsule, 0 Refills, Maintenance, 09/28/23 21:42:00 EDT, Capsule, [facility]/pharm[facility] #1234, Partial fill upon patient request if the prescription is for a schedule II opio... Start Date: 09/28/23 Stop Date: 10/28/23 Status: Ordered furosemide 40 mg oral tablet 40 mg, 1, tablet, By Mouth, Daily, Refills 0, Maintenance, 09/21/23 16:37:00 EDT, Partial fill uponpatient request if the prescription is for a schedule II opioid drug. Start Date: 09/21/23 Status: Ordered gabapentin 400 mg oral capsule [...] By Mouth, 3 times a day, # 3 tablet, 0 Refills, Maintenance, 10/08/23 12:57:00 [id number] Partial fill upon patient request if the prescription is for a schedule II opioid drug., 160, cm, 10/08/23 7:45:00 EDT, H... Start Date: 10/08/23 Status: Ordered methylphenidate 20 mg oral tablet 1 tablet = 20 mg, By Mouth, 3 times a day, # 90 tablet, 0 Refills, Maintenance, 09/28/23 21:41:00 EDT, [facility]/pharm[facility] #[id number], Partial fill upon patient request if the prescription is for a schedule II opioid drug., 160, cm, 09/28/23 19:04:00 EDT, Height,... Start Date: 09/28/23 Stop Date: 10/28/23 Status: Ordered morphine 15 mg oral tablet, immediate release 1 tablet = 15 mg, By Mouth, Every 6 hours, PRN for pain, for 2 days, # 5 tablet, 0 Refills, Acute 10/18/23 15:51:00 EDT, 10/16/23 15:51:00 EDT, Tablet, [facility] #[id number], Partial fill upon patient request if the prescription is for a schedule... Start Date: 10/16/23 Stop Date: 10/18/23 Status: Ordered MorPHINE Immediate Release Tablet 15 mg, Tablet, By Mouth, Once, PRN for Pain , Severe, STAT, 10/16/23 12:08:00 EDT Start Date: 10/16/23 Stop Date: 10/16/23 Status: Completed OXcarbazepine 600 mg oral tablet TAKE 1 TABLET BY MOUTH TWICE A DAY Start Date: 04/23/20 Status: Ordered predniSONE 5 mg oral tablet 1 tablet = 5 mg, By Mouth, Daily, 0 Refills, Maintenance, 09/21/23 16:42:00 EDT, Partial fill upon patient request if the prescription is for a schedule II opioid drug. Start Date: 09/21/23 Status: Ordered topiramate 50 mg oral tablet 1 tablet = 50 mg, By Mouth, 2 times a day, 0 Refills, Maintenance, 09/21/23 16:44:00 EDT, Partial fill upon patient request if the prescription is for a schedule II opioid drug. Start Date: 09/21/23 Status: Ordered ziprasidone 20 mg oral capsule 1 capsule = 20 mg, By Mouth, Daily at supper, # 30 capsule, 0 Refills, Maintenance, 09/28/23 21:39:00 EDT, Capsule, [id number], Partial fill upon patient request if the prescription is for a schedule II opioid drug., 160, cm, 09/28/23 19:04:00... Start Date: 09/28/23 Status: Ordered ziprasidone 60 mg oral capsule 1 capsule = 60 mg, By Mouth, 2 times a day, Take two times a day, with meals. In the evening, take additional 20 mg capsule for a total 80 mg., # 60 capsule, 0 Refills, Maintenance, 09/28/23 21:39:00EDT, Capsule, [id number], Partial fill upon... Start Date: 09/28/23 Stop Date: 10/28/23 Status: Ordered Problem List Condition Confirmation Course [...] arthritis Confirmed Active Schizoaffective disorder Confirmed Active Results Radiology Reports * Exam Date Time Procedure Performing Provider Status 10/16/23 2:[address] Lumbar Spine W/O Contrast Jamel Mendes; Auth (Verified) Notes: (CT Lumbar Spine W/O Contrast) Reason For Exam: Spine fracture, lumbar, traumatic;Other: RESULT: CT Lumbar Spine W/O Contrast CT Thoracic Spine W/O Contrast, CT Lumbar Spine W/O Contrast INDICATION: Hx of Present Illness: fall back pain; Reason: Other:; Spine fracture, thoracic, traumatic; Clinical Question(s): Fracture Dislocation, Fracture/Dislocation TECHNIQUE: Noncontrast CT of the thoracic spine was performed. Bone and soft tissue algorithms werereconstructed along with coronal and sagittal computations. Weight-based protocol using automatic tube modulation was used to optimize exposure parameters. RADIATION DOSE PARAMETERS: CTDIvol Body: 15.80 mGy, DLP Body: 805 mGy*cm. COMPARISON: CT abdomen pelvis without contrast 11/25/2020, chest radiograph 02/04/2019 FINDINGS: Spine: No fractures or bone lesion. Minimal superior endplate deformities as T2 and T4 are likely chronic and may related to Schmorl's nodes. The alignment is maintained. Degenerative changes are noted including disc height loss and disc bulging with findings more pronounced at L2-L3 with near complete disc height loss, vacuum disc formation and cystic formation of the opposing endplates. This is progressed from 12/02/2021. There is a prominent posterior disc osteophyte complex at this level with moderate central canal stenosis. Severe disc height loss and endplate irregularity at L4-L5 and L5-S1. Moderate- severe central canalstenosis at L4-L5 and mild canal stenosis at L5-S1. Mild central canal stenosis at L3-L4. Soft tissues: No acute abnormality in the paravertebral soft tissues. Partially visualized distended urinary bladder. Scattered sigmoid diverticula without diverticulitis. IMPRESSION: 1. No acute fracture or malalignment. 2. Degenerative changes of the thoracic and lumbar spine, most pronounced at L2- L3, L4-L5 and L5-S1as described. 3. Multilevel central canal stenosis of the lower lumbar spine. WSN: [id number] Ordering Physician: Matilda Barnes Dictated By: Jimenez Ramos MD Dictated Date/Time: 10/16/23 3:37 pm Reviewed By: Jimenez Ramos MD Signed By: Jimenez Ramos MD Signed Date/Time: 10/16/23 3:37 pm Transcribed By: FRANCESCA Transcribed Date/Time: 10/16/23 3:25 pm * Exam Date Time Procedure Performing Provider Status 10/16/23 2:[address] Thoracic Spine W/O Contrast Martina Mendes; Auth (Verified) Notes: (CT Thoracic Spine W/O Contrast) Reason For Exam: Spine fracture, thoracic, traumatic;Other: RESULT: CT Thoracic Spine W/O Contrast CT Thoracic Spine W/O Contrast, CT Lumbar Spine W/O Contrast INDICATION: Hx of Present Illness: fall back pain; Reason: Other:; Spine fracture, thoracic, traumatic; Clinical Question(s): Fracture Dislocation, Fracture/Dislocation TECHNIQUE: Noncontrast CT of the thoracic spine was performed. Bone and soft tissue algorithms werereconstructed along with coronal and sagittal computations. Weight-based protocol using automatic tube modulation was used to optimize exposure parameters. RADIATION DOSE PARAMETERS: CTDIvol Body: 15.80 mGy, DLP Body: 805 mGy*cm. COMPARISON: CT abdomen pelvis without contrast 11/25/2020, chest radiograph 02/04/2019 FINDINGS: Spine: No fractures or bone lesion. Minimal superior endplate deformities as T2 and T4 are likely chronic and may related to Schmorl's nodes. The alignment is maintained. Degenerative changes are noted including disc height loss and disc bulging with findings more pronounced at L2-L3 with near complete disc height loss, vacuum disc formation and cystic formation of the opposing endplates. This is progressed from 12/02/2021. There is a prominent posterior disc osteophyte complex at this level with moderate central canal stenosis. Severe disc height loss and endplate irregularity at L4-L5 and L5-S1. Moderate- severe central canalstenosis at L4-L5 and mild canal stenosis at L5-S1. Mild central canal stenosis at L3-L4. Soft tissues: No acute abnormality in the paravertebral soft tissues. Partially visualized distended urinary bladder. Scattered sigmoid diverticula without diverticulitis. IMPRESSION: 1. No acute fracture or malalignment. 2. Degenerative changes of the thoracic and lumbar spine, most pronounced at L2- L3, L4-L5 and L5-S1as described. 3. Multilevel central canal stenosis of the lower lumbar spine. WSN: [id number] Ordering Physician: Matilda Barnes Dictated By: Jimenez Ramos MD Dictated Date/Time: 10/16/23 3:37 pm Reviewed By: Jimenez Ramos MD Signed By: Jimenez Ramos MD Signed Date/Time: 10/16/23 3:37 pm Transcribed By: FRANCESCA Transcribed Date/Time: 10/16/23 3:25 pm * Exam Date Time Procedure Performing Provider Status 10/16/23 2:[address] Cervical Spine W/O Contrast Martina Mendes; Valentino (Verified) Notes: (CT Cervical Spine W/O Contrast) Reason For Exam: Neck trauma, dangerous injury mechanism;Other: RESULT: CT Cervical Spine W/O Contrast CT Head/Brain W/O Contrast, CT Cervical Spine W/O Contrast INDICATION: Hx of Present Illness: fall back pain; Reason: Trauma; fx; Clinical Question(s): Other:; TECHNIQUE: Noncontrast head CT using axial technique was reconstructed in axial and coronal planes.Noncontrast spiral CT through the cervical spine was formatted in 3 planes. Automatic tube modulation was used for the cervical spine and iterative dose reconstruction was used for both the head and cervical spine to optimize scan parameters and image quality. CTDIvol Body: 9.20 mGy, DLP Body: 236 mGy*cm. CTDIvol Head: 41.70 mGy, DLP Head: 1344 mGy*cm. COMPARISON: CT head and cervical spine 10/09/2023. FINDINGS: Boom Truck Driver View Findings, Lines and Tubes: None. BRAIN AND EXTRA-AXIAL SPACES: No parenchymal hemorrhage, midline shift, or mass effect. Carpenter-white matter differentiation is wellpreserved. No acute infarct. Negative insular ribbon and hyperdense vessel signs. Ventricles, sulci, and basilar cisterns are normal. No white matter lesions. No subarachnoid hemorrhage. No subdural or epidural collection. CALVARIUM, SKULL BASE, AND SOFT TISSUES: No fractures or suspicious bony lesions. The paranasal sinuses and mastoid air cells are clear. Visualized orbits and globes are intact. The extracranial soft tissues are unremarkable. CERVICAL SPINE: No fracture. No acute osseous abnormalities. No traumatic malalignment. No locked or perched facet. Mild - moderate multilevel degenerative discspace narrowing and end plate irregularity. Multilevel facet arthropathy most pronounced at C3-C4 and C4-C5 on the left. OTHER BONES: No acute abnormality. CERVICAL SOFT TISSUES AND LUNG APICES: Normal soft tissues. Visualized lung apices are clear. Normal thyroid. IMPRESSION: No acute abnormality of the head or cervical spine. WSN: [id number] Ordering Physician: Matilda Barnes Dictated By: Jimenez Ramos MD Dictated Date/Time: 10/16/23 3:25 pm Reviewed By: Jimenez Ramos MD Signed By: Jimenez Ramos MD Signed Date/Time: 10/16/23 3:25 pm Transcribed By: FRANCESCA Transcribed Date/Time: 10/16/23 3:15 pm * Exam Date Time Procedure Performing Provider Status 10/16/23 2:[address] Head/Brain W/O Contrast Yohannes Mendes; Auth (Verified) Notes: (CT Head/Brain W/O Contrast) Reason For Exam: fx;Trauma RESULT: CT Head/Brain W/O Contrast CT Head/Brain W/O Contrast, CT Cervical Spine W/O Contrast INDICATION: Hx of Present Illness: fall back pain; Reason: Trauma; fx; Clinical Question(s): Other:; TECHNIQUE: Noncontrast head CT using axial technique was reconstructed in axial and coronal planes.Noncontrast spiral CT through the cervical spine was formatted in 3 planes. Automatic tube modulation was used for the cervical spine and iterative dose reconstruction was used for both the head and cervical spine to optimize scan parameters and image quality. CTDIvol Body: 9.20 mGy, DLP Body: 236 mGy*cm. CTDIvol Head: 41.70 mGy, DLP Head: 1344 mGy*cm. COMPARISON: CT head and cervical spine 10/09/2023. FINDINGS: Boom Truck Driver View Findings, Lines and Tubes: None. BRAIN AND EXTRA-AXIAL SPACES: No parenchymal hemorrhage, midline shift, or mass effect. Carpenter-white matter differentiation is wellpreserved. No acute infarct. Negative insular ribbon and hyperdense vessel signs. Ventricles, sulci, and basilar cisterns are normal. No white matter lesions. No subarachnoid hemorrhage. No subdural or epidural collection. CALVARIUM, SKULL BASE, AND SOFT TISSUES: No fractures or suspicious bony lesions. The paranasal sinuses and mastoid air cells are clear. Visualized orbits and globes are intact. The extracranial soft tissues are unremarkable. CERVICAL SPINE: No fracture. No acute osseous abnormalities. No traumatic malalignment. No locked or perched facet. Mild - moderate multilevel degenerative discspace narrowing and end plate irregularity. Multilevel facet arthropathy most pronounced at C3-C4 and C4-C5 on the left. OTHER BONES: No acute abnormality. CERVICAL SOFT TISSUES AND LUNG APICES: Normal soft tissues. Visualized lung apices are clear. Normal thyroid. IMPRESSION: No acute abnormality of the head or cervical spine. WSN: [id number] Ordering Physician: Matilda Barnes Dictated By: Jimenez Ramos MD Dictated Date/Time: 10/16/23 3:25 pm Reviewed By: Jimenez Ramos MD Signed By: Jimenez Ramos MD Signed Date/Time: 10/16/23 3:25 pm Transcribed By: FRANCESCA Transcribed Date/Time: 10/16/23 3:15 pm * Exam Date Time Procedure Performing Provider Status 10/16/23 12:53 PM Knee 3 Views Right Jacquelyn Mac; Valentino (Verified) Notes: (Knee 3 Views Right) Reason For Exam: Pain RESULT: Knee 3 Views Right Knee 3 Views Right INDICATION: Reason: Pain; Clinical Question(s): Fracture TECHNIQUE: AP and lateral views. Patellar view. COMPARISON: 01/07/2017 in 11/22/2016.. FINDINGS: There is no fracture. 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 . Medial compartment is normal. Mild osteoarthritis lateral compartment. Mild osteoarthritis patellofemoral compartment.. There is no chondrocalcinosis. There is no joint effusion. IMPRESSION: 1. No fracture.. 2. 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 3. Mild osteoarthritis lateral and patellofemoral compartments.. WSN: [id number] Ordering Physician: Matilda Barnes Dictated By: Toan Bhatia MD Dictated Date/Time: 10/16/23 1:07 pm Reviewed By: Toan Bhatia MD Signed By: Toan Bhatia MD Signed Date/Time: 10/16/23 1:07 pm Transcribed By: FRANCESCA Transcribed Date/Time: 10/16/23 1:05 pm Vital Signs Most recent to oldest [Reference Range]: 1 2 Height 160 cm (10/16/23 11:48 AM) Oxygen Saturation [94-100 %] 100 % (10/16/23 11:48 AM) Pulse Rate [55-90 bpm] 75 bpm (10/16/23 11:48 AM) Blood Pressure [90-138/55-84 mm Hg] 128/ 73mm Hg (10/16/23 11:48 AM) Respiratory Rate [16-30 br/min] 18 br/mi n (10/16/23 12:55 PM) 16 br/min (10/16/23 11:48 AM) Temperature [96.8-100.4 DegF] 98.0 DegF (10/16/23 11:48 AM) Mode of Delivery (Oxygen) Room air (10/16/23 11:48 AM) Blood pressure sites Arm, right (10/16/23 11:48 AM) Temperature Route Oral (10/16/23 11:48 AM) Dry Weight 53.8 kg (10/16/23 11:48 AM) Social History Social History Type Response Smoking Status Former smoker, quit more than 30 days ago; Other: Quit years ago; entered on: 09/22/23 Sex Patient Care team information Care Team Personnel Name: Diandra BULLOCK, Clari Feng Position: [facility] Physician - Primary Care Member Role: PCP Address: Address: [address] [place] [address] Name: Lorin Barnhart RN Position: S RN Member Role: Primary Care Nurse Name: Velia Biswas RN Position: S RN Member Role: Primary Care Nurse Name: Nusrat Cornejo RN Position: S RN Member Role: Primary Care Nurse Care Team Related Persons Name: DARRIN HARDY Address: home [address] Name: DARRIN SCOTT Address: [address] Name: MARIBEL CALLES Address: home [address] [place] [id number]
--- OUTSIDE RECORDS SUMMARY | 2023-12-01 15:07 | XMS_ITS | Continuity of Care Document ---
Author Organization [facility] Address [address] [place] [address] [address], [address] [place] [address]- Care Team Providers Care Sausage Maker Name Role Phone Diandra BULLOCK, Clari Feng Primary Care Physician Encounter [facility] [place] Date(s): 11/07/22 - 12/07/22 [facility] [address] [place] [address] Drive, [address] [place], [place] [address] Attending Physician: Jayro Thomas Admitting Physician: Jayro Thomas Referring Physician: Jayro Thomas Referring Physician: Sylvia Stout Allergies, Adverse Reactions, [...] to Pharmacy Electronically, [facility]/pharmacy #[id number], Partial fill upon patient request if the [...] Personnel Name: Diandra BULLOCK, Clari Feng Position: S Physician - Primary Care Member Role: PCP Address: Address: [address] [place] [address]- Name: Lorin Barnhart RN Position: S RN Member Role: Primary Care Nurse Name: Sunni Bernal RN Position: S RN Member Role: Primary Care Nurse Care Team Related Persons Name: DARRIN HARDY Address: home [address] Name: DARRIN SCOTT Address: [address] Name: MARIBEL CALLES Address: home [address] [place] [address]
--- OUTSIDE RECORDS SUMMARY | 2023-12-01 15:07 | XMS_ITS | Continuity of Care Document ---
Author Organization [facility] Address [address] [place] [id number]- Care Team Providers Care Wire Dropper Name Role Phone Diandra BULLOCK, Clari Feng Primary Care Physician ( [phone] Encounter [facility] [place] Date(s): 09/19/23 - 09/20/[address] [address]- Discharge Disposition: A-D/C Walkout Attending Physician: Not on Staff, Attending MD Admitting Physician: Not on Staff, Admitting MD Referring Physician: Not on Staff, Referring [...] 1 each, 3 Refills, Maintenance, 10/05/20 16:44:00EDT, [facility]/pharmacy #[id number], Partial fill upon patient request if the prescription is for a schedule IIopioid drug., 165, cm, 10/05/20 14:20:00 EDT, Jagdeep... Start Date: 10/05/20 Status: Ordered EC Naprosyn 500 mg oral enteric coated tablet 1 tablet = 500 mg, By Mouth, 2 times a day, PRN Pain , Moderate, # 20 tablet, 0 Refills, Maintenance, 03/18/23 21:59:00 EDT, EC Tablet, [facility]/pharmacy #[id number], Partial fill upon patient request if the prescription is for a schedule II opioid drug., 160, c... Start Date: 03/18/23 Status: Ordered gabapentin 400 mg oral capsule 400 mg, 1, capsule, By Mouth, 3 times a day, # 90 capsule, Refills 0, Tot. Refills 0, Maintenance, 11/02/21 8:05:00 EDT, [id number] Partial fill upon patient request if [...] 0 Refills, Maintenance, 01/24/23 14:29:00 EDT, Tablet, [facility]/pharmacy #[id number], Partial fill upon patient request if the prescription is for a schedule II opioid drug., 160, cm,... Start Date: 01/24/23 Stop Date: 01/25/23 Status: Ordered methylphenidate 20 mg oral tablet 1 tablet = 20 mg, By Mouth, 3 times a day, # 12 tablet, 0 Refills, Maintenance, 01/19/23 12:39:00 EDT, Tablet, [facility]/pharmacy #[id number], Partial fill upon patient [...] [Reference Range]: 1 2 Height 160 cm (09/19/23 3:01 PM) Weight 55 kg (09/19/23 3:01 PM) Oxygen Saturation [94-100 %] 100 % (09/19/23 5:44 PM) 100 % (09/19/23 3:01 PM) Pulse Rate [55-90 bpm] 77 bpm (09/19/23 5:44 PM) 77 bpm (09/19/23 3:01 PM) Body Mass Index [18.5-24.99 kg/m2] 21.48 kg/m2 (09/19/23 3:01 PM) Blood Pressure [90-138/55-84 mm Hg] 116/ 68mm Hg (09/19/23 5:44 PM) 116/59mm Hg (09/19/23 3:01 PM) Respiratory Rate [16-30 br/min] 18 br/mi n (09/19/23 5:44 PM) 18 br/min (09/19/23 3:01 PM) Temperature [96.8-100.4 DegF] 97.7 DegF (09/19/23 5:44 PM) 97.7 DegF (09/19/23 3:01 PM) Mode of Delivery (Oxygen) Room air (09/19/23 5:44 PM) Room air (09/19/23 3:01 PM) Blood pressure sites Arm, right (09/19/23 5:44 PM) Arm, left (09/19/23 3:01 PM) Temperature Route Oral (09/19/23 5:44 PM) Oral (09/19/23 3:01 PM) Dry Weight 55 kg (09/19/23 3:01 PM) Weight Obtained Via Patient/family state d (09/19/23 3:01 PM) Dry Weight Obtained Via Patient/family s tated (09/19/23 3:01 PM) Social History Social History Type Response Smoking Status Former smoker, quit more than 30 days ago entered on: 11/27/21 Sex Patient Care team information Care Team Personnel Name: Diandra BULLOCK, Clari Feng Position: S Physician - Primary Care Member Role: PCP Address: Address: [address] [place] [address]- Name: Bronwyn MON, Lorin Position: S RN Member Role: Primary Care Nurse Name: Nusrat Cornejo RN Position: S RN Member Role: Primary Care Nurse Care Team Related Persons Name: DARRIN HARDY Address: [address] Name: DARRIN SCOTT Address: [address] Name: MARIBEL CALLES Address: [address] [place] [address]
--- OUTSIDE RECORDS SUMMARY | 2023-12-01 15:07 | XMS_ITS | Continuity of Care Document ---
Author Organization [facility] Address [address] [place] [id number]- Care Team Providers Care Auto Body Repairer Name Role Phone Diandra BULLOCK, Clari Feng Primary Care Physician Encounter [facility] Date(s): 10/03/23 - 10/04/[address] [address]- Encounter Diagnosis Psychiatric problem(Final) - 10/04/23 Discharge Disposition: A-D/C Home Attending Physician: Darnell Branch MD Admitting Physician: Darnell Branch MD Referring Physician: Not on Staff, Referring MD Allergies, Adverse Reactions, Alerts Substance Reaction Severity Status ampicillin hives Active penicillin hives Active Latex hives Active Bananas Active Immunizations Given and Recorded Vaccine Date [...] 1 each, 3 Refills, Maintenance, 10/05/20 16:44:00EDT, [facility]/pharmacy #[id number], Partial fill upon patient request if the [...] 09/28/23 21:42:00 EDT, Route to Pharmacy Electronically, [id number], Partial fill upon patient request if t... Start Date: 09/28/23 Stop Date: 10/28/23 Status: Ordered FLUoxetine 40 mg oral capsule 1 capsule = 40 mg, By Mouth, Daily, Take with one 10mg capsule for a total 50mg., # 30 capsule, 0 Refills, Maintenance, 09/28/23 21:42:00 EDT, Capsule, [id number], Partial fill upon [...] 11/02/21 8:05:00 EDT, Route to Pharmacy Electronically, [id number], Partial fill upon patient request if the prescription is for a schedule II o... Start Date: 11/02/21 Status: Ordered gabapentin 400 mg oral capsule 400 mg, Capsule, By Mouth, 10/04/23 9:00:00 EDT Start Date: 10/04/23 Stop Date: 10/04/23 Status: Completed imipramine 50 mg oral tablet 1 tablet [...] tablet, 0 Refills, Maintenance, 09/28/23 21:41:00 EDT, [facility]/pharmacy #[id number], Partial fill upon patient request if the prescription is for a schedule II opioid drug., 160, cm, 09/28/23 19:04:00 EDT, Height,... Start Date: 09/28/23 Stop Date: 10/28/23 Status: Ordered OXcarbazepine 600 mg oral tablet [...] capsule, 0 Refills, Maintenance, 09/28/23 21:39:00EDT, Capsule, [facility]/pharmacy #[id number], Partial fill upon... Start Date: 09/28/23 [...] recent to oldest [Reference Range]: 1 2 3 Oxygen Saturation [94-100 %] 97 % (10/04/23 8:34 AM) 99 % (10/04/23 4:15 AM) 98 % (10/03/23 7:41 PM) Pulse Rate [55-90 bpm] 72 bpm (10/04/23 8:34 AM) 62 bpm (10/04/23 4:15 AM) 70 bpm (10/03/23 7:41 PM) Blood Pressure [90-138/55-84 mm Hg] 105/63mm Hg (10/04/23 8:34 AM) 96/51mm Hg (10/04/23 4:15 AM) 145/80mm Hg *H* (10/03/23 7:41 PM) Respiratory Rate [16-30 br/min] 16 br/min (10/04/23 9:07 AM) 18 br/min (10/04/23 8:34 AM) 21 br/min (10/04/23 4:15 AM) Temperature [96.8-100.4 DegF] 98 DegF (10/04/23 4:15 AM) 97.9 DegF (10/03/23 7:41 PM) 98.1 DegF (10/03/23 6:06 PM) Mode of Delivery (Oxygen) Room air (10/04/23 8:34 AM) Room air (10/04/23 4:15 AM) Room air (10/03/23 7:41 PM) Temperature Route Oral (10/03/23 7:41 PM) Oral (10/03/23 6:06 PM) Oral (10/03/23 2:20 PM) Social History Social History Type Response Smoking Status Former smoker, quit more than 30 days ago; Other: Quit years ago; entered on: 09/22/23 Sex EKG study * Event Display: EKG Authored Date: * Event Display: ECG 12-Lead Authored Date: Please click on pdf link to open report * Event Display: ECG 12-Lead Authored Date: Ventricular Rate: 63 BPM Atrial Rate: 63 BPM P-R Interval: 150 ms QRS Duration: 104 ms Q-T Interval: 474 ms QTC Calculation(Bazett): 485 ms P [place]: 52 degrees R [place]: 60 degrees T [place]: 61 degrees Normal sinus rhythm Nonspecific T wave abnormality Prolonged QT Abnormal ECG When compared with ECG of 23-SEP-2023 08:20, Nonspecific T wave abnormality now evident in Anterior leads Confirmed by Kyree Valdes ([id number]) on 10/03/2023 4:10:59 PM [place]: Kyree Valdes Consult note * Riya Orantes DO: PERFORM, MODIFY Event Display: Consultation Note Authored Date: Patient: ??LABROAD ORLANDO MOE ? Age:??68 Years?Sex:??Female?:??1955?? Extensive chart review was performed, and case discussed with treatment team.? In brief, this is a??68-year-old female with past psychiatric history significant for unspecified psychotic disorder, major neurocognitive disorder, and prior inpatient psychiatric hospitalizations for treatment of the same as well as medical history notable for epilepsy, narcolepsy, type 2 diabetes mellitus, congestive heart failure, rheumatoid arthritis, and chronic back pain, who initially presented to [facility] on 10/03/2023 for evaluation of a narcolepsy attack, seizure, jamal stroke with concerns for altered mental status and potential psychiatric decompensation.?? Of note, this patient was recently hospitalized on [facility] from 09/22/2023 - 09/29/2023 for management of aud itory hallucinations and paranoid delusions. At this point in time, the patient has been medically cleared and referred to [facility] for evaluation and assistance with disposition for??discharge/diversion to community??mental health care providers. The emergency psychiatry service was consulted for evaluation of medication management??prior??to this disposition??for outpatient level of care. ?? Based on chart review??and in discussion with the crisis team, there is no current suicidality, homicidality, or desires for self???injures behaviors. ??No objective evidence??concerning for acutepsychosis, dillon,??anxiety,??or depression necessitating an inpatient psychiatric hospitalization.?? Given that the patient was only recently discharged from??APTU??on a medication regimen??that was felt to stabilize her prior psychotic condition,??with the only exception being??decreasing the??methylphenidate??from 80 to 60 mg total daily dosing??(within FDA guidelines??and clinically indicated for this elderly patient),??it seems reasonable to continue??all psychotropic medications as per APTU discharge summary dated 09/29/2023.?? Any additional changes to her scheduled??psychotropic medications??can be??pursued??by her outpatient psychiatric provider through [facility].?? This radio script writer would NOT be recommending any further titration of her stimulant medication on an ED evaluation. Patient??was amenable??to this plan. ??In the interim, could continue??utilizing??trazodone 25 mg PO twice daily PRN anxiety/insomnia/mild agitation and additional Haldol 2.5-5 mg??PO/IV/IM Q6H PRN agitation/psychosis.??The preference is for PO medications, but if the patient refuses the oral medications and there is sufficient acute safety concern, can judiciously utilize IM equivalents for severe agitation. No additional changes were made to scheduled psychotropic medications at this time. Would note that these medications are only being utilized in the ER and/or medical floors while the patient awaits placement. Long-term need for these medications will need to be assessed by the patient's future treating psychiatrist. Disposition is ultimately deferred to [facility] services.?Please monitorECG for further QT prolongation if there is any additional medications??added on a scheduled basis??with further??potential for??QT prolongation. ?Vitals:?? No Vitals found for last 24 hours 10/04/2023 08:34?Respiratory Rate ?16 br/min?Active Problems(14) Bipolar Diabetes mellitus type II Epilepsy, Unspecified Gait disturbance Generalized pain History of CHF (congestive heart failure) Hx-TIA (transient ischemic attack) Hypokalemia Hypokalemia Narcolepsy Postmenopausal Bleeding Rheumatoid arthritis Schizoaffective disorder Weakness ?Medications (12) Active SCHEDULED: (12) Acetaminophen 325 mg Tablet (Acetaminophen Tablet) ??975 mg, By Mouth, Once Fluoxetine 10 mg Capsule (FLUoxetine 10 mg oral capsule) ??10 mg, By Mouth, Daily Fluoxetine 20 mg Capsule (FLUoxetine 20 mg oral capsule) ??40 mg, By Mouth, Daily Furosemide 40 mg Tablet (furosemide 40 mg oral tablet) ??40 mg, By Mouth, Daily Gabapentin 400 mg Capsule (gabapentin 400 mg oral capsule) ??400 mg, By Mouth, 3 times a day Keppra 500mg Tablet (Keppra 500 mg oral tablet) ??1,500 mg, By Mouth, 2 times a day Methylphenidate 10 mg Tablet (methylphenidate 10 mg oral tablet) ??20 mg, By Mouth, 3 times a day Oxcarbazepine 300 mg Tablet (OXcarbazepine 300 mg oral tablet) ??600 mg, By Mouth, 2 times a day PredniSONE 5 mg Tablet (predniSONE 5 mg oral tablet) ??5 mg, By Mouth, Once Topiramate 25 mg Tablet (Topiramate Tablet) ??50 mg, By Mouth, 2 times a day Ziprasidone 20 mg Capsule (ziprasidone 20 mg oral capsule) ??20 mg, By Mouth, Daily at supper Ziprasidone 60 mg Capsule (ziprasidone 60 mg oral capsule) ??60 mg, By Mouth, 2 times a day CONTINUOUS: (0) PRN: (0)? Hematology Event Name?? Event Result?? Date/Time?? WBC 6.5 k/mm3 10/03/23 16:01:00 RBC 3.81 m/mm3??Low 10/03/23 16:01:00 Hgb 12.4 Gm/dL 10/03/23 16:01:00 Hct 35.7 % 10/03/23 16:01:00 MCV 93.7 femtoliters 10/03/23 16:01:00 MCH 32.5 pg 10/03/23 16:01:00 MCHC 34.7 g/dL 10/03/23 16:01:00 Platelet Count 258 k/mm3 10/03/23 16:01:00 RDW-SD 41.3 femtoliters 10/03/23 16:01:00 MPV 8.9 femtoliters??Low 10/03/23 16:01:00 Nucleated RBC (Automated) 0 #/100 WBC'S 10/03/23 16:01:00 Abs. NRBC 0 k/mm3 10/03/23 16:01:00 Abs. Neut 4.6 k/mm3 10/03/23 16:01:00 Abs. Lymph 1.6 k/mm3 10/03/23 16:01:00 Abs. [place] 0.3 k/mm3??Low 10/03/23 16:01:00 Abs. Eo 0.1 k/mm3 10/03/23 16:01:00 Abs. Baso 0 k/mm3 10/03/23 16:01:00 Neut % 69.5 % 10/03/23 16:01:00 Lymph % 24.8 % 10/03/23 16:01:00 [place] % 3.8 %??Low 10/03/23 16:01:00 Eos % 1.1 % 10/03/23 16:01:00 Baso % 0.5 % 10/03/23 16:01:00 Imm Gran 0.3 % 10/03/23 16:01:00 Abs. Imm Gran 0 k/mm3 10/03/23 16:01:00 ? Chemistry Event Name?? Event Result?? Date/Time?? Sodium 142 mmol/L 10/03/23 16:01:00 Potassium 3.2 mmol/L??Low 10/03/23 16:01:00 Chloride 101 mmol/L 10/03/23 16:01:00 Bicarbonate Level 25 mmol/L 10/03/23 16:01:00 Anion Gap 16 10/03/23 16:01:00 Glucose Level 88 mg/dL 10/03/23 16:01:00 BUN 20 mg/dL 10/03/23 16:01:00 Creatinine-Blood 0.8 mg/dL 10/03/23 16:01:00 Estimated GFR Creatinine 80 ML/MIN/1.73 M2 10/03/23 16:01:00 Calcium 8.4 mg/dL??Low 10/03/23 16:01:00 Protein, Total 6.4 Gm/dL 10/03/23 16:01:00 Albumin 3.9 Gm/dL 10/03/23 16:01:00 AG Ratio 1.6 10/03/23 16:01:00 Alkaline Phosphatase 139 units/L??High 10/03/23 16:01:00 AST (SGOT) 27 units/L 10/03/23 16:01:00 ALT (SGPT) 20 units/L 10/03/23 16:01:00 Bilirubin, Total <0.2 10/03/23 16:01:00 TSH 0.41 uIU/mL 10/03/23 16:01:00 Ethanol, Serum or Plasma NONE DETECTED 10/03/23 16:01:00 Barbiturate Screen, Urine NONE DETECTED 10/03/23 20:11:00 Cannabinoid Screen, Urine NONE DETECTED 10/03/23 20:11:00 Cocaine Metabolite Screen, Urine NONE DETECTED 10/03/23 20:11:00 Benzodiazepine Screen, Urine NONE DETECTED 10/03/23 20:11:00 Amphetamine Screen, Urine NONE DETECTED 10/03/23 20:11:00 Opiate Screen, Urine NONE DETECTED 10/03/23 20:11:00 ? Microbiology Event Name?? Event Result?? Date/Time?? COVID-19 by RT-PCR NEGATIVE 10/03/23 17:30:00 ? Urine Stuudies Event Name?? Event Result?? Date/Time?? Appear/Color, Urine LIGHT YELLOW 10/03/23 20:11:00 Specific [place], Urine 1.019 10/03/23 20:11:00 pH, Urine 7 10/03/23 20:11:00 Albumin, Urine NEGATIVE 10/03/23 20:11:00 Glucose, Urine NEGATIVE 10/03/23 20:11:00 Ketones, Urine NEGATIVE 10/03/23 20:11:00 Bilirubin, Urine NEGATIVE 10/03/23 20:11:00 Hemoglobin, Urine NEGATIVE 10/03/23 20:11:00 Nitrite, Urine POSITIVE Abnormal 10/03/23 20:11:00 Leukocyte, Urine TRACE Abnormal 10/03/23 20:11:00 Urobilinogen NORMAL 10/03/23 20:11:00 WBC's, Urine 2 /HPF 10/03/23 20:11:00 RBC's, Urine 1 /HPF 10/03/23 20:11:00 Bacteria HEAVY Abnormal 10/03/23 20:11:00 Squamous Epith 4 /HPF 10/03/23 20:11:00 Hyaline Cast 1 LPF 10/03/23 20:11:00 Mucus SLIGHT 10/03/23 20:11:00 Hold Urine Culture Testing available 48 hours from time of collection. 10/03/23 20:11:00 ?ECG 12-Lead ?? 15:54:12 Please click on pdf link to open report ?? Signed By: Lucio BULLOCK, Kyree Jackson ?? ECG 12-Lead ?? 15:54:12 Ventricular Rate: 63 BPM Atrial Rate: 63 BPM P-R Interval: 150 ms QRS Duration: 104 ms Q-T Interval: 474 ms QTC Calculation(Bazett): 485 ms P [place]: 52 degrees R [place]: 60 degrees T [place]: 61 degrees Normal sinus rhythm Nonspecific T wave abnormality Prolonged QT Abnormal ECG When compared with ECG of 23-SEP-2023 08:20, Nonspecific T wave abnormality now evident in Anterior leads Confirmed by Kyree Valdes ([id number]) on 10/03/2023 4:10:59 PM ?? [place]: Kyree Valdes ?? Signed By: Kyree Valdes MD? Assessment:?? Unspecified psychotic disorder Major neurocognitive disorder by history Paranoid delusion Epilepsy Narcolepsy by history History of CHF ? 25 minutes time spent on this consult included review of the patient's medical records, lab and/or imaging studies, medication profiles, writing chart notes, communicating with healthcare professionals, with 15 minutes of the service devoted to medical consultative discussion with the treating/requesting provider, Dr. Darnell Branch and ED crisis clinical team. ?? Riya Orantes D.O.?? Personalization Specialist, Emergency Psychiatry Services Division of Consultation-Liaison Psychiatry Department of Psychiatry [facility]?? Patient Care team information Care Team Personnel Name: Diandra BULLOCK, Clari Feng Position: [facility] Physician - Primary Care Member Role: PCP Address: Address: [address] [place] [address] Name: Lorin Barnhart RN Position: S RN Member Role: Primary Care Nurse Name: Velia Biswas RN Position: S RN Member Role: Primary Care Nurse Name: Nusrat Cornejo RN Position: S RN Member Role: Primary Care Nurse Care Team Related Persons Name: DARRIN HARDY Address: [place] [address] Name: DARRIN SCOTT Address: [address] Name: MARIBEL CALLES Address: home [address] [place] [id number]
--- OUTSIDE RECORDS SUMMARY | 2023-12-01 15:07 | XMS_ITS | Continuity of Care Document ---
Author Organization [facility] ter Address [address] [place] [id number]- Care Team Providers Care Instrument Engineer Name Role Phone Clari Jim MD Primary Care Physician Encounter [facility] Date(s): 10/24/23 - 10/25/[address] [address]- Discharge Disposition: Transfer to [facility] Facility Attending Physician: Clari Herzog MD Admitting Physician: Clari Herzog MD Referring Physician: Not on Staff, Referring MD Allergies, Adverse Reactions, Alerts Substance Reaction Severity Status ampicillin hives Active penicillin hives Active potassium chloride Severe Active Latex hives Active Bananas Active Immunizations [...] each, 3 Refills, Maintenance, 10/05/20 16:44:00EDT, [facility]/pharmacy #[id number], Partial fill upon patient [...] oral capsule 400 mg, Capsule, By Mouth, 10/25/23 21:00:00 EDT Start Date: 10/25/23 Stop Date: 10/25/23 Status: Completed imipramine 50 mg oral tablet [...] tablet, 0 Refills, Maintenance, 10/08/23 12:57:00 EDT, [id number], Partial fill upon patient request if the prescription is for a schedule II opioid drug., 160, cm, 10/08/23 7:45:00 EDT, H... Start Date: 10/08/23 Status: Ordered methylphenidate 20 mg oral tablet 1 tablet = 20 mg, By Mouth, 3 times a day, # 90 tablet, 0 Refills, Maintenance, 09/28/23 21:41:00 EDT, [facility]/pharmacy #[id number], Partial fill upon patient [...] Exam Date Time Procedure Performing Provider Status 10/24/23 10:[address] Cervical Spine W/O Contrast Stupak , Aaron; Auth (Verified) Notes: (CT Cervical Spine W/O Contrast) Reason For Exam: Neck trauma, dangerous injury mechanism;Other: RESULT: CT Cervical Spine W/O Contrast CT Head/Brain W/O Contrast, CT Cervical Spine W/O Contrast Hx of Present Illness[place]. Per pt hx of epilepsy. States she has a 20second seizure on the bus and then walked off and called 911. Also states she has a headache and dizziness. No signs of trauma; Reason: Trauma; Clinical Question(s): Other:; Hemorrhage COMPARISON: None. TECHNIQUE: Incremental CT without contrast through the head was formatted in axial and coronal plane. Spiral CT without contrast through the cervical spine was formatted in 3 planes. Automatic tube modulation was used for the cervical spine and iterative dose reconstruction was used for both the head and cervical spine to optimize scan parameters and image quality. CTDIvol Body: 9.30 mGy, DLP Body: 245 mGy*cm. CTDIvol Head: 39.70 mGy, DLP Head: 672 mGy*cm. FINDINGS: Partner View Findings, Lines and Tubes: None. CT of HEAD: BRAIN: No parenchymal hemorrhage, midline shift, or mass effect. Carpenter-white matter differentiation is well preserved. No acute infarct. Mild low-density white matter changes. VENTRICLES: Ventricles, sulci, and basilar cisterns are normal. EXTRA-AXIAL SPACES: No subarachnoid hemorrhage. No subdural or epidural collection. SKULL/SOFT TISSUES: No fractures or suspicious bony lesions. The extracranial soft tissues are unremarkable. SINUSES: The paranasal sinuses and mastoid air cells are clear. ORBITS: Visualized orbits and globes are intact. CT of CERVICAL SPINE: CERVICAL SPINE: No fracture or acute malalignment. The alignment is maintained. Degenerative changes are noted including disc height loss, anterior osteophytes and posterior disc osteophyte complexes. OTHER BONES: Normal. CERVICAL SOFT TISSUES:Unremarkable. LUNG APICES: Clear lung apices. IMPRESSION: No acute abnormality of the head or cervical spine. WSN: [id number] Ordering Physician: Donta Bliss Dictated By: Jax Guadalupe MD Dictated Date/Time: 10/24/23 10:34 p Reviewed By: Jax Guadalupe MD Signed By: Jax Guadalupe MD Signed Date/Time: 10/24/23 10:34 pm Transcribed By: FRANCESCA Transcribed Date/Time: 10/24/23 10:31 pm * Exam Date Time Procedure Performing Provider Status 10/24/23 10:[address] Head/Brain W/O Contrast Stupak , O leg; Auth (Verified) Notes: (CT Head/Brain W/O Contrast) Reason For Exam: Trauma RESULT: CT Head/Brain W/O Contrast CT Head/Brain W/O Contrast, CT Cervical Spine W/O Contrast Hx of Present Illness: [place]. Per pt hx of epilepsy. States she has a 20second seizure on the bus and then walked off and called 911. Also states she has a headache and dizziness. No signs of trauma; Reason: Trauma; Clinical Question(s): Other:; Hemorrhage COMPARISON: None. TECHNIQUE: Incremental CT without contrast through the head was formatted in axial and coronal plane. Spiral CT without contrast through the cervical spine was formatted in 3 planes. Automatic tube modulation was used for the cervical spine and iterative dose reconstruction was used for both the head and cervical spine to optimize scan parameters and image quality. CTDIvol Body: 9.30 mGy, DLP Body: 245 mGy*cm. CTDIvol Head: 39.70 mGy, DLP Head: 672 mGy*cm. FINDINGS: Partner View Findings, Lines and Tubes: None. CT of HEAD: BRAIN: No parenchymal hemorrhage, midline shift, or mass effect. Carpenter-white matter differentiation is well preserved. No acute infarct. Mild low-density white matter changes. VENTRICLES: Ventricles, sulci, and basilar cisterns are normal. EXTRA-AXIAL SPACES: No subarachnoid hemorrhage. No subdural or epidural collection. SKULL/SOFT TISSUES: No fractures or suspicious bony lesions. The extracranial soft tissues are unremarkable. SINUSES: The paranasal sinuses and mastoid air cells are clear. ORBITS: Visualized orbits and globes are intact. CT of CERVICAL SPINE: CERVICAL SPINE: No fracture or acute malalignment. The alignment is maintained. Degenerative changes are noted including disc height loss, anterior osteophytes and posterior disc osteophyte complexes. OTHER BONES: Normal. CERVICAL SOFT TISSUES:Unremarkable. LUNG APICES: Clear lung apices. IMPRESSION: No acute abnormality of the head or cervical spine. WSN: [id number] Ordering Physician: Donta Bliss Dictated By: Jax Guadalupe MD Dictated Date/Time: 10/24/23 10:34 p Reviewed By: Jax Guadalupe MD Signed By: Jax Guadalupe MD Signed Date/Time: 10/24/23 10:34 pm Transcribed By: FRANCESCA Transcribed Date/Time: 10/24/23 10:31 pm Vital Signs Most recent to oldest [Reference Range]: 1 2 3 Oxygen Saturation [94-100 %] 99 % (10/25/23 9:05 PM) 99 % (10/25/23 7:37 PM) 98 % (10/25/23 6:08 PM) Pulse Rate [55-90 bpm] 65 bpm (10/25/23 9:05 PM) 64 bpm (10/25/23 7:37 PM) 63 bpm (10/25/23 6:08 PM) Blood Pressure [90-138/55-84 mm Hg] 110/64mm Hg (10/25/23 9:05 PM) 105/55mm Hg (10/25/23 7:37 PM) 124/61mm Hg (10/25/23 6:08 PM) Respiratory Rate [16-30 br/min] 20 br/min (10/25/23 9:05 PM) 20 br/min (10/25/23 8:07 PM) 18 br/min (10/25/23 7:37 PM) Temperature [96.8-100.4 DegF] 98.6 DegF (10/25/23 9:05 PM) 98.7 DegF (10/25/23 7:37 PM) 98.3 DegF (10/25/23 8:50 AM) Mode of Delivery (Oxygen) Room air (10/25/23 9:05 PM) Room air (10/25/23 7:37 PM) Room air (10/25/23 6:08 PM) Blood pressure sites Arm, right (10/25/23 9:05 PM) Arm, right (10/25/23 7:37 PM) Arm, right (10/25/23 8:50 AM) Temperature Route Oral (10/25/23 9:05 PM) Oral (10/25/23 7:37 PM) Oral (10/25/23 8:50 AM) Social History Social History Type Response Smoking Status Former smoker, quit more than 30 days ago; Other: Quit years ago; entered on: 09/22/23 Sex Hospital Progress note * Event Display: Progress Note Hospital Authored Date: Patient Care team information Care Team Personnel Name: Clari Jim MD Position: [facility] Physician - Primary Care Member Role: PCP Address: Address: [address] [place] [id number]- Name: Lorin Barnhart RN Position: S RN Member Role: Primary Care Nurse Name: Velia Biswas RN Position: S RN Member Role: Primary Care Nurse Name: Chantal MON, Nusrat Position: S RN Member Role: Primary Care Nurse Care Team Related Persons Name: DARRIN HARDY Address: [place] [address] [address] Name: DARRIN SCOTT Address: [place] [address] [address] Name: MARIBEL CALLES Address: [address] [address]
--- OUTSIDE RECORDS SUMMARY | 2023-12-01 15:07 | XMS_ITS | Continuity of Care Document ---
Author Organization [facility] Address [address] [place] [address] [address], [address] [place] [address]- Care Team Providers Care Belt Turner Name Role Phone Diandra BULLOCK, Clari Feng Primary Care Physician Encounter [facility] Date(s): 08/02/23 - 09/01/23 [facility] [address] [place] [address] Drive, [address] [place], [place] [address] Attending Physician: Jayro Thomas Admitting Physician: Jayro [...] 1 each, 3 Refills, Maintenance, 10/05/20 16:44:00EDT, [facility]/pharmacy #[id number], Partial fill upon patient request if the prescription is for a schedule IIopioid drug., 165, cm, 10/05/20 14:20:00 EDT, Jagdepe... Start Date: 10/05/20 Status: Ordered EC Naprosyn 500 mg oral enteric coated tablet 1 tablet = 500 mg, By Mouth, 2 times a day, PRN Pain , Moderate, # 20 tablet, 0 Refills, Maintenance, 03/18/23 21:59:00 EDT, EC Tablet, [facility]/pharmacy #[id number], Partial fill upon patient request if the prescription is for a schedule II opioid drug., 160, c... Start Date: 03/18/23 Status: Ordered gabapentin 400 mg oral capsule 400 mg, 1, capsule, By Mouth, 3 times a day, # 90 capsule, Refills 0, Tot. Refills 0, Maintenance, 11/02/21 8:05:00 EDT, [id number] Partial fill upon patient request if [...] 0 Refills, Maintenance, 01/24/23 14:29:00 EDT, Tablet, [facility]/pharmacy #[id number], Partial fill upon patient request if the prescription is for a schedule II opioid drug., 160, cm,... Start Date: 01/24/23 Stop Date: 01/25/23 Status: Ordered methylphenidate 20 mg oral tablet 1 tablet = 20 mg, By Mouth, 3 times a day, # 12 tablet, 0 Refills, Maintenance, 01/19/23 12:39:00 EDT, Tablet, [facility]/pharmacy #[id number], Partial fill upon patient request [...] Clari Feng Position: [facility] Physician - Primary Care Member Role: PCP Address: Address: [address] [place] [address]- Name: Lorin Barnhart RN Position: S RN Member Role: Primary Care Nurse Name: Nusrat Cornejo RN Position: S RN Member Role: Primary Care Nurse Care Team Related Persons Name: DARRIN HARDY Address: [address] [address] Name: DARRIN SCOTT Address: [address] [address] Name: MARIBEL CALLES Address: home [address] [place] [address]
--- OUTSIDE RECORDS SUMMARY | 2023-12-01 15:07 | XMS_ITS | Continuity of Care Document ---
Author Organization [facility] Address [address] [place] [address] [address], [address] [place] [address]- Care Team Providers Care Assisted Living Executive Director Name Role Phone Diandra BULLOCK, Clari Feng Primary Care Physician Encounter [facility] Date(s): 08/03/23 - 09/02/23 [facility] [address] [place] [address] Drive, [address] [place], [place] [address] Allergies, Adverse Reactions, Alerts Substance Reaction [...] 11/02/21 8:05:00 EDT, [id number] Partial fill upon patient request if [...] Refills, Maintenance, 01/24/23 14:29:00 EDT, Tablet, [facility]/pharmacy #[id number], Partial fill upon patient request if the prescription is for a schedule II opioid drug., 160, cm,... Start Date: 01/24/23 Stop Date: 01/25/23 Status: Ordered methylphenidate 20 mg oral tablet 1 tablet = 20 mg, By Mouth, 3 times a day, # 12 tablet, 0 Refills, Maintenance, 01/19/23 12:39:00 EDT, Tablet, [facility]/pharmacy #[id number], Partial fill upon patient request [...] Personnel Name: Diandra BULLOCK, Clari Feng Position: [facility] Physician - Primary Care Member Role: PCP Address: Address: [address] [place] [address]- Name: Bronwyn MON, Lorin Position: S RN Member Role: Primary Care Nurse Name: Nusrat Cornejo RN Position: S RN Member Role: Primary Care Nurse Care Team Related Persons Name: DARRIN HARDY Address: [address] Name: DARRIN SCOTT Address: [address] Name: MARIBEL CALLES Address: home [address] [place] [address]
--- OUTSIDE RECORDS SUMMARY | 2023-12-01 15:08 | XMS_ITS | Continuity of Care Document ---
Author Organization [facility] Address [address] [facility], [address] d Floor, [address] [place] [address]- Care Team Providers Care Coin Machine Collector Supervisor Name Role Phone Diandra BULLOCK, Clari Feng Primary Care Physician Encounter [facility] Date(s): 01/30/23 - 03/01/23 [facility] [address] [facility], 3rd Floor, [address] [place] [address]- Allergies, Adverse Reactions, Alerts Substance Reaction Severity [...] 1 each, 3 Refills, Maintenance, 10/05/20 16:44:00EDT, [facility]/pharmacy #[id number], Partial fill upon patient request if the prescription is for a schedule IIopioid drug., 165, cm, 10/05/20 14:20:00 EDT, Heigh... Start Date: 10/05/20 Status: Ordered gabapentin 400 mg oral capsule [...] 0 Refills, Maintenance, 01/24/23 14:29:00 EDT, Tablet, [facility]/pharmacy #[id number], Partial fill upon patient request if the prescription is for a schedule II opioid drug., 160, cm,... Start Date: 01/24/23 Stop Date: 01/25/23 Status: Ordered methylphenidate 20 mg oral tablet 1 tablet = 20 mg, By Mouth, 3 times a day, # 12 tablet, 0 Refills, Maintenance, 01/19/23 12:39:00 EDT, Tablet, [facility]/pharmacy #[id number], [...] 10:15:40 EDT Start Date: 03/21/19 Status: Ordered Topiramate = 100 mg, By Mouth, 2 times a day, 0 Refills, Maintenance, 09/04/22 10:26:00 EDT, Partial fill uponpatient request if the [...] arthritis Confirmed Active Schizoaffective disorder Confirmed Active Underweight Confirmed Active Social History Social History Type Response Smoking Status Former smoker, quit more than 30 days ago entered on: 11/27/21 Sex Patient Care team information Care Team Personnel Name: Diandra BULLOCK, Clari Feng Position: [facility] Physician - Primary Care Member Role: PCP Address: Address: [address] [place] [address]- Name: Lorin Barnhart RN Position: S RN Member Role: Primary Care Nurse Name: Lucia Talbot RN Position: S RN Member Role: Primary Care Nurse Name: Sunni Bernal RN Position: S RN Member Role: Primary Care Nurse Name: Nusrat Cornejo RN Position: S RN Member Role: Primary Care Nurse Care Team Related Persons Name: DARRIN HARDY Address: [address] [address] Name: DARRIN SCOTT Address: home [address] [address] Name: MARIBEL CALLES Address: [place] [address]
== END 2023-12-01 15:12 | disposition left against medical advice (07) ==
LOC: HO.ED 15:06
PROVIDERS: Emergency Provider Emergency Medicine
DX: M54.50 Low back pain, unspecified (principal); R26.2 Difficulty in walking, not elsewhere classified; Z91.81 History of falling; Z79.899 Other long term (current) drug therapy
CPT/HCPCS: 36415; 80053; 85025; 99281; 99283

== ENCOUNTER 2024-02-13 10:21 | Emergency (ER) | payer MEDICARE, MEDICAID, SELFPAY ==
[2024-02-13 10:34] VITALS: BP 145/70; PULSE 84; RESP 16; TEMP 37; O2SAT 98; BMI 22.0
[2024-02-13 11:49] LABS: MANUAL DIFF FLAG NO
[2024-02-13 11:54] LABS: Basophils Percent Auto 0.5 % (0-2); Eosinophils Percent Auto 0.5 % (0-4); Hematocrit 33.1 % (37.0-47.0); Hemoglobin 11.2 g/dl (12.0-16.0); Imm Gran Abs Auto 0.03 X10*3/uL (0.00-0.03); Imm Gran Pct Auto 0.5 % (0.0-0.4); Lymphocytes Absolute Auto 0.8 X10*3/uL (1.2-4.9); Lymphocytes Percent Auto 13.2 % (20-40); Mean Corpuscular HGB Conc 33.8 g/dl (31.0-35.0); Mean Corpuscular Volume 94.6 fL (80.0-98.0); Mean Platelet Volume 8.4 fL (9.4-12.3); Monocytes Absolute Auto 0.3 X10*3/uL (0.1-1.2); Monocytes Percent Auto 5.3 % (2-11); Neutrophils Absolute Auto 4.7 x10*3/uL (2.0-8.3); Platelet Count 220 X10*3/uL (160-400); Red Cell Distribution Width 12.3 % (11.0-16.0); White Blood Count 5.8 X10*3/uL (4.8-10.8)
[2024-02-13 12:12] LABS: Alanine Aminotransferase 26 U/L (0-31); Albumin Level 3.5 g/dL (3.5-5.0); Alkaline Phosphatase 189 U/L (39-117); Anion Gap 12 (12-20); Aspartate Amino Transferase 27 U/L (5-31); Bilirubin Total 0.2 mg/dL (0.0-1.0); Blood Urea Nitrogen 13 mg/dL (9-16); Calcium 8.5 mg/dL (8.4-10.2); Carbon Dioxide 28 mmol/L (22-29); Chloride 104 mmol/L (96-108); Creatinine Clr Calc Pharmacy 70.6; Estimated Glomerular Filt Rate > 60; Glucose Random 103 mg/dL (60-115); Magnesium 2.1 mg/dL (1.6-2.6); Sodium 140 mmol/L (135-145); Total Protein 5.6 g/dL (6.5-8.0)
[2024-02-13 12:27] LABS: TSH reflex Free T4 0.61 uIU/mL (0.32-4.0)
--- NOTE | 2024-02-13 12:27 | ED_ITS ---
HPI - General Adult General Chief complaint: General Medical Stated complaint: Med refill Time Seen by Provider: 02/13/24 12:31 Source: patient Mode of arrival: ambulatory Limitations: no limitations History of Present Illness ED Provider: PATRIA VÁSQUEZ PA-C HPI narrative: 69 year old female with pmhx significant for ADHD, narcolepsy, restless leg syndrome, and hypothyroid presents to the ED today requesting medication refill. Patient reports taking Ritalin for ADHD/ narcolepsy. She has been out of her prescription for approximately 3 days and states she is unable to get this filled as her PCP is currently out of town. When asked if she has contacted the office for a refill she does not answer me. She also adds that she has been out of her levothyroxine for approximately 1 month. No physical concerns/ complaints at present. Related Data Home Medications ?Medication ?Instructions ?Recorded ?Confirmed celecoxib 200 mg capsule 200 mg PO BID 11/09/22 11/09/22 erenumab-aooe 140 mg/mL 140 mg subcut Q4W 11/09/22 11/09/22 subcutaneous auto-injector (Aimovig Autoinjector) fluoxetine 10 mg capsule 10 mg PO QAM 11/09/22 11/09/22 fluoxetine 40 mg capsule 40 mg PO QAM 11/09/22 11/09/22 furosemide 40 mg tablet 40 mg PO BID 11/09/22 11/09/22 gabapentin 300 mg capsule 300 mg PO BID 11/09/22 11/09/22 methylphenidate HCl 20 mg tablet 20 mg PO TID 11/09/22 11/09/22 prednisone 5 mg tablet 5 mg PO DAILY 11/09/22 11/09/22 topiramate 100 mg tablet 100 mg PO BID 11/09/22 11/09/22 ziprasidone HCl 60 mg capsule 60 mg PO BID 11/09/22 11/09/22 Previous Rx's ?Medication ?Instructions ?Recorded levothyroxine 25 mcg capsule 25 mcg PO DAILY 30 days #30 caps 02/13/24 Allergies Allergy/AdvReac Type Severity Reaction Status Date / Time latex [Latex] Allergy Intermediate SWELLING Verified 02/13/24 10:36 ampicillin [Ampicillin] Allergy Mild ITCHING Verified 02/13/24 10:36 potassium chloride Allergy Mild ITCHING Verified 02/13/24 10:36 [Potassium Chloride] Review of Systems 2 Review of Systems: Constitutional: No fever, chills, fatigue, night sweats, weight changes ENT/Mouth: No ear pain, hearing loss, nasal congestion, sinus pain, rhinorrhea, sore throat Eyes: No eye pain, swelling, redness, vision changes, discharge Cardio: No chest pain, palpitations, CERRATO, orthopnea, peripheral edema Pulm: No SOB, cough, sputum, wheezing, dyspnea, hemoptysis GI: No nausea, vomiting, hematemesis, abdominal pain, diarrhea, constipation, hematochezia, melena : No irregular bleeding, dysuria, frequency, urgency, hesitancy, hematuria, flank pain, urinary flow changes, urinary incontinence or retention MSK: No back pain, neck pain, joint pain, myalgias Skin: No lesions, rashes Neuro: No weakness, numbness, paresthesias, LOC, dizziness, headache Psych: No anxiety/panic, depression, SI/HI, AH/VH All other systems reviewed and are negative. [facility] Past Medical History Attestation statement: The following information was validated with the patient. Source: old records reviewed and nursing notes reviewed Social History Social History Alcohol intake: unknown Advance Directives: No Advance Directives Information Provided: No Physical Exam ED Vital Signs: Vital Signs - 24 hr 02/13/24 10:34 02/13/24 13:49 Temperature 98.6 F 97.2 F Pulse Rate 84 70 Respiratory Rate 16 20 Blood Pressure 145/70 H 146/78 H Pulse Oximetry 98 96 Oxygen Delivery Method Room Air Room Air BMI result Body Mass Index 22.0 Patient slightly hypertensive, vitals otherwise wnl General: Well appearing, in no acute distress. Skin: Warm, dry, intact. No rashes or lesions. Head: Normocephalic, atraumatic. EENT: Hearing is intact b/l. Conjunctiva clear. Sclera is anicteric. PERRLA. EOMs intact. Moist mucous membranes.? Neck: Supple without LAD. FROM. Trachea midline.? Cardiac: Chest wall symmetric. RRR. No MRG. No JVD. Lungs: Normal respiratory effort without accessory muscle use. CTA bilaterally. Abdomen: Soft, non-tender, non-distended. No rebound tenderness or guarding. Positive BS x4. Back: No midline spinous or paraspinal tenderness. No step off deformity. Ext: Upper and lower extremities atraumatic, without tenderness, deformity, swelling or erythema. Full ROM throughout. Pulses 2+ equal and bilateral. Neuro: AOx3. Normal speech. CN 2-12 grossly intact. Strength 5/5 intact throughout. Sensation intact to light touch. NV intact distally. Reflexes 2+ bilaterally. Ambulating with steady gait. Psych: Appropriate mood and affect. Responds appropriately to questions. Course Course Course Narrative: 1338 --CBC without leukocytosis. Normocytic anemia, stable when compared to priors. Chemistry without acute electrolyte abnormality requiring intervention. No MASHA. Elevated alk phos consistent with baseline. TSH WNL however free T4 decreased at 0.65. > According to MUD CAR WORKER, patient was prescribed 30 day supply of ritalin on 01/12/24. she was then evaluated at a suboxone clinic on 02/06/24 (7 days ago) and was prescribed a 5 day supply of ritalin which she is now out of. She tells me her prescriber is currently out of town. [facility]. Script for levothyroxine sent to pharmacy for hypothyroid management. Advised to follow up with PCP for further refills. > Patient has remained stable throughout ED visit today. Discussed worrisome signs and symptoms and when to return to the ED. All questions answered at this time. Patient is agreeable with disposition and stable for discharge. Medical Decision Making Medical Decision Making [facility] Narrative: 69 year old female with pmhx significant for ADHD, narcolepsy, restless leg syndrome, and hypothyroid presents to the ED today requesting medication refill. Patient slightly hypertensive to 145/70, vitals otherwise wnl. she is nontoxic appearing and in nad. rrr. lungs are clear. exam nonfocal. ambulating with steady gait. Plan for basic labs, disposition. Differential Diagnosis Differential Diagnoses: The differential diagnosis associated with the presentation includes as above. Admission/Observation Not indicated. Lab Data [facility] Lab Attestation statement: I reviewed the patient's lab results. as above. 02/13/24 11:45 02/13/24 11:45 Labs: Lab Results 02/13/24 Range/Units 11:45 WBC 5.8 (4.8-10.8) X10*3/uL RBC 3.50 L (4.20-5.50) X10*6/uL Hgb 11.2 L (12.0-16.0) g/dl Hct 33.1 L (37.0-47.0) % MCV 94.6 (80.0-98.0) fL MCH 32.0 (27.0-33.0) pg MCHC 33.8 (31.0-35.0) g/dl RDW 12.3 (11.0-16.0) % Plt Count 220 D (160-400) X10*3/uL MPV 8.4 L (9.4-12.3) fL Immature Gran % (Auto) 0.5 H (0.0-0.4) % Neut % (Auto) 80.0 H (45-73) % Lymph % (Auto) 13.2 L (20-40) % [place] % (Auto) 5.3 (2-11) % Eos % (Auto) 0.5 (0-4) % Baso % (Auto) 0.5 (0-2) % Lymph # (Auto) 0.8 L (1.2-4.9) X10*3/uL [place] # (Auto) 0.3 (0.1-1.2) X10*3/uL Eos # (Auto) 0.0 (0.0-0.4) X10*3/uL Baso # (Auto) 0.0 (0.0-0.2) X10*3/uL Abs Immat Gran (auto) 0.03 (0.00-0.03) X10*3/uL Absolute Neuts (auto) 4.7 (2.0-8.3) x10*3/uL Absolute Nucleated RBC 0.000 (0.0-0.012) X10*3/uL Nucleated RBC % (auto) 0.0 (0.0-0.2) /100WBC Sodium 140 (135-145) mmol/L Potassium 4.0 (3.3-5.1) mmol/L Chloride 104 (96-108) mmol/L Carbon Dioxide 28 (22-29) mmol/L Anion Gap 12 (12-20) BUN 13 (9-16) mg/dL Creatinine 0.64 (0.5-1.4) mg/dL Estim Creat Clear Calc 70.6 Estimated GFR > 60 Random Glucose 103 (60-115) mg/dL Calcium 8.5 (8.4-10.2) mg/dL Magnesium 2.1 (1.6-2.6) mg/dL Total Bilirubin 0.2 (0.0-1.0) mg/dL AST 27 (5-31) U/L ALT 26 (0-31) U/L Alkaline Phosphatase 189 H (39-117) U/L Total Protein 5.6 L (6.5-8.0) g/dL Albumin 3.5 (3.5-5.0) g/dL TSH 0.61 (0.32-4.0) uIU/mL Free T4 0.65 L (0.71-1.85) ng/dL External Record Review External record reviewed: Inpatient record Prescription Management I considered prescription management with: Other (levothyroxine) Social Determinants Patient?s care significantly limited by Social Determinants of Health including: Other Social Determinant of Health Critical Care Time Critical Care Time Critical Care Time: No Discharge Plan Discharge Clinical Impression: Encounter for medication refill Patient Disposition: Home, Self-Care Instructions: Hypothyroidism (ED), Medicine Refill (ED) Additional Instructions: You were seen in the ED today for medication refill. We are unable to refill your ritalin prescription from the ED. Follow up with your PCP for further refills. You may also follow up with the [facility] care center for a refill. You have been provided with their information. Call them to schedule an appointment. A refill of her levothyroxine has been sent to your pharmacy. This is only a 30 day supply. You will need to follow up with your PCP for further refills. Return with new or worsening symptoms. In the case of an emergency call 911. Prescriptions: New levothyroxine 25 mcg capsule 25 mcg PO DAILY 30 Days Qty: 30 0RF No Action fluoxetine 40 mg capsule 40 mg PO QAM prednisone 5 mg tablet 5 mg PO DAILY fluoxetine 10 mg capsule 10 mg PO QAM methylphenidate HCl 20 mg tablet 20 mg PO TID gabapentin 300 mg capsule 300 mg PO BID ziprasidone HCl 60 mg capsule 60 mg PO BID Aimovig Autoinjector 140 mg/mL auto-injector 140 mg subcut Q4W celecoxib 200 mg capsule 200 mg PO BID furosemide 40 mg tablet 40 mg PO BID topiramate 100 mg tablet 100 mg PO BID Referrals: [facility] [Provider Group] Clari Jim MD [Primary Care Provider] - Interventions: ED Discharge Assessment Last Done: 02/13/24 13:49 Discharge Date/Time: 02/13/24 13:49 Print Language: Martiniquais
[2024-02-13 13:28] LABS: Free T4 (Free Thyroxine) 0.65 ng/dL (0.71-1.85)
[2024-02-13 13:49] VITALS: BP 146/78; PULSE 70; RESP 20; TEMP 36.2; O2SAT 96
--- OUTSIDE RECORDS SUMMARY | 2024-02-14 08:13 | XMS_ITS | Continuity of Care Document ---
Author Organization [facility] Address [address] [place] [address]- Care Team Providers Care Preschool Head Teacher Name Role Phone Diandra BULLOCK, Clari Feng Primary Care Physician Encounter [facility] Date(s): 01/28/24 - 01/28/[address] [address]- Discharge Disposition: A-D/C Home Attending Physician: Nicki BULLOCK, Anshu Rooney Admitting Physician: Nicki BULLOCK, Anshu Rooney Referring Physician: Not on Staff, Referring MD Allergies, Adverse Reactions, Alerts Substance Reaction Severity Status ampicillin hives Active penicillin hives Active Bananas Active potassium chloride Severe Active Latex hives Active Immunizations Given and [...] 1 each, 3 Refills, Maintenance, 10/05/20 16:44:00EDT, [facility]/pharmacy #[id number], Partial fill upon patient request if the prescription is for a schedule IIopioid drug., 165, cm, 10/05/20 14:20:00 EDT, .. Start Date: 10/05/20 Status: Ordered FLUoxetine 10 mg oral capsule 10 mg, 1, capsule, By Mouth, Daily, Take with one 40mg capsule for a total 50mg., # 30 capsule, Refills 0, Tot. Refills 0, Maintenance, 09/28/23 21:42:00 EDT, Route to Pharmacy Electronically, [facility]/pharmacy #[id number], Partial fill upon patient request [...] 40 mg, 1, tablet, By Mouth, Daily, PRN, Refills 0, Maintenance, Wheezing/Shortness of Breath, 09/21/23 16:37:00 EDT, Partial fill upon patient request if the prescription is for a schedule II opioid drug. Start Date: 09/21/23 Status: Ordered gabapentin 400 mg oral capsule 400 mg, 1, capsule, By Mouth, 3 times a day, # 90 capsule, Refills 0, Tot. Refills 0, Maintenance, 11/02/21 8:05:00 EDT, Route to Pharmacy Electronically, [facility]/pharmacy #[id number], Partial fill upon patient request [...] mg, By Mouth, 3 times a day, Patient is at [facility] in [place], [place]. Please deliver to her facility., # 21 tablet, 0 Refills, Maintenance, 01/23/24 13:27:00 EDT, [facility], Partial fill upon pat... Start Date: 01/23/24 Stop Date: 01/30/24 Status: Ordered OXcarbazepine 600 mg oral tablet [...] drug. Start Date: 09/21/23 Status: Ordered ziprasidone 60 mg oral capsule 1 capsule = 60 mg, By Mouth, 2 times a day, Take two times a day, with meals. In the evening, take additional 20 mg capsule for a total 80 mg., # 60 capsule, 0 Refills, Maintenance, 09/28/23 21:39:00EDT, Capsule, [facility]/pharmacy #[id number], Partial fill upon... Start Date: 09/28/23 [...] Active Hypokalemia Confirmed Active Hypokalemia Confirmed Active Hypokalemia Confirmed Active Narcolepsy Confirmed Active Postmenopausal Bleeding Confirmed 04/19/11 Active Rheumatoid arthritis Confirmed Active Schizoaffective disorder Confirmed Active Seizures Confirmed Active Vital Signs Most recent to oldest [Reference Range]: 1 2 3 Height 156 cm (01/28/24 1:49 PM) 156 cm (01/28/24 12:11 PM) 156 cm (01/28/24 12:08 PM) Oxygen Saturation [94-100 %] 96 % (01/28/24 12:46 PM) 98 % (01/28/24 12:08 PM) 98 % (01/28/24 12:06 PM) Pulse Rate [55-90 bpm] 82 bpm (01/28/24 12:46 PM) 86 bpm (01/28/24 12:08 PM) 90 bpm (01/28/24 12:06 PM) Blood Pressure [90-138/55-84 mm Hg] 111/59mm Hg (01/28/24 12:46 PM) 113/60mm Hg (01/28/24 12:08 PM) Respiratory Rate [16-30 br/min] 20 br/min (01/28/24 12:46 PM) 20 br/min (01/28/24 12:08 PM) 20 br/min (01/28/24 12:06 PM) Temperature [96.8-100.4 DegF] 98.6 DegF (01/28/24 12:08 PM) Mode of Delivery (Oxygen) Room air (01/28/24 12:46 PM) Room air (01/28/24 12:08 PM) Room air (01/28/24 12:06 PM) Blood pressure sites Arm, left (01/28/24 12:46 PM) Arm, left (01/28/24 12:08 PM) Temperature Route Oral (01/28/24 12:08 PM) Dry Weight 54.2 kg (01/28/24 1:49 PM) 54.2 kg (01/28/24 12:11 PM) 54.2 kg (01/28/24 12:08 PM) Dry Weight Obtained Via Standing scale (01/28/24 12:08 PM) Social History Social History Type Response Smoking Status Former smoker, quit more than 30 days ago; Other: Quit years ago; entered on: 09/22/23 Sex Female Patient Care team information Care Team Personnel Name: Clari Jim MD Position: [facility] Physician - Primary Care Member Role: PCP Address: Address: [address] [place] [address] [address] [place] [address]- Name: Nusrat Chin RN Position: [facility] ED RN W/OE and Tasks Member Role: Primary Care Nurse Name: Lorin Barnhart RN Position: S RN Member Role: Primary Care Nurse Name: Velia Biswas RN Position: S RN Member Role: Primary Care Nurse Care Team Related Persons Name: HAYLEY DARRIN Address: home [address] [address] Name: DARRIN SCOTT Address: [place] [address] [address] Name: MARIBEL CALLES Address: home [address] [place] [address]
== END 2024-02-13 13:49 | disposition home or self-care (01) ==
PROVIDERS: Physician Assistant Medical; Emergency Provider Emergency Medicine; PCP Internal Medicine
DX: Z76.0 Encounter for issue of repeat prescription (principal); Z79.899 Other long term (current) drug therapy
CPT/HCPCS: 36415; 80053; 83735; 84439; 84443; 85025; 99282

== ENCOUNTER 2024-02-29 18:14 | Emergency (ER) | payer MEDICARE, MEDICAID, SELFPAY ==
--- NOTE | ~2024-02-29 | CT_ITS ---
EXAMINATION: CT HEAD WITHOUT CONTRAST CLINICAL INFORMATION: Headache. Recurrent falls. COMPARISON: CT head from 10/25/2022. TECHNIQUE: Contiguous axial imaging was performed from the skull base to vertex without intravenous administration of contrast. This CT examination was performed using dose optimization techniques as appropriate, variously including the following: *Automated exposure control. *Adjustment of mA and/or kV according to patient size (this includes techniques or standardized protocols for targeted exams where dose is matched to indication/reason for exam; i.e. extremities or head). *Use of iterative reconstruction technique. DLP: 561 mGy-cm FINDINGS: There is no evidence of acute intracranial hemorrhage or edematous territorial infarction. Carpenter-white matter differentiation is preserved. A few foci of hypoattenuation in the periventricular and deep white matter are consistent with mild microangiopathy. Proportional prominence of the ventricles and sulcal spaces without evidence of obstructive hydrocephalus. The suprasellar cistern remains widely patent. Normal positioning of the cerebellar tonsils. No abnormal mass effect or midline shift. No extra-axial fluid collections. Calcific atherosclerotic disease of the intracranial internal carotid and vertebral arteries. No hyperdense vessel sign. No acute soft tissue or osseous abnormalities. The mastoid air cells and visualized paranasal sinuses are clear. CT/CT head/brain wo IV con IMPRESSION: 1. No evidence of acute intracranial hemorrhage or edematous territorial infarction. 2. Mild underlying microangiopathy and generalized cerebral volume loss. Electronically signed by: Jerrod Larose DO 02/29/2024 08:36 PM EDT
[2024-02-29 18:35] VITALS: BP 128/62; PULSE 83; RESP 16; TEMP 37.1; O2SAT 97; BMI 21.6
--- NOTE | 2024-02-29 18:35 | ED_ITS ---
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 Associated dry cough, sinus pain and pressure, nasal congestion and postnasal drip. The headache is frontal, unable to describe. Patient is also asking for her Ritalin to be refilled. Denies fevers, chest pain, shortness of breath. Related Data Home Medications ?Medication ?Instructions ?Recorded ?Confirmed celecoxib 200 mg capsule 200 mg PO BID 11/09/22 11/09/22 erenumab-aooe 140 mg/mL 140 mg subcut Q4W 11/09/22 11/09/22 subcutaneous auto-injector (Aimovig Autoinjector) fluoxetine 10 mg capsule 10 mg PO QAM 11/09/22 11/09/22 fluoxetine 40 mg capsule 40 mg PO QAM 11/09/22 11/09/22 furosemide 40 mg tablet 40 mg PO BID 11/09/22 11/09/22 gabapentin 300 mg capsule 300 mg PO BID 11/09/22 11/09/22 methylphenidate HCl 20 mg tablet 20 mg PO TID 11/09/22 11/09/22 prednisone 5 mg tablet 5 mg PO DAILY 11/09/22 11/09/22 topiramate 100 mg tablet 100 mg PO BID 11/09/22 11/09/22 ziprasidone HCl 60 mg capsule 60 mg PO BID 11/09/22 11/09/22 Previous Rx's ?Medication ?Instructions ?Recorded levothyroxine 25 mcg capsule 25 mcg PO DAILY 30 days #30 caps 02/13/24 Allergies Allergy/AdvReac Type Severity Reaction Status Date / Time latex [Latex] Allergy Intermediate SWELLING Verified 02/29/24 18:39 ampicillin [Ampicillin] Allergy Mild ITCHING Verified 02/29/24 18:39 potassium chloride Allergy Mild ITCHING Verified 02/13/24 10:36 [Potassium Chloride] Review of Systems Review of Systems: Yes all other systems are reviewed and are negative Constitutional: Constitutional: Denies fatigue, Denies fever(s) and Reports headache(s) ENT: Reports headache(s), Reports nasal congestion, Reports sinus pain and Reports sinus pressure Cardiovascular: Cardiovascular: Denies chest pain and Denies dyspnea Respiratory: Respiratory: Denies cough and Denies dyspnea Neurologic: Reports headache(s) Endocrine: Endocrine: Denies fatigue [facility] Past Medical History Attestation statement: The following information was validated with the patient. Social History Social History Alcohol intake: unknown Smoked in Last 30 Days: No Use of substances other than those prescribed or required for medical reasons: No Advance Directives: No Advance Directives Information Provided: No Do you have a plan to hurt others: No Plan Physical Exam ED Vital Signs: Vital Signs - 24 hr 02/29/24 18:35 02/29/24 22:17 03/01/24 00:18 Temperature 98.8 F 98.2 F Pulse Rate 83 75 56 Respiratory Rate 16 12 12 Blood Pressure 128/62 132/74 107/59 L Pulse Oximetry 97 98 97 Oxygen Delivery Method Room Air Room Air Room Air 03/01/24 00:38 Temperature 98.2 F Pulse Rate 56 Respiratory Rate 12 Blood Pressure 107/59 L Pulse Oximetry Oxygen Delivery Method Room Air BMI result Body Mass Index 21.6 Const Other: Awake, appears older than stated age Orientation/consciousness: patient oriented x3 Neck Other: Soft supple, full range of motion no meningeal sign Resp Other: Nonlabored respiration Cardio Other: Normal peripheral perfusion Skin Other: Warm dry no rash Neuro General: patient oriented x3, no focal motor deficits and CN's II-XI intact bilaterally Extrem Other: Strength 5/5 bilateral upper and lower extremities, patient ambulates with a normal steady gait Psych Other: Calm cooperative Course Course Course Narrative: This is a Rapid Medical Examination (RME) performed by Steffi Serrano PA-C in triage. Full HPI, ROS, assessment and treatment plan per primary provider in the Main ED. 69 yo female with history of ADHD, nacrolepsy, cataplexy, epilepsy presents to the ER for evaluation of headache, sinus pressure for 2 weeks. she reports his tory of chronic headaches. she also is requesting a med refill for multiple medications. she states she has left lower back pain. slurred speech in triage which she states is chronic. she reports frequent falls due to her narcolepsy. she is not on anticoagulation. she is otherwise neurologically intact and oriented. Plan: Medications Administered Discontinued Medications Generic Name Dose Route Start Last Admin Trade Name Nicole PRN Reason Stop Dose Admin Acetaminophen 975 mg 02/29/24 23:17 02/29/24 23:28 Acetaminophen 325 Mg Tablet PO 02/29/24 23:18 975 mg ONCE ONE Administration Methylphenidate HCl 20 mg 02/29/24 23:16 02/29/24 23:28 Methylphenidate Hcl 10 Mg Tablet PO 02/29/24 23:17 20 mg ONCE ONE Administration Medical Decision Making Medical Decision Making [facility] Narrative: 69-year-old female with history of narcolepsy on Ritalin, hypothyroidism presents with viral syndrome x4 days. Associated dry cough, sinus pain and pressure, nasal congestion and postnasal drip. The headache is frontal, unable to describe. Patient is also asking for her Ritalin to be refilled. Denies fevers, chest pain, shortness of breath. No relevant chronic issues History: Per patient I have considered the following differential diagnoses: Viral syndrome, URI, bacterial sinusitis, sinus headache, intracranial hemorrhage, meningitis Plan: Patient is assessment began in [facility], labs, viral swab was obtained, they also obtained a CT scan of the brain. There was no evidence of sinusitis on CT scan, and furthermore, she has only had symptoms for 4 days, it would be way too soon for her to of developed a secondary bacterial sinusitis. We will send with [id number] home care remedies. Also thought about meningitis, however there are no meningeal signs on exam she has no complaint of neck pain she is also not altered she is afebrile. I told the patient that I would give her a 1 time dose of Ritalin here in the ED, that I would not be refilling her prescription, that she needs to reach out to the provider who manages her narcolepsy. I have considered the following differential diagnoses: Meningitis, viral syndrome, sinusitis, sinus headache, Labs: No leukocytosis, not anemic, no electrolyte abnormality, viral panel is negative, patient is screened for COVID, influenza and RSV CLINICAL INFORMATION: Headache. Recurrent falls. COMPARISON: CT head from 10/25/2022. TECHNIQUE: Contiguous axial imaging was performed from the skull base to vertex without intravenous administration of contrast. This CT examination was performed using dose optimization techniques as appropriate, variously including the following: *Automated exposure control. *Adjustment of mA and/or kV according to patient size (this includes techniques or standardized protocols for targeted exams where dose is matched to indication/reason for exam; i.e. extremities or head). *Use of iterative reconstruction technique. DLP: 561 mGy-cm FINDINGS: There is no evidence of acute intracranial hemorrhage or edematous territorial infarction. Carpenter-white matter differentiation is preserved. A few foci of hypoattenuation in the periventricular and deep white matter are consistent with mild microangiopathy. Proportional prominence of the ventricles and sulcal spaces without evidence of obstructive hydrocephalus. The suprasellar cistern remains widely patent. Normal positioning of the cerebellar tonsils. No abnormal mass effect or midline shift. No extra-axial fluid collections. Calcific atherosclerotic disease of the intracranial internal carotid and vertebral arteries. No hyperdense vessel sign. No acute soft tissue or osseous abnormalities. The mastoid air cells and visualized paranasal sinuses are clear. CT/CT head/brain wo IV con IMPRESSION: 1. No evidence of acute intracranial hemorrhage or edematous territorial infarction. 2. Mild underlying microangiopathy and generalized cerebral volume loss. Electronically signed by: Jerrod Larose DO 02/29/2024 08:36 PM EDT RP Lab Data Labs: Lab Results 02/29/24 Range/Units 18:58 Influenza Type A (PCR) NEGATIVE (Negative) Influenza Type B (PCR) NEGATIVE (Negative) RSV RNA Qual (PCR) NEGATIVE (Negative) SARS-CoV-2 RNA (RT-PCR) NEGATIVE (Negative) Discharge Plan Discharge Clinical Impression: Acute viral syndrome, Sinus headache Patient Disposition: Home, Self-Care Instructions: Cold Symptoms (ED) Additional Instructions: The CT scan of your brain was negative for acute process, including there is no sinusitis. You have a virus causing your constellation of symptoms. See home care instructions. To alleviate your nasal congestion, you should be using epco-xqb-siuviar Zyrtec, daily, until your symptoms are alleviated. Ofnp-shb-vwzzjxh saline nasal sprays are helpful as well, they will help alleviate the congestion. For the sinus headache, you can use cgue-iwb-hpcioyi Tylenol 1000 mg taken every 8 hours. Follow up with your primary care provider as needed. Prescriptions: No Action fluoxetine 40 mg capsule 40 mg PO QAM prednisone 5 mg tablet 5 mg PO DAILY fluoxetine 10 mg capsule 10 mg PO QAM methylphenidate HCl 20 mg tablet 20 mg PO TID gabapentin 300 mg capsule 300 mg PO BID ziprasidone HCl 60 mg capsule 60 mg PO BID Aimovig Autoinjector 140 mg/mL auto-injector 140 mg subcut Q4W celecoxib 200 mg capsule 200 mg PO BID furosemide 40 mg tablet 40 mg PO BID topiramate 100 mg tablet 100 mg PO BID levothyroxine 25 mcg capsule 25 mcg PO DAILY 30 Days Qty: 30 0RF Interventions: ED Discharge Assessment Last Done: 03/01/24 00:38 Discharge Date/Time: 03/01/24 00:27 Print Language: Algerian
[2024-02-29 19:43] LABS: Influenza A PCR NEGATIVE (Negative); Influenza B PCR NEGATIVE (Negative); Resp Syncy Virus RNA Qual PCR NEGATIVE (Negative); SARS COV2 PCR INHOUSE NEGATIVE (Negative)
--- NOTE | 2024-02-29 22:06 | PC.NURSE ---
pt from [facility], assume care of pt at this time. Pt states she has a history of seizures, and took her last pill at 1230 today. Pt has a headache, and states she needs to see a neurologist. Seizure pads, placed on bed, call light given
[2024-02-29 22:17] VITALS: BP 132/74; PULSE 75; RESP 12; O2SAT 98
[2024-02-29] MEDS: Acetaminophen 325 MG TABLET 975 MG PO (23:28)
[2024-02-29] MEDS: Methylphenidate HCl 10 MG TABLET 20 MG PO (23:28)
[2024-03-01 00:18] VITALS: BP 107/59; PULSE 56; RESP 12; TEMP 36.8; O2SAT 97
[2024-03-01 00:38] VITALS: BP 107/59; PULSE 56; RESP 12; TEMP 36.8
== END 2024-03-01 00:27 | disposition home or self-care (01) ==
PROVIDERS: Physician Assistant; Emergency Provider Emergency Medicine
DX: B34.9 Viral infection, unspecified (principal); R51.9 Headache, unspecified; Z03.818 Encounter for observation for suspected exposure to other biological agents ruled out; R05.9 Cough, unspecified
CPT/HCPCS: 0241U; 70450; 99284

== ENCOUNTER 2024-03-14 19:14 | Emergency (ER) | payer MEDICARE, SELFPAY ==
[2024-03-14 19:45] VITALS: BP 116/65; PULSE 67; RESP 20; TEMP 36.6; O2SAT 96; BMI 21.6
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
[2024-03-14 20:04] LABS: MANUAL DIFF FLAG NO
[2024-03-14 20:05] LABS: Basophils Absolute Auto 0.1 X10*3/uL (0.0-0.2); Basophils Percent Auto 0.9 % (0-2); Eosinophils Absolute Auto 0.1 X10*3/uL (0.0-0.4); Eosinophils Percent Auto 2.5 % (0-4); Hematocrit 36.4 % (37.0-47.0); Hemoglobin 12.3 g/dl (12.0-16.0); Imm Gran Abs Auto 0.02 X10*3/uL (0.00-0.03); Imm Gran Pct Auto 0.4 % (0.0-0.4); Lymphocytes Absolute Auto 1.8 X10*3/uL (1.2-4.9); Lymphocytes Percent Auto 31.7 % (20-40); Mean Corpuscular HGB Conc 33.8 g/dl (31.0-35.0); Mean Corpuscular Hemoglobin 31.9 pg (27.0-33.0); Mean Corpuscular Volume 94.3 fL (80.0-98.0); Mean Platelet Volume 8.7 fL (9.4-12.3); Monocytes Absolute Auto 0.4 X10*3/uL (0.1-1.2); Monocytes Percent Auto 7.7 % (2-11); Neutrophils Absolute Auto 3.2 x10*3/uL (2.0-8.3); Neutrophils Percent Auto 56.8 % (45-73); Platelet Count 238 X10*3/uL (160-400); Red Blood Count 3.86 X10*6/uL (4.20-5.50); Red Cell Distribution Width 12.3 % (11.0-16.0); White Blood Count 5.6 X10*3/uL (4.8-10.8)
[2024-03-14 20:31] LABS: Alanine Aminotransferase 22 U/L (0-31); Albumin Level 3.8 g/dL (3.5-5.0); Alkaline Phosphatase 161 U/L (39-117); Anion Gap 7 (12-20); Aspartate Amino Transferase 19 U/L (5-31); Bilirubin Direct 0.1 mg/dL (0.0-0.5); Bilirubin Total 0.3 mg/dL (0.0-1.0); Blood Urea Nitrogen 12 mg/dL (9-16); Calcium 8.7 mg/dL (8.4-10.2); Carbon Dioxide 26 mmol/L (22-29); Chloride 110 mmol/L (96-108); Creatinine Clr Calc Pharmacy 63.6; Estimated Glomerular Filt Rate > 60; Glucose Random 78 mg/dL (60-115); Magnesium 2.2 mg/dL (1.6-2.6); Potassium 3.8 mmol/L (3.3-5.1); Sodium 139 mmol/L (135-145); Total Protein 6.1 g/dL (6.5-8.0)
[2024-03-14 20:35] LABS: Ethanol < 10 mg/dL
--- NOTE | 2024-03-14 23:48 | PC.NURSE ---
pt from lobby, assume care of pt at this time
--- NOTE | 2024-03-14 23:49 | PC.NURSE ---
when pt was asked why she was here, pt states, because she has narcolepsy, and needed her medication. States she hasn't had it, since yesterday
[2024-03-14 23:50] VITALS: BP 153/68; PULSE 58; RESP 20; TEMP 36.5; O2SAT 98
[2024-03-15 03:23] VITALS: BP 116/64; PULSE 56; RESP 14; TEMP 36.7; O2SAT 96
[2024-03-15 06:04] LABS: Appearance Urine Turbid; Color Urine Yellow; Glucose Urine UA Negative (Negative); Leukocyte Esterase Urine Moderate (2+) (Negative); Nitrite Urine Negative (Negative); Specific Gravity - Urine 1.015 (1.005-1.025); UMIC TRIGGER UACC YES; Urine Blood Trace (Negative); Urine Ketones Negative (Negative); Urine Protein Negative (Neg-Trace)
[2024-03-15 06:15] LABS: Bacteria Urine 4+ (None Seen); Hyaline Casts Urine 0-2 /LPF (0-2); Squamous Epithelial Cell Urine >20 /HPF (0-2); UACC Culture Trigger YES
[2024-03-15 06:23] VITALS: BP 121/72; PULSE 59; RESP 14; TEMP 36.7; O2SAT 95
[2024-03-15 06:23] LABS: Amphetamine Screen Urine Not Detected (Not Detect); Barbiturates, Urine Not Detected (Not Detect); Benzodiazepines Screen Urine Not Detected (Not Detect); Buprenorphine Scr Not Detected (Not Detect); Cannabinoid Screen Urine Not Detected (Not Detect); Cocaine Screen Urine Not Detected (Not Detect); Fentanyl, urine Not Detected (Not Detect); Methadone Screen, Urine Not Detected (Not Detect); Opiate Screen Urine Not Detected (Not Detect); Oxycodone Screen Urine Not Detected (Not Detect); Phencyclidine Screen Urine Not Detected (Not Detect)
--- NOTE | 2024-03-15 06:59 | PC.NURSE ---
report given to Shelly MON
--- NOTE | 2024-03-15 09:03 | PHA.MEDREC ---
Pharmacy Consult ? Medication Reconciliation Pharmacy has completed the medication reconciliation. Spoke to patient at bedside. She was able to remember most of her medications with some prompting. But stated she takes methylphenidate 20 mg QID, though it was filled last month for TID. Additionally was unsure of Prednisone dose and said maybe 5 mg but has been filling 40 mg.
[2024-03-15 10:07] VITALS: BP 102/48; PULSE 74; RESP 18; TEMP 37; O2SAT 97
[2024-03-15] MEDS: Methylphenidate HCl 10 MG TABLET 20 MG PO (10:23)
[2024-03-15 10:26] VITALS: BP 102/48; PULSE 74; RESP 18; TEMP 37; O2SAT 97
== END 2024-03-15 10:26 | disposition home or self-care (01) ==
PROVIDERS: Physician Assistant; Emergency Provider Internal Medicine
DX: S80.11XA Contusion of right lower leg, initial encounter (principal); S80.12XA Contusion of left lower leg, initial encounter; F33.1 Major depressive disorder, recurrent, moderate; R60.0 Localized edema; X58.XXXA Exposure to other specified factors, initial encounter; Y93.89 Activity, other specified; Y92.89 Other specified places as the place of occurrence of the external cause; Y99.8 Other external cause status; Z51.81 Encounter for therapeutic drug level monitoring; Z79.899 Other long term (current) drug therapy
CPT/HCPCS: 36415; 80048; 80076; 80307; 81001; 82550; 83735; 85025; 87086; 99284; S9485

== ENCOUNTER 2024-10-02 19:29 | Observation (INO) | payer MEDICARE, OTHER, SELFPAY ==
--- NOTE | 2024-10-02 | ECG_ITS ---
Test Reason : SIEZURE Blood Pressure : */* mmHG Vent. Rate : 62 BPM Atrial Rate : 62 BPM P-R Int : 148 ms QRS Dur : 100 ms QT Int : 420 ms P-R-T Axes : 64 60 55 degrees QTcB Int : 426 ms Normal sinus rhythm Nonspecific T wave abnormality Abnormal ECG When compared with ECG of 25-Oct-2022 14:58, No significant change was found Referred By: Generic ED Physician Electronically Signed By: Ramon John
--- NOTE | ~2024-10-02 | CT_ITS ---
CLINICAL HISTORY: seizures, slurred speech, unknown last seen well CT Head without contrast. CT angiography head and neck with contrast. 3D Postprocessing. Comparison: None Findings: HEAD CT: No intra-axial mass, midline shift, hydrocephalus, or acute hemorrhage. No significant atrophy-like change or white matter disease. The visualized paranasal sinuses and mastoid air cells are normal. The orbits are unremarkable. There is no acute fracture. HEAD AND NECK CTA: Aortic arch and cervical great vessels are patent. Intracranial arteries are patent. No aneurysm, dissection, or occlusion. No abnormal intracranial enhancement. The visualized thyroid gland is unremarkable. No cervical mass or fluid collection. Lung apices clear. No acute fracture. IMPRESSION: 1. Unremarkable head CT. 2. Patent head and neck CTA. This document has been electronically signed by: Ford Lundy MD on 10/03/2024 01:20:00
[2024-10-02 19:38] VITALS: BP 113/56; BP 128/78; PULSE 63; PULSE 83; RESP 18; TEMP 36.1; O2SAT 98; O2SAT 99; BMI 20.9
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
[2024-10-02 19:51] VITALS: BP 115/57; PULSE 76; RESP 22; TEMP 36.1; O2SAT 99
--- OUTSIDE RECORDS SUMMARY | 2024-10-02 20:11 | XMS_ITS | Clinical Summary ---
Author Organization Unknown Care Team Providers Care Cooler Man Name Role Phone ISH BULLOCK, JONATHAN Unavailable Ellen BROWN RN, SHIRLEY Unavailable Unavailable ROSALINE MON, ELIZABETH Unavailable Unavailable Payers Payer Name Policy Type Policy Number Effective Date Expira tion Date [employer] MEDICARE ADVANTAGE FFS [id number] MEDICARE - [facility] - PDGM [id number] Problems Condition Name Condition Details Condition Category Status Onset Date Resolution Date Last Treatment Date Treating Clinician Comments SCHIZOAFFECT ASHLEY DISORDER, UNSPECIFIED Active 09-11 00:00: 00 WEAKNESS Active 09-21 00:00: 00 EPILEPSY, UNSP, NOT INTRACTABLE, WITHOUT STATUS EPILEPTICUS Active 09-21 00:00: 00 TYPE 2 DIABETES MELLITUS WITHOUT COMPLICATION S Active 09-27 00:00: 00 Allergies, Adverse Reactions, Alerts Allergy Name Allergy Type Status Severity Reaction(s) Onset Date Inactive Date Treating Clinician Comments AMPICILLIN Propensity to adverse reactions Active 09-21 18:44: 00 PENICILLIN Propensity to adverse reactions Active 09-21 18:44: 28 LATEX Propensity to adverse reactions Active 09-21 18:44: 51 POTASSIUM CHLORIDE Propensity to adverse reactions Active 09-21 18:45: 21 BANANA Propensity to adverse reactions Active 09-21 18:45: 36 Medications Ordered Medication Name Filled Medication Name Start Date Stop Date Current Medication? Ordering Clinician Indication Dosage Frequency Signature (SIG) Comments Components fluoxetine 10 mg capsule 07-18 00:00: 00 09-10 23:59 :00 No [id number] 10 mg DAILY 10 mg DAILY (route: oral) Med Classific ation: Central Nervous System Agents fluoxetine 40 mg capsule 07-18 00:00: 00 09-10 23:59 :00 No [id number] 40 mg DAILY 40 mg DAILY (route: oral) Med Classific ation: Central Nervous System Agents gabapentin 400 mg capsule 07-18 00:00: 00 09-10 23:59 :00 No [id number] 400 mg 3 TIMES DAILY 400 mg 3 TIMES DAILY (route: oral) Med Classific ation: Central Nervous System Agents imipramine 50 mg tablet 07-18 00:00: 00 09-10 23:59 :00 No [id number] 50 mg 3 TIMES DAILY 50 mg 3 TIMES DAILY (route: oral) Med Classific ation: Central Nervous System Agents Keppra 750 mg tablet 07-18 00:00: 00 09-10 23:59 :00 No [id number] 1500 mg 3 TIMES DAILY 1500 mg 3 TIMES DAILY (route: oral) Med Classific ation: Central Nervous System Agents Lasix 40 mg tablet 07-18 00:00: 00 09-10 23:59 :00 No [id number] 40 mg DAILY 40 mg DAILY (route: oral) Med Classific ation: Cardiovas cular Therapy Agents oxcarbazepi ne 600 mg tablet 07-18 00:00: 00 09-10 23:59 :00 No [id number] 600 mg 2 TIMES DAILY 600 mg 2 TIMES DAILY (route: oral) Med Classific ation: Central Nervous System Agents potassium chloride ER 10 mEq tablet,exte nded release 07-18 00:00: 00 09-10 23:59 :00 No [id number] 1 tablet DAILY 1 tablet DAILY (route: oral) Med Classific ation: Electroly te Balance-N utritiona l Products prednisone 5 mg tablet 07-18 00:00: 00 09-10 23:59 :00 No [id number] 5 mg DAILY 5 mg DAILY (route: oral) Med Classific ation: Endocrine Ritalin 20 mg tablet 07-18 00:00: 00 09-10 23:59 :00 No [id number] 20 mg 3 TIMES DAILY 20 mg 3 TIMES DAILY (route: oral) Med Classific ation: Central Nervous System Agents ziprasidone 60 mg capsule 07-18 00:00: 00 09-10 23:59 :00 No [id number] 60 mg 2 TIMES DAILY 60 mg 2 TIMES DAILY (route: oral) Med Classific ation: Central Nervous System Agents Aimovig Autoinjecto r 140 mg/mL subcutaneou s auto-inject or 07-18 00:00: 00 09-10 23:59 :00 No [id number] Per instruc tions DIRECTED Per instructio ns DIRECTED (route: subcutaneo us) Med Classific ation: Central Nervous System Agents Aimovig Autoinjecto r 140 mg/mL subcutaneou s auto-inject or 09-21 00:00: 00 Yes [id number] 140 mg MONTHLY 140 mg MONTHLY (route: subcutaneo us) Med Classific ation: Central Nervous System Agents dextroamphe tamine-amph etamine 5 mg tablet 09-21 00:00: 00 Yes [id number] 1 tablet 2 TIMES DAILY 1 tablet 2 TIMES DAILY (route: oral) Med Classific ation: Central Nervous System Agents fluoxetine 10 mg capsule 09-21 00:00: 00 Yes [id number] 1 capsule EVERY AM 1 capsule EVERY AM (route: oral) Med Classific ation: Central Nervous System Agents fluoxetine 40 mg capsule 09-21 00:00: 00 Yes [id number] 1 capsule EVERY AM 1 capsule EVERY AM (route: oral) Med Classific ation: Central Nervous System Agents furosemide 40 mg tablet 09-21 00:00: 00 Yes [id number] 1 tablet DAILY 1 tablet DAILY (route: oral) Med Classific ation: Cardiovas cular Therapy Agents gabapentin 400 mg capsule 09-21 00:00: 00 Yes [id number] 1 capsule 3 TIMES DAILY 1 capsule 3 TIMES DAILY (route: oral) Med Classific ation: Central Nervous System Agents imipramine 50 mg tablet 09-21 00:00: 00 Yes [id number] 1 tablet 4 TIMES DAILY 1 tablet 4 TIMES DAILY (route: oral) Med Classific ation: Central Nervous System Agents levetiracet am 750 mg tablet 09-21 00:00: 00 Yes [id number] 2 tablet 2 TIMES DAILY 2 tablet 2 TIMES DAILY (route: oral) Med Classific ation: Central Nervous System Agents methylpheni date 20 mg tablet 09-21 00:00: 00 Yes [id number] 1 tablet 3 TIMES DAILY 1 tablet 3 TIMES DAILY (route: oral) Med Classific ation: Central Nervous System Agents oxcarbazepi ne 600 mg tablet 09-21 00:00: 00 Yes [id number] 1 tablet 2 TIMES DAILY 1 tablet 2 TIMES DAILY (route: oral) Med Classific ation: Central Nervous System Agents potassium chloride ER 10 mEq tablet,exte nded release 09-21 00:00: 00 Yes [id number] 1 tablet EVERY AM 1 tablet EVERY AM (route: oral) Med Classific ation: Electroly te Balance-N utritiona l Products prednisone 5 mg tablet 09-21 00:00: 00 Yes [id number] 1 tablet EVERY AM 1 tablet EVERY AM (route: oral) Med Classific ation: Endocrine topiramate 50 mg tablet 09-21 00:00: 00 Yes [id number] 1 tablet 2 TIMES DAILY 1 tablet 2 TIMES DAILY (route: oral) Med Classific ation: Central Nervous System Agents ziprasidone 60 mg capsule 09-21 00:00: 00 Yes [id number] 1 capsule 2 TIMES DAILY 1 capsule 2 TIMES DAILY (route: oral) Med Classific ation: Central Nervous System Agents ziprasidone 60 mg capsule 09-21 00:00: 00 Yes [id number] 1 capsule EVERY PM 1 capsule EVERY PM (route: oral) Med Classific ation: Central Nervous System Agents Vital Signs Vital Name Observation Time Observation Value Commen ts Temperature 2024-09-21 10:39:00.000 98.9 [degF] Pulse 2024-10-02 07:04:00.000 68 /min Pulse 2024-09-21 10:39:00.000 96 /min Respirations 2024-09-21 10:39:00.000 16 /min Systolic Blood Pressure 2024-10-02 07:04:00.000 122 mm [Hg] Systolic Blood Pressure 2024-09-21 10:39:00.000 102 mm [Hg] Diastolic Blood Pressure 2024-10-02 07:04:00.000 62 mm [Hg] Diastolic Blood Pressure 2024-09-21 10:39:00.000 50 mm [Hg] Plan of Treatment Planned Activity Planned Date Details Comments Future Scheduled Test SKILLED NU RSE TO EVALUATE PATIENT, IDENTIFY PRIMARY AND CO-MORBID CONDITIONS CODED PER CODING GUIDELINES, AND DEVELOP PATIENT SPECIFIC PLAN OF CARE THAT INCLUDES PATIENT GOAL FOR HOME HEALTH. [code = SKILLED NURSE TO EVALUATE PATIENT, IDENTIFY PRIMARY AND CO-MORBID CONDITIONS CODED PER CODING GUIDELINES, AND DEVELOP PATIENT SPECIFIC PLAN OF CARE THAT INCLUDES PATIENT GOAL FOR HOME HEALTH.] Future Scheduled Test SKILLED NU RSE TO PERFORM HOME SAFETY AND FALL ASSESSMENT AND PROVIDE INSTRUCTION TO IMPLEMENT HOME SAFETY AND FALL PREVENTION STRATEGIES. [code = SKILLED NURSE TO PERFORM HOME SAFETY AND FALL ASSESSMENT AND PROVIDE INSTRUCTION TO IMPLEMENT HOME SAFETY AND FALL PREVENTION STRATEGIES.] Future Scheduled Test SKILLED NU RSE FOR OBSERVATION AND ASSESSMENT OF PATIENTS PAIN LEVEL AND EFFECTIVENESS OF PAIN MANAGEMENT REGIMEN. SKILLED NURSE TO INSTRUCT PATIENT/CAREGIVER REGARDING PHARMACOLOGIC AND NON-PHARMACOLOGIC PAIN CONTROL MEASURES. SKILLED NURSE TO REPORT TO PHYSICIAN IF PAIN IS UNCONTROLLED WITH CURRENT PAIN MANAGEMENT REGIMEN. [code = SKILLED NURSE FOR OBSERVATION AND ASSESSMENT OF PATIENTS PAIN LEVEL AND EFFECTIVENESS OF PAIN MANAGEMENT REGIMEN. SKILLED NURSE TO INSTRUCT PATIENT/CAREGIVER REGARDING PHARMACOLOGIC AND NON-PHARMACOLOGIC PAIN CONTROL MEASURES. SKILLED NURSE TO REPORT TO PHYSICIAN IF PAIN IS UNCONTROLLED WITH CURRENT PAIN MANAGEMENT REGIMEN.] Future Scheduled Test PATIENT ANDERSON S A RISK OF HOSPITALIZATION AND ED USE. SKILLED NURSE TO ESTABLISH SUPPORT MEASURES TO MINIMIZE RISK OF HOSPITALIZATION AND ED USE, AND INSTRUCT PATIENT/CAREGIVER ON METHODS TO REDUCE AVOIDABLE HOSPITALIZATION AND ED USE. [code = PATIENT HAS A RISK OF HOSPITALIZATION AND ED USE. SKILLED NURSE TO ESTABLISH SUPPORT MEASURES TO MINIMIZE RISK OF HOSPITALIZATION AND ED USE, AND INSTRUCT PATIENT/CAREGIVER ON METHODS TO REDUCE AVOIDABLE HOSPITALIZATION AND ED USE.] Future Scheduled Test SKILLED NU RSE TO O/A OF PATIENTS MENTAL/BEHAVIORAL STATUS, ASSESS VITAL SIGNS WEEKLY AND PRN ALLOW 2 PRNS FOR MEDICATION MANAGEMENT. [code = SKILLED NURSE TO O/A OF PATIENTS MENTAL/BEHAVIORAL STATUS, ASSESS VITAL SIGNS WEEKLY AND PRN ALLOW 2 PRNS FOR MEDICATION MANAGEMENT.] Future Scheduled Test SKILLED NU RSE WILL MAINTAIN SITUATIONAL AWARENESS FOR SAFETY AND WILL NOTIFY CLINICAL SENIOR TRAINING AND DEVELOPMENT REP AND PHYSICIAN/PROVIDER WITH ANY CHANGE IN CONDITION. [code = SKILLED NURSE WILL MAINTAIN SITUATIONAL AWARENESS FOR SAFETY AND WILL NOTIFY CLINICAL SENIOR TRAINING AND DEVELOPMENT REP AND PHYSICIAN/PROVIDER WITH ANY CHANGE IN CONDITION.] Future Scheduled Test SKILLED NU RSE FOR O/A OF GENERAL HEALTH STATUS OF PAIN, CARDIAC, RESPIRATORY, GASTROINTESTINAL, GENITOURINARY, SKIN, NEUROLOGIC, ENDOCRINE SYSTEMS TO IDENTIFY CHANGES ASSOCIATED WITH EXACERBATION FOR EARLY INTERVENTION OF COMPLICATIONS WEEKLY. [code = SKILLED NURSE FOR O/A OF GENERAL HEALTH STATUS OF PAIN, CARDIAC, RESPIRATORY, GASTROINTESTINAL, GENITOURINARY, SKIN, NEUROLOGIC, ENDOCRINE SYSTEMS TO IDENTIFY CHANGES ASSOCIATED WITH EXACERBATION FOR EARLY INTERVENTION OF COMPLICATIONS WEEKLY.] Future Scheduled Test SKILLED NU RSE TO ADMINISTER AM MEDICATIONS AND PRE-POUR NOON, PM, HS AND PRN MEDICATIONS MONDAY THROUGH MONDAY. SN TO PREFILL ALL MEDICATIONS OVER THE WEEKEND PER MEDICATION LIST. [code = SKILLED NURSE TO ADMINISTER AM MEDICATIONS AND PRE-POUR NOON, PM, HS AND PRN MEDICATIONS MONDAY THROUGH MONDAY. SN TO PREFILL ALL MEDICATIONS OVER THE WEEKEND PER MEDICATION LIST.] Future Scheduled Test SKILLED NU RSE FOR ADMINISTRATION AND TEACHING OF PRESCRIBED INJECTION THERAPY FOR AIMOVIG EVERY 28 DAYS +/- 2 DAYS [code = SKILLED NURSE FOR ADMINISTRATION AND TEACHING OF PRESCRIBED INJECTION THERAPY FOR AIMOVIG EVERY 28 DAYS +/- 2 DAYS] Future Scheduled Test MEDICATION S WILL BE HELD AND STORED IN LOCKBOX [code = MEDICATIONS WILL BE HELD AND STORED IN LOCKBOX] Future Scheduled Test SKILLED NU RSE MAY PICKUP AND TRANSPORT MEDICATIONS [code = SKILLED NURSE MAY PICKUP AND TRANSPORT MEDICATIONS] Future Scheduled Test PATIENT MA Y HAVE TWO SETS OF EMERGENCY MEDICATION NOT TO BE PRE-POURED ANY SOONER THAN 24 HOURS BEFORE SEVERE INCLEMENT WEATHER OR EMERGENT EVENT AND FOLLOWING SKILLED NURSE EVALUATION OF PATIENT SAFETY. PTS BOYFRIEND TO HOLD EMERGENCY MEDS FOR PATIENT. [code = PATIENT MAY HAVE TWO SETS OF EMERGENCY MEDICATION NOT TO BE PRE-POURED ANY SOONER THAN 24 HOURS BEFORE SEVERE INCLEMENT WEATHER OR EMERGENT EVENT AND FOLLOWING SKILLED NURSE EVALUATION OF PATIENT SAFETY. PTS BOYFRIEND TO HOLD EMERGENCY MEDS FOR PATIENT. ] Goal Patient Goal - T O GET HELP WITH MY MEDICATION Goal Provider Goal - A PLAN OF CARE WILL BE ESTABLISHED THAT MEETS PATIENT'S GROUP HOME NEEDS AND INCLUDES PATIENT GOAL FOR HOME HEALTH. Goal Provider Goal - PATIENT/CAREGIVER WILL VERBALIZE/DEMONSTRATE EFFECTIVE HOME SAFETY AND FALL PREVENTION STRATEGIES THROUGHOUT CERTIFICATION PERIOD. Goal Provider Goal - PATIENT/CAREGIVER WILL DEMONSTRATE UNDERSTANDING OF PHARMACOLOGIC AND NONPHARMACOLOGIC PAIN CONTROL MEASURES AND PATIENT WILL HAVE IMPROVEMENT IN PAIN INTERFERING WITH ACTIVITY EVIDENCED BY PAIN CONTROLLED AT LEVEL OF 4 OR LESS BY END OF CERTIFICATION PERIOD. Goal Provider Goal - PATIENT WILL HAVE SUPPORT MEASURES ESTABLISHED TO PREVENT HOSPITALIZATION AND ED USE AND PATIENT/CAREGIVER WILL VERBALIZE/DEMONSTRATE METHODS TO REDUCE AVOIDABLE HOSPITALIZATION AND ED USE BY END OF EPISODE. Goal Provider Goal - ALTERED MENTAL/BEHAVIORAL STATUS WILL BE IDENTIFIED PROMPTLY AND INTERVENTION INITIATED QUICKLY TO MINIMIZE ASSOCIATED RISKS THROUGHOUT CERTIFICATION PERIOD. Goal Provider Goal - PATIENT WILL REMAIN SAFE IN THE COMMUNITY AND WILL BE FREE OF DANGER TO SELF AND OTHERS THROUGHOUT THE CERTIFICATION PERIOD. Goal Provider Goal - CHANGE IN GENERAL HEALTH STATUS WILL BE IDENTIFIED AND REPORTED TO PHYSICIAN FOR PROMPT INTERVENTION TO MINIMIZE ASSOCIATED RISKS THROUGHOUT CERTIFICATION PERIOD. Goal Provider Goal - PATIENT WILL COMPLY WITH MEDICATION WHEN SKILLED NURSE ADMINISTERS AND PRE-POURS MEDICATION THROUGHOUT CERTIFICATION PERIOD. Goal Provider Goal - PATIENT WILL RECEIVE AIMOVIG ORDERED. PATIENT/CAREGIVER WILL VERBALIZE/DEMONSTRATE KNOWLEDGE OF INJECTION THERAPY BY THE END OF THE CERTIFICATION PERIOD. Goal Provider Goal - MEDICATION WILL BE STORED IN LOCKBOX FOR SAFETY. Goal Provider Goal - SKILLED NURSE PICKED UP AND TRANSPORTED MEDICATIONS FOR SAFETY. Goal Provider Goal - MEDICATION WILL BE AVAILABLE DURING INCLEMENT WEATHER OR EMERGENT EVENT THROUGHOUT CERTIFICATION PERIOD. Progress Notes Progress Notes <paragraph>[Visit Date: 2024 by SHIRLEY BROWN RN]:</paragraph><paragraph>....</paragraph> Encounters Start Date/Time End Date/Time Encounter Type Admission Type Attending [facility] Facility Care Department Encounter ID Discharge Date Discharge Status Discharge Condition Discharge Reason Percent Goals Met 2024-09-21 00:00:00 2024-11-19 00:00:00 Outpatient SHIRLEY [facility] [id number] 33.3 3
[2024-10-02 20:23] LABS: MANUAL DIFF FLAG NO
[2024-10-02 20:24] LABS: Basophils Absolute Auto 0.1 X10*3/uL (0.0-0.2); Eosinophils Absolute Auto 0.1 X10*3/uL (0.0-0.4); Eosinophils Percent Auto 2.9 % (0-4); Hematocrit 31.9 % (37.0-47.0); Hemoglobin 10.8 g/dl (12.0-16.0); Imm Gran Abs Auto 0.01 X10*3/uL (0.00-0.03); Imm Gran Pct Auto 0.2 % (0.0-0.4); Lymphocytes Absolute Auto 1.5 X10*3/uL (1.2-4.9); Lymphocytes Percent Auto 32.2 % (20-40); Mean Corpuscular HGB Conc 33.9 g/dl (31.0-35.0); Mean Corpuscular Hemoglobin 31.6 pg (27.0-33.0); Mean Corpuscular Volume 93.3 fL (80.0-98.0); Mean Platelet Volume 8.8 fL (9.4-12.3); Monocytes Absolute Auto 0.4 X10*3/uL (0.1-1.2); Monocytes Percent Auto 7.7 % (2-11); Neutrophils Absolute Auto 2.7 x10*3/uL (2.0-8.3); Platelet Count 251 X10*3/uL (160-400); Red Blood Count 3.42 X10*6/uL (4.20-5.50); Red Cell Distribution Width 13.5 % (11.0-16.0); White Blood Count 4.8 X10*3/uL (4.8-10.8)
[2024-10-02 20:43] LABS: Alanine Aminotransferase 27 U/L (0-31); Albumin Level 3.3 g/dL (3.5-5.0); Alkaline Phosphatase 143 U/L (39-117); Anion Gap 7 (12-20); Aspartate Amino Transferase 22 U/L (5-31); Bilirubin Total 0.1 mg/dL (0.0-1.0); Blood Urea Nitrogen 14 mg/dL (9-16); Calcium 8.3 mg/dL (8.4-10.2); Carbon Dioxide 23 mmol/L (22-29); Chloride 116 mmol/L (96-108); Creatinine Clr Calc Pharmacy 67.3; Estimated Glomerular Filt Rate > 60; Glucose Random 91 mg/dL (60-115); Potassium 3.8 mmol/L (3.3-5.1); Sodium 142 mmol/L (135-145); Total Protein 5.5 g/dL (6.5-8.0)
[2024-10-02 21:31] LABS: Valproate < 12.5 mcg/mL (50.0-100.0)
--- NOTE | 2024-10-02 22:09 | PC.NURSE ---
Upon assessment, patient not found in the room. Had removed c-collar and PIV. Patient found at the [place] director, had handed her wallet to the registrar, was looking for a ride and then requested to be seen and given her night time medication. Patient placed on video monitoring for safety.
--- NOTE | 2024-10-02 22:16 | ED.SEIZURE ---
HPI - Seizure General Chief Complaint: Seizure Stated Complaint: Fall caused by seizure, + HS, no thinners Time Seen by Provider: 10/02/24 21:52 Source: patient and EMS Mode of arrival: EMS Limitations: other History of Present Illness ED Provider: Dr. Marbella Watters HPI Narrative: Patient comes to the emergency room via ambulance. Patient reports that she had an epileptic seizure. Patient knows known to have narcolepsy. Patient states that she lost consciousness some time while she was on the mole. However, according to EMS, patient was found unresponsive in a bus. Patient does not remember this. Seizure History: Yes Place: Outdoors Related Data Home Medications ?Medication ?Instructions ?Recorded ?Confirmed celecoxib 200 mg capsule 200 mg PO BID 11/09/22 03/15/24 erenumab-aooe 140 mg/mL 140 mg subcut Q4W 11/09/22 03/15/24 subcutaneous auto-injector (Aimovig Autoinjector) fluoxetine 10 mg capsule 10 mg PO QAM 11/09/22 03/15/24 fluoxetine 40 mg capsule 40 mg PO QAM 11/09/22 03/15/24 furosemide 40 mg tablet 40 mg PO BID 11/09/22 03/15/24 gabapentin 300 mg capsule 300 mg PO BID 11/09/22 03/15/24 methylphenidate HCl 20 mg tablet 20 mg PO TID 11/09/22 03/15/24 prednisone 5 mg tablet 5 mg PO DAILY 11/09/22 11/09/22 ziprasidone HCl 60 mg capsule 60 mg PO BID 11/09/22 03/15/24 imipramine HCl 50 mg tablet 50 mg PO Q6H 03/15/24 03/15/24 levetiracetam 750 mg tablet 1,500 mg PO BID 03/15/24 03/15/24 oxcarbazepine 600 mg tablet 600 mg PO BID 03/15/24 03/15/24 prednisone 20 mg tablet 40 mg PO DAILY 03/15/24 03/15/24 Previous Rx's ?Medication ?Instructions ?Recorded levothyroxine 25 mcg capsule 25 mcg PO DAILY 30 days #30 caps 02/13/24 Allergies Allergy/AdvReac Type Severity Reaction Status Date / Time latex [Latex] Allergy Intermediate SWELLING Verified 10/02/24 19:42 ampicillin [Ampicillin] Allergy Mild ITCHING Verified 10/02/24 19:42 potassium chloride Allergy Mild ITCHING Verified 10/02/24 19:42 [Potassium Chloride] Review of Systems Review of Systems: Constitutional : No Weight loss, No Fever, No Chills, No Night Sweats, No Fatigue, No Malaise ENT/Mouth : No Hearing loss, No Ear Pain, No Nasal Congestion, No Sinus Pain, No Hoarseness, No sore throat, No Rhinorrhea, No Swallowing Difficulty Eyes: No Eye Pain, No Swelling, No Redness, No Foreign Body, No Discharge, No Vision Changes Cardiovascular : No Chest Pain, No SOB, No Dyspnea on Exertion, No Orthopnea, No Edema, No Palpitations Respiratory : No Cough, No Sputum, No Wheezing, No Smoke Exposure, No Dyspnea Gastrointestinal : No Nausea, No Vomiting, No Diarrhea, No Constipation, No abdominal Pain, No Hematochezia, No Melena Genitourinary : no irregular bleeding, No Dysuria, No Urinary Frequency, No Hematuria, No Urinary Incontinence, No Urgency, No Flank Pain, No Urinary Flow Changes, No Hesitancy Musculoskeletal : No joint pain, No Myalgias, No Joint Swelling Skin : No Skin Lesions, No rash Neuro : Patient states that she feels a bit weird like she is going to have a seizure. No Weakness, No Numbness, No Paresthesias, No Loss of Consciousness, No Dizziness, No Headache Psych : No Anxiety/Panic, No Depression, No SI/HI/AH/VH, No Social Issues, Heme/Lymph: No Bruising, No Bleeding,No Lymphadenopathy Endocrine : No Polyuria, No Polydipsia, No Temperature Intolerance [facility] Past Medical History Medical History (Updated 10/03/24 @ 05:37 by Marbella Watters MD) Hypothyroidism Restless leg syndrome ADHD Seizure Narcolepsy Social History Social History Alcohol intake: unknown Advance Directives: No Advance Directives Information Provided: No Do you have a plan to hurt others: No Plan Physical Exam Vital Signs: Vital Signs: Last Vital Signs Temp 97.7 F 10/03/24 05:14 Pulse 65 10/03/24 05:14 Resp 12 10/03/24 05:14 BP 110/56 L 10/03/24 05:14 Pulse Ox 98 10/03/24 05:14 O2 Del Method Room Air 10/03/24 05:14 BMI result Body Mass Index 20.9 Const: Other: Appearance: Alert. Oriented X3. No acute distress. Patient's seems a bit confused, bizarre behavior. Patient got up from her room, walked towards the exit, handed over her purse asking the junior legal secretary to call an Uber for her. Eyes: Pupils equal, round and reactive to light. ENT: Pharynx normal. Neck: Normal inspection. Neck supple. No lymph nodes noted. No crepitus CVS: Normal heart rate and rhythm. Pulses normal. Normal S1 and S2 Respiratory: No respiratory distress. Breath sounds normal. No Wheezing. No rales Abdomen: Soft and nontender. No rigidity. No distention. Skin: Skin warm and dry. Normal skin color. Normal skin turgor. Extremities: No lower extremity edema. No Lacerations. No Rash Neuro: Oriented X 3. No motor deficit. No sensory deficit. Moving all extremities. Patient has normal gait, cranial nerves 2-12 grossly intact. However, patient does have slurred speech. I reviewed patient's past ED visits, there is no note of patient having slurred speech at baseline. Psych: calm, cooperative, redirectable Course Course Course Narrative: Patient has slurred speech. I do not see anywhere in her chart that has been documented that she has slurred speech. In all of patient's ED visits, it has been documented the patient has normal speech Patient is confused, unable to give good history, unknown when was the last time the patient was seen well. Patient receiving IV Keppra, PO topiramate, PO ox carbamazepine Patient has a bizarre affect, possibly postictal? Patient is calm and cooperative It is unclear when was the last time that patient was seen well (or if this is her baseline?). CTA of the head and neck pending Medications Administered Discontinued Medications Generic Name Dose Route Start Last Admin Trade Name Freq PRN Reason Stop Dose Admin Levetiracetam 1,500 mg in 100 mls @ 400 mls/hr 10/02/24 22:06 10/02/24 22:47 Keppra IV 10/02/24 22:20 Infused ONCE ONE Infusion Iohexol 70 ml 10/02/24 23:44 10/02/24 23:45 Iohexol 350 Mg/Ml 100 Ml Infus..Btl IV 10/02/24 23:45 70 ml ONCE ONE Administration Lorazepam 1 mg 10/02/24 22:06 10/02/24 22:25 Lorazepam 2 Mg/Ml Vial IVPUSH 10/02/24 22:07 1 mg ONCE ONE Administration Oxcarbazepine 600 mg 10/02/24 22:27 10/02/24 23:06 Oxcarbazepine 300 Mg Tablet PO 10/02/24 22:28 600 mg ONCE ONE Administration Topiramate 50 mg 10/02/24 22:06 10/02/24 22:26 Topiramate 25 Mg Tablet PO 10/02/24 22:07 50 mg ONCE ONE Administration Medical Decision Making Medical Decision Making MDM Narrative: Please see down time notes Labs and imaging have been reviewed, please see down time notes Patient being admitted for TIA versus narcolepsy versus seizures Patient's neurologist is Dr. Anaya I discussed the patient with Dr. Umana, patient being admitted Lab Data 10/02/24 20:15 10/02/24 20:15 Labs: Lab Results 10/02/24 10/02/24 Range/Units 20:15 23:28 WBC 4.8 (4.8-10.8) X10*3/uL RBC 3.42 L (4.20-5.50) X10*6/uL Hgb 10.8 L (12.0-16.0) g/dl Hct 31.9 L (37.0-47.0) % MCV 93.3 (80.0-98.0) fL MCH 31.6 (27.0-33.0) pg MCHC 33.9 (31.0-35.0) g/dl RDW 13.5 (11.0-16.0) % Plt Count 251 (160-400) X10*3/uL MPV 8.8 L (9.4-12.3) fL Immature Gran % (Auto) 0.2 (0.0-0.4) % Neut % (Auto) 56.0 (45-73) % Lymph % (Auto) 32.2 (20-40) % [place] % (Auto) 7.7 (2-11) % Eos % (Auto) 2.9 (0-4) % Baso % (Auto) 1.0 (0-2) % Lymph # (Auto) 1.5 (1.2-4.9) X10*3/uL [place] # (Auto) 0.4 (0.1-1.2) X10*3/uL Eos # (Auto) 0.1 (0.0-0.4) X10*3/uL Baso # (Auto) 0.1 (0.0-0.2) X10*3/uL Abs Immat Gran (auto) 0.01 (0.00-0.03) X10*3/uL Absolute Neuts (auto) 2.7 (2.0-8.3) x10*3/uL Absolute Nucleated RBC 0.000 (0.0-0.012) X10*3/uL Nucleated RBC % (auto) 0.0 (0.0-0.2) /100WBC Hold Blue Top SEE NOTE Sodium 142 (135-145) mmol/L Potassium 3.8 (3.3-5.1) mmol/L Chloride 116 H (96-108) mmol/L Carbon Dioxide 23 (22-29) mmol/L Anion Gap 7 L (12-20) BUN 14 (9-16) mg/dL Creatinine 0.67 (0.5-1.4) mg/dL Estim Creat Clear Calc 67.3 Estimated GFR > 60 Random Glucose 91 (60-115) mg/dL Lactic Acid 1.0 (0.5-2.0) mmol/L Calcium 8.3 L (8.4-10.2) mg/dL Total Bilirubin 0.1 (0.0-1.0) mg/dL AST 22 (5-31) U/L ALT 27 (0-31) U/L Alkaline Phosphatase 143 H (39-117) U/L Total Creatine Kinase 57 (26-140) U/L Total Protein 5.5 L (6.5-8.0) g/dL Albumin 3.3 L (3.5-5.0) g/dL Valproic Acid < 12.5 L (50.0-100.0) mcg/mL Ethyl Alcohol < 10 mg/dL Critical Care Time Critical Care Time Critical Care Time: Yes Total Critical Care Time: 60 Attestation: I have personally provided critical care time. Time includes review of lab data, radiology results, discussion with consultants, and monitoring for potential decompensation. Intervention performed as documented. Discharge Plan Discharge Clinical Impression: Epileptic seizure Patient Disposition: Admitted As Inpatient Prescriptions: No Action fluoxetine 40 mg capsule 40 mg PO QAM prednisone 5 mg tablet 5 mg PO DAILY fluoxetine 10 mg capsule 10 mg PO QAM methylphenidate HCl 20 mg tablet 20 mg PO TID gabapentin 300 mg capsule 300 mg PO BID ziprasidone HCl 60 mg capsule 60 mg PO BID Aimovig Autoinjector 140 mg/mL auto-injector 140 mg subcut Q4W celecoxib 200 mg capsule 200 mg PO BID furosemide 40 mg tablet 40 mg PO BID levothyroxine 25 mcg capsule 25 mcg PO DAILY 30 Days Qty: 30 0RF imipramine HCl 50 mg tablet 50 mg PO Q6H prednisone 20 mg tablet 40 mg PO DAILY oxcarbazepine 600 mg tablet 600 mg PO BID levetiracetam 750 mg tablet 1,500 mg PO BID Print Language: Citizen Of [place]
[2024-10-02] MEDS: LORazepam 2 MG/ML VIAL 1 MG IVPUSH (22:25)
[2024-10-02] MEDS: Topiramate 25 MG TABLET 50 MG PO (22:26)
[2024-10-02] MEDS: levETIRAcetam in NaCl (iso-os) 1,500 MG/100 ML PIGGYBACK 400 MG IV (22:26)
[2024-10-02] MEDS: OXcarbazepine 300 MG TABLET 600 MG PO (23:06)
--- NOTE | 2024-10-02 23:11 | MHC.EDTECH ---
assumed care of pt @[id number]
[2024-10-02 23:19] LABS: Ethanol < 10 mg/dL
--- NOTE | 2024-10-02 23:37 | PC.NURSE ---
This chart writer assumed care of this Pt at 2300. Pt appears to be sleeping, equal, non-labored respirations. Camera in place for safety. IV line place via ultrasound, Pt taken to CT at this time.
[2024-10-02] MEDS: iohexoL 350 MG/ML 100 ML INFUS..BTL 70 ML IV (23:45)
[2024-10-03] VITALS (12 sets, daily range): BP systolic 104–130; BP diastolic 53–66; PULSE 60–78; RESP 12–19; TEMP 36.4–37.2; O2SAT 94–98
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
--- NOTE | 2024-10-03 08:40 | PC.NURSE ---
ASSUMED CARE OF PT THIS AM. SEIZURE PRECAUTIONS REMAINS IN PLACE. NSR ON MONITOR, VS WNL. REPORTS SEIZURE YESTERDAY, HAS BEEN TAKING MEDS REGULARLY. INCREASE IN SEIZURE FREQUENCY LATELY. DENIES SUBSTANCE USE. NO FOCAL NEURO DEFICITS ON BRIEF ASSESSMENT. SPEECH GARBLED, THOUGH SHE DOES NOT HAVE DENTURES IN. ALERT, ORIENTED X 4. USES A CANE, HAS BEEN GETTING HERSELF OOB. URINE SPEC STILL NEEDED. CAMERA IN ROOM FOR SAFETY.
[2024-10-03] MEDS: Enoxaparin Sodium 40 MG/0.4 ML SYRINGE SUBCUT (10:06)
--- NOTE | 2024-10-03 10:20 | PHA.MEDREC ---
Addendum entered by Nir Steele 10/03/24 10:51: reviewed Original Note: Pharmacy Consult ? Medication Reconciliation Pharmacy has completed the medication reconciliation. Spoke to patient to confirm med list. Patient states she is no longer taking Celecoxib 200 mg, Aimocig-autoinjector 140 mg. Patient stated she takes Adderall 20 mg from [facility] however patient filled D-amphetamine salt combo 5 mg on 08/15/24 for only 5 day supply. Called [facility] and they confirmed. patient filled Methylphenidate Hcl 20 mg TID last fill date was 09/28/24 for 21 days. Patient confirmed she only takes Fluoxetine 40 mg daily Not Fluoxetine 10 mg, however claim history says Fluoxetine 40 mg tablets ( last fill date was 04/28/24 for 90 days) to take with Fluoxetine 10 mg (last filled on 08/30/24 for 30 days) for a total dose of 50 mg daily. left on what patient states she takes. Patient also states she is taking Furosemide 40 mg BID, however claims states Furosemide 20 mg daily PRN ( last filled 09/18/24 for 14 days). Last fill date for Furosimide 40 mg BID was 10/31/23 for 30 days. Patient did fill Furosimide 40 mg 07/28/24 for 90 days, however the directions are 40 mg daily. Patient says she is still taking Levothyroxine 25 mcg daily, however last fill date was 02/15/25 for 30 days. Left on med rec because patient states she took it yesterday.
--- NOTE | 2024-10-03 11:05 | PC.NURSE ---
Report received at this time. Taken over care at this time.
--- NOTE | 2024-10-03 11:31 | PC.NURSE ---
Aldair tyler from pharm- [facility], spoke to efrain Loyola.
[2024-10-03] MEDS: predniSONE 5 MG TABLET PO (11:33)
[2024-10-03] MEDS: FLUoxetine HCl 20 MG CAPSULE 40 MG PO (11:33)
[2024-10-03 13:42] LABS: Appearance Urine Clear; Color Urine Yellow; Glucose Urine UA Negative (Negative); Leukocyte Esterase Urine Negative (Negative); Nitrite Urine Positive (Negative); Specific Gravity - Urine 1.025 (1.005-1.025); UMIC TRIGGER UACC YES; Urine Blood Trace (Negative); Urine Ketones Negative (Negative); Urine Protein Negative (Neg-Trace)
[2024-10-03 13:47] LABS: Bacteria Urine 4+ (None Seen); Hyaline Casts Urine 0-2 /LPF (0-2); Squamous Epithelial Cell Urine 0-2 /HPF (0-2); UACC Culture Trigger YES; WBC Urine 0-5 /HPF (0-5)
[2024-10-03 13:55] LABS: Amphetamine Screen Urine Not Detected (Not Detect); Barbiturates, Urine Not Detected (Not Detect); Benzodiazepines Screen Urine Not Detected (Not Detect); Buprenorphine Scr Not Detected (Not Detect); Cannabinoid Screen Urine Not Detected (Not Detect); Cocaine Screen Urine Not Detected (Not Detect); Fentanyl, urine Not Detected (Not Detect); Methadone Screen, Urine Not Detected (Not Detect); Opiate Screen Urine Not Detected (Not Detect); Oxycodone Screen Urine Not Detected (Not Detect); Phencyclidine Screen Urine Not Detected (Not Detect)
--- NOTE | 2024-10-03 13:55 | PC.NURSE ---
Report given to YAA Stone.
--- NOTE | 2024-10-03 14:07 | PC.NURSE ---
MD notified of pt. request for her narcolepsy medication. MD aware and will review medication.
--- NOTE | 2024-10-03 14:17 | PC.NURSE ---
Pt. eating her meal from lunch tray at this time.
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
[2024-10-03] MEDS: Methylphenidate HCl 10 MG TABLET 20 MG PO ×2 (14:35→20:49)
[2024-10-03] MEDS: Gabapentin 400 MG CAPSULE PO ×2 (14:36→20:49)
[2024-10-03] MEDS: Imipramine HCl 50 MG TABLET PO ×2 (16:35→17:25)
--- NOTE | 2024-10-03 16:45 | PC.NURSE ---
Called camera room and informed pt. is moving to room [id number] and notified YAA Hassan that pt. will need a new camera when arriving.
[2024-10-03] MEDS: Acetaminophen 325 MG TABLET 650 MG PO (17:25)
[2024-10-03] MEDS: 0.9 % Sodium Chloride Flush 3 ML SYRINGE IVFLUSH ×2 (17:28→20:49)
[2024-10-03] MEDS: levETIRAcetam 500 MG TABLET 1500 MG PO (20:48)
[2024-10-03] MEDS: OXcarbazepine 300 MG TABLET 600 MG PO (20:48)
[2024-10-03] MEDS: Ziprasidone 20 MG CAPSULE PO (20:49)
[2024-10-03] MEDS: Topiramate 25 MG TABLET 50 MG PO (20:49)
[2024-10-03] MEDS: Furosemide 40 MG TABLET PO (20:49)
--- NOTE | 2024-10-04 | EEG_ITS ---
FINDINGS: The waking background activity consists of an average voltage diffuse 6 to 7 Hz theta that develops over the posterior quadrants intermixed with low voltage fast frequencies anteriorly. Photic stimulation is without activation. Hyperventilation is omitted. IMPRESSION: This is an abnormal EEG due to diffuse background slowing consistent with diffuse encephalopathic process. No epileptiform discharges are seen. MD SHAMEKA Bowers/FADY / [id number]
[2024-10-04] MEDS: Imipramine HCl 50 MG TABLET PO ×5 (00:07→22:26)
[2024-10-04] MEDS: Melatonin 3 MG TABLET 6 MG PO (02:24)
[2024-10-04] MEDS: Acetaminophen 325 MG TABLET 650 MG PO (02:24)
[2024-10-04 03:38] VITALS: BP 105/55; PULSE 72; RESP 16; TEMP 36; O2SAT 96
[2024-10-04] MEDS: Levothyroxine Sodium 25 MCG TABLET PO (05:06)
[2024-10-04 07:08] VITALS: BP 124/58; PULSE 64; RESP 12; TEMP 36.7; O2SAT 98
[2024-10-04] MEDS: levETIRAcetam 500 MG TABLET 1500 MG PO ×2 (08:32→20:15)
[2024-10-04] MEDS: predniSONE 5 MG TABLET PO (08:32)
[2024-10-04] MEDS: Furosemide 40 MG TABLET PO (08:32)
[2024-10-04] MEDS: Topiramate 25 MG TABLET 50 MG PO ×2 (08:32→20:15)
[2024-10-04] MEDS: Methylphenidate HCl 10 MG TABLET 20 MG PO ×3 (08:32→16:42)
[2024-10-04] MEDS: FLUoxetine HCl 20 MG CAPSULE 40 MG PO (08:32)
[2024-10-04] MEDS: Gabapentin 400 MG CAPSULE PO ×3 (08:33→20:15)
[2024-10-04] MEDS: OXcarbazepine 300 MG TABLET 600 MG PO ×2 (08:33→20:14)
[2024-10-04] MEDS: 0.9 % Sodium Chloride Flush 3 ML SYRINGE IVFLUSH ×3 (08:33→22:27)
[2024-10-04] MEDS: Enoxaparin Sodium 40 MG/0.4 ML SYRINGE SUBCUT (08:33)
--- NOTE | 2024-10-04 09:11 | MHC.CM.PN ---
Addendum entered by Clari Adam RN 10/04/24 16:10: CM ATTEMPTED TO CONTACT PT'S HCP/S.O., NO ANSWER AND DETAILED MESSAGE LEFT. Addendum entered by Clari Adam RN 10/04/24 15:13: [facility] OFFERING BED AND SUBMITTING FOR AUTH AT TIME OF THIS ADDENDUM. Original Note: CM ATTEMPTED TO MEET W/PT HOWEVER PT LEAVING UNIT FOR EEG, PER P.T./O.T. PT WILL NEED STR, PT HAS MEDICAID AND WILL NEED TO GO ON MEDICAID BENEFIT SHE IS ADMITTED TO OBS AND WILL NOT HAVE A 3 MIDNIGHT STAY, BROAD LOCAL REFERRAL TO BE PLACED, CM WILL REVISIT W/PT ONCE SHE RETURNS TO UNIT.
[2024-10-04] MEDS: cefuroxime axetiL 250 MG TABLET PO ×2 (11:09→22:26)
[2024-10-04 12:00] VITALS: BP 105/59; PULSE 75; RESP 16; TEMP 37.3; O2SAT 97
[2024-10-04 15:18] VITALS: BP 120/60; PULSE 74; RESP 14; TEMP 37.3; O2SAT 98
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
[2024-10-04 20:00] VITALS: BP 102/52; PULSE 69; RESP 16; TEMP 36.2; O2SAT 94
[2024-10-04] MEDS: Ziprasidone 20 MG CAPSULE PO (20:13)
[2024-10-04 23:18] VITALS: BP 103/53; PULSE 62; RESP 16; TEMP 36.3; O2SAT 94
[2024-10-05 03:35] VITALS: BP 111/52; PULSE 62; RESP 17; TEMP 35.9; O2SAT 94
[2024-10-05] MEDS: Levothyroxine Sodium 25 MCG TABLET PO (05:32)
[2024-10-05] MEDS: Imipramine HCl 50 MG TABLET PO ×4 (05:32→22:30)
[2024-10-05 08:00] VITALS: BP 128/64; PULSE 67; RESP 16; TEMP 36.7; O2SAT 99
[2024-10-05] MEDS: levETIRAcetam 500 MG TABLET 1500 MG PO ×2 (08:11→20:46)
[2024-10-05] MEDS: predniSONE 5 MG TABLET PO (08:11)
[2024-10-05] MEDS: OXcarbazepine 300 MG TABLET 600 MG PO ×2 (08:11→20:45)
[2024-10-05] MEDS: Furosemide 40 MG TABLET PO ×2 (08:11→20:45)
[2024-10-05] MEDS: Enoxaparin Sodium 40 MG/0.4 ML SYRINGE SUBCUT (08:12)
[2024-10-05] MEDS: FLUoxetine HCl 20 MG CAPSULE 40 MG PO (08:12)
[2024-10-05] MEDS: Methylphenidate HCl 10 MG TABLET 20 MG PO ×3 (08:12→20:46)
[2024-10-05] MEDS: Topiramate 25 MG TABLET 50 MG PO ×2 (08:12→20:46)
[2024-10-05] MEDS: Gabapentin 400 MG CAPSULE PO ×3 (08:12→20:45)
[2024-10-05] MEDS: 0.9 % Sodium Chloride Flush 3 ML SYRINGE IVFLUSH ×2 (08:17→15:16)
--- NOTE | 2024-10-05 09:40 | MHC.CM.PN ---
ENEDINA met with pt. today to ask if she is willing to go to STR at [facility], she said that she is and asked questions about it, which CM answered, the STR is pursuing ins. auth, anticipate DC to there on Monday.
[2024-10-05] MEDS: Sulfamethox/Trimeth 800/160 TABLET 1 TAB PO ×2 (10:58→20:45)
[2024-10-05] MEDS: Acetaminophen 325 MG TABLET 650 MG PO (11:00)
[2024-10-05 11:48] VITALS: BP 112/63; PULSE 74; RESP 20; TEMP 36.8; O2SAT 96
[2024-10-05 15:07] VITALS: BP 133/69; PULSE 79; RESP 18; TEMP 36.8; O2SAT 96
[2024-10-05 19:51] VITALS: BP 127/60; PULSE 72; RESP 16; TEMP 36.6; O2SAT 95
[2024-10-05] MEDS: Ziprasidone 20 MG CAPSULE PO (20:45)
[2024-10-05 23:41] VITALS: BP 110/56; PULSE 73; RESP 14; TEMP 36.7; O2SAT 95
[2024-10-06] MEDS: Acetaminophen 325 MG TABLET 650 MG PO (00:15)
[2024-10-06] MEDS: Melatonin 3 MG TABLET 6 MG PO (00:16)
[2024-10-06] MEDS: 0.9 % Sodium Chloride Flush 3 ML SYRINGE IVFLUSH ×3 (00:17→20:25)
[2024-10-06 03:38] VITALS: BP 104/55; PULSE 60; RESP 16; TEMP 36.4; O2SAT 93
[2024-10-06] MEDS: Imipramine HCl 50 MG TABLET PO ×4 (05:07→22:53)
[2024-10-06] MEDS: Levothyroxine Sodium 25 MCG TABLET PO (05:07)
[2024-10-06] MEDS: FLUoxetine HCl 20 MG CAPSULE 40 MG PO (07:36)
[2024-10-06] MEDS: Methylphenidate HCl 10 MG TABLET 20 MG PO ×3 (07:36→20:23)
[2024-10-06] MEDS: Topiramate 25 MG TABLET 50 MG PO ×2 (07:36→20:24)
[2024-10-06] MEDS: levETIRAcetam 500 MG TABLET 1500 MG PO ×2 (07:37→20:24)
[2024-10-06] MEDS: Gabapentin 400 MG CAPSULE PO ×3 (07:37→20:24)
[2024-10-06] MEDS: predniSONE 5 MG TABLET PO (07:37)
[2024-10-06] MEDS: OXcarbazepine 300 MG TABLET 600 MG PO ×2 (07:37→20:24)
[2024-10-06] MEDS: Furosemide 40 MG TABLET PO ×2 (07:37→20:24)
[2024-10-06 08:00] VITALS: BP 99/58; PULSE 88; RESP 20; O2SAT 97
--- NOTE | 2024-10-06 09:45 | MHC.CM.PN ---
Cm met with pt to discuee DCP, she is now declining to go to [facility], she informed CM that she has [facility] for that sees her, referral send via careport with request to add PT. Referral submitted to [facility] for home care services. Pt will need assistance with transportation home, will use Lyft.
[2024-10-06] MEDS: Enoxaparin Sodium 40 MG/0.4 ML SYRINGE SUBCUT (10:00)
[2024-10-06] MEDS: Sulfamethox/Trimeth 800/160 TABLET 1 TAB PO ×2 (10:00→20:25)
[2024-10-06] MEDS: Butalb/Acetamin/Caff 50/325/40 TABLET 1 TAB PO (10:49)
--- NOTE | 2024-10-06 11:18 | P.F2F_ITS ---
Service Date Service Date: 10/06/24 Encounter Date of encounter: 10/06/24 Reasons for Services Signs and symptoms assessed: seizure, passing out Reason for correction: medication management, medication treatment and teach disease management Reason for physical therapy: home safety and mobility, therapeutic exercises and energy conservation Homebound: Leaving the home is medically contraindicated at this time without the asist of a device and/or another person due th the listed conditions above and below. Reason homebound: unsteady gait / fall risk and weakness related to hospital stay Homebound supporting statement: homebound due to weakness from hospitalization, passing out from probable seizure, at risk for falls and therefore needs the assistance of another person Certification: Based on the above findings, I certify that this patient is confined to the home and needs intermittent correction care, physical therapy and/or speech therapy, or continues to need occupational therapy. The patient is under my care, and I have initiated the establishment of the plan of care. The patient will be followed by a physician who will periodically review the plan of care. Time Spent With Patient Time: Total time managing care of this patient today ____ minutes.
[2024-10-06 11:26] VITALS: BP 147/73; PULSE 72; RESP 22; TEMP 36.7; O2SAT 97
[2024-10-06 15:07] VITALS: BP 133/67; PULSE 90; RESP 14; TEMP 36.7; O2SAT 96
[2024-10-06 19:49] VITALS: BP 113/57; PULSE 74; RESP 14; TEMP 36.6; O2SAT 96
[2024-10-06] MEDS: Ziprasidone 20 MG CAPSULE PO (20:24)
[2024-10-06 20:38] LABS: Levetiracetam Keppra 64.5 mcg/mL (6.0-46.0)
[2024-10-06 23:56] VITALS: BP 109/59; PULSE 73; RESP 16; TEMP 36.9; O2SAT 94
[2024-10-07] MEDS: Melatonin 3 MG TABLET 6 MG PO (00:02)
[2024-10-07 04:00] VITALS: BP 97/52; PULSE 89; RESP 16; TEMP 36.5; O2SAT 95
[2024-10-07] MEDS: Levothyroxine Sodium 25 MCG TABLET PO (05:06)
[2024-10-07] MEDS: Imipramine HCl 50 MG TABLET PO ×2 (05:06→10:40)
[2024-10-07 07:19] VITALS: BP 110/59; PULSE 67; RESP 19; TEMP 36.4; O2SAT 94
[2024-10-07] MEDS: Furosemide 40 MG TABLET PO (08:37)
[2024-10-07] MEDS: predniSONE 5 MG TABLET PO (08:40)
[2024-10-07] MEDS: Methylphenidate HCl 10 MG TABLET 20 MG PO ×2 (08:40→13:59)
[2024-10-07] MEDS: OXcarbazepine 300 MG TABLET 600 MG PO (08:40)
[2024-10-07] MEDS: Gabapentin 400 MG CAPSULE PO ×2 (08:40→13:59)
[2024-10-07] MEDS: FLUoxetine HCl 20 MG CAPSULE 40 MG PO (08:40)
[2024-10-07] MEDS: levETIRAcetam 500 MG TABLET 1500 MG PO (08:41)
[2024-10-07] MEDS: Topiramate 25 MG TABLET 50 MG PO (08:41)
[2024-10-07] MEDS: Acetaminophen 325 MG TABLET 650 MG PO (08:41)
[2024-10-07] MEDS: Enoxaparin Sodium 40 MG/0.4 ML SYRINGE SUBCUT (08:42)
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
[2024-10-07] MEDS: 0.9 % Sodium Chloride Flush 3 ML SYRINGE IVFLUSH (08:46)
--- NOTE | 2024-10-07 10:26 | MHC.CM.PN ---
Addendum entered by Amie Diana 10/07/24 10:28: CORRECTION: PT WILL NEED TRANSPORT ARRANGED Original Note: PT WILL DC HOME TODAY WITH [facility]TION OF [facility] S/O TO TRANSPORT
[2024-10-07] MEDS: Sulfamethox/Trimeth 800/160 TABLET 1 TAB PO (10:40)
--- NOTE | 2024-10-07 10:58 | MHC.CM.PN ---
CM MET WITH PT TO DISCUSS DC PLANNING SHE SAYS SHE WILL BE GOING TO HER BOYFRIENDS HOME AND THEY WILL ASSIST EACH OTHER NEEDED SHE SAYS DELGADO POLLO HAS BEEN SEEING HER AT HIS HOME DURING THE WEEK AND HER HOME ON THE WEEKEND SHE STATES SHE DOES NOT HAVE TRANSPORT HOME, PER DISCUSSION, BLS TRANSPORT WAS ARRANGED FOR 1400 HOURS WITH [facility]
[2024-10-07 11:04] VITALS: BP 113/66; PULSE 73; RESP 18; TEMP 36.3; O2SAT 98
== END 2024-10-07 15:09 | disposition home health service (06) ==
LOC: HO.ED 10-03 05:37 → HO.EDOVER 10-03 09:19 → HO.IMC 10-03 15:06
PROVIDERS: Admitting Provider Student in an Organized Health Care Education/Training Program; Emergency Provider Emergency Medicine; PCP Internal Medicine; Visit Provider Internal Medicine
DX: G40.909 Epilepsy, unspecified, not intractable, without status epilepticus (principal); R40.4 Transient alteration of awareness; G47.411 Narcolepsy with cataplexy; E03.9 Hypothyroidism, unspecified; G31.09 Other frontotemporal neurocognitive disorder; F02.80 Dementia in other diseases classified elsewhere, unspecified severity, without behavioral disturbance, psychotic disturbance, mood disturbance, and anxiety; N39.0 Urinary tract infection, site not specified; Z79.899 Other long term (current) drug therapy
CPT/HCPCS: 36415; 70496; 70498; 80053; 80164; 80177; 80307; 81001; 82550; 83605; 85025; 87086; 87088; 87186; 93005; 95816; 96365; 96372; 96375; 97162; 97166; 99222; 99285; J1650; J1953; J2060; Q9967

== ENCOUNTER → 2024-10-02 19:48 | Outpatient (BNV) | payer MEDICARE, OTHER, MEDICAID, SELFPAY | PROVIDERS: Admitting Provider Student in an Organized Health Care Education/Training Program; Emergency Provider Emergency Medicine; Visit Provider Internal Medicine Cardiovascular Disease | DX: R94.31 Abnormal electrocardiogram [ECG] [EKG] (principal); R56.9 Unspecified convulsions | CPT/HCPCS: 93010 ==

== ENCOUNTER → 2024-10-02 22:07 | Outpatient (BNV) | payer OTHER, MEDICAID, SELFPAY | PROVIDERS: Emergency Provider Emergency Medicine; Visit Provider Radiology Diagnostic Radiology | DX: G40.89 Other seizures (principal); R47.81 Slurred speech | CPT/HCPCS: 70496; 70498 ==

== ENCOUNTER → 2024-10-03 09:09 | Outpatient (BNV) | payer MEDICARE, OTHER, MEDICAID, SELFPAY | PROVIDERS: Admitting Provider Student in an Organized Health Care Education/Training Program; Emergency Provider Emergency Medicine; Visit Provider Student in an Organized Health Care Education/Training Program | DX: G40.909 Epilepsy, unspecified, not intractable, without status epilepticus (principal); R40.4 Transient alteration of awareness | CPT/HCPCS: 99232 ==

== ENCOUNTER → 2024-10-03 09:09 | Outpatient (BNV) | payer MEDICARE, OTHER, MEDICAID, SELFPAY | PROVIDERS: Admitting Provider Student in an Organized Health Care Education/Training Program; Emergency Provider Emergency Medicine; Visit Provider Psychiatry & Neurology Neurology | DX: R40.4 Transient alteration of awareness (principal); G31.09 Other frontotemporal neurocognitive disorder; F02.80 Dementia in other diseases classified elsewhere, unspecified severity, without behavioral disturbance, psychotic disturbance, mood disturbance, and anxiety | CPT/HCPCS: 99222 ==

== ENCOUNTER 2024-11-04 17:54 | Emergency (ER) | payer MEDICARE, MEDICAID, SELFPAY ==
[2024-11-04 18:16] VITALS: BP 106/74; PULSE 91; RESP 18; TEMP 36.8; O2SAT 97; BMI 22.6
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
[2024-11-04 19:06] VITALS: BP 106/74
[2024-11-04] MEDS: Methylphenidate HCl 10 MG TABLET 20 MG PO (19:06)
[2024-11-04] MEDS: OXcarbazepine 300 MG TABLET 600 MG PO (19:06)
[2024-11-04] MEDS: levETIRAcetam 250 MG TABLET PO (19:06)
[2024-11-04] MEDS: Gabapentin 400 MG CAPSULE PO (19:06)
[2024-11-04] MEDS: Dextroamphetamine/Amphetamine XR 5 MG CAP.ER.24H PO (19:06)
[2024-11-04] MEDS: levETIRAcetam 500 MG TABLET PO (19:06)
[2024-11-04] MEDS: Furosemide 40 MG TABLET PO (19:06)
[2024-11-04] MEDS: Topiramate 25 MG TABLET 50 MG PO (19:06)
[2024-11-04] MEDS: Celecoxib 200 MG CAPSULE PO (19:23)
[2024-11-04] MEDS: Ziprasidone 20 MG CAPSULE PO (19:23)
[2024-11-04] MEDS: predniSONE 5 MG TABLET PO (19:23)
[2024-11-04 19:26] VITALS: BP 106/74; PULSE 80; RESP 16; TEMP 36.6
== END 2024-11-04 19:26 | disposition home or self-care (01) ==
PROVIDERS: Emergency Provider Emergency Medicine
DX: G40.802 Other epilepsy, not intractable, without status epilepticus (principal); G31.09 Other frontotemporal neurocognitive disorder
CPT/HCPCS: 99282

== ENCOUNTER 2024-11-04 21:43 | Emergency (ER) | payer MEDICARE, MEDICAID, SELFPAY ==
[2024-11-04 21:54] VITALS: BP 108/54; PULSE 74; RESP 18; TEMP 36.6; O2SAT 98; BMI 22.1
--- NOTE | 2024-11-04 22:05 | PC.NURSE ---
called pt significant other- no answer left voicemail to call department
--- NOTE | 2024-11-05 01:27 | ED.GENADULT ---
HPI - General Adult General Chief complaint: Extremity Injury, Lower Stated complaint: Leg weakness Time Seen by Provider: 11/05/24 01:27 Source: patient Mode of arrival: ambulatory Limitations: no limitations History of Present Illness ED Provider: DR. Carvajal HPI narrative: 69-year-old female was seen earlier today for medications refill patient could not find a ride to go home decided to come back to the ED, patient stated that she need a ride to go home otherwise has no complaint currently. Related Data Home Medications ?Medication ?Instructions ?Recorded ?Confirmed fluoxetine 10 mg capsule 10 mg PO DAILY 11/09/22 03/15/24 fluoxetine 40 mg capsule 40 mg PO DAILY 11/09/22 10/03/24 prednisone 5 mg tablet 5 mg PO DAILY 11/09/22 10/03/24 imipramine HCl 50 mg tablet 50 mg PO Q6H 03/15/24 10/03/24 levetiracetam 750 mg tablet 1,500 mg PO BID 03/15/24 10/03/24 oxcarbazepine 600 mg tablet 600 mg PO BID 03/15/24 10/03/24 acetaminophen 500 mg tablet 1,000 mg PO Q6H PRN pain 10/03/24 10/03/24 furosemide 40 mg tablet 40 mg PO BID swelling 10/03/24 10/03/24 gabapentin 400 mg capsule 400 mg PO TID 10/03/24 10/03/24 levothyroxine 25 mcg capsule 25 mcg PO DAILY@0600 10/03/24 10/03/24 topiramate 50 mg tablet 50 mg PO BID 10/03/24 10/03/24 ziprasidone HCl 20 mg capsule 20 mg PO BEDTIME 10/03/24 10/03/24 Previous Rx's ?Medication ?Instructions ?Recorded methylphenidate HCl 20 mg tablet 20 mg PO TID #21 tabs 10/06/24 sulfamethoxazole 800 1 tab PO Q12H #6 tabs 10/06/24 mg-trimethoprim 160 mg tablet celecoxib 200 mg capsule 200 mg PO BID #14 caps 11/04/24 dextroamphetamine-amphetamine 5 mg 5 mg PO BID #14 tabs 11/04/24 tablet furosemide 40 mg tablet 40 mg PO DAILY #7 tabs 11/04/24 gabapentin 400 mg capsule 400 mg PO TID #21 caps 11/04/24 levetiracetam 750 mg tablet 750 mg PO Q12H #14 tabs 11/04/24 (Keppra) methylphenidate HCl 20 mg tablet 20 mg PO Q8H #21 tabs 11/04/24 oxcarbazepine 600 mg tablet 600 mg PO BID #14 tabs 11/04/24 prednisone 5 mg tablet 5 mg PO DAILY #7 tabs 11/04/24 topiramate 50 mg tablet 50 mg PO BID #14 tabs 11/04/24 ziprasidone HCl 20 mg capsule 20 mg PO DAILY #7 caps 11/04/24 Allergies Allergy/AdvReac Type Severity Reaction Status Date / Time latex [Latex] Allergy Intermediate SWELLING Verified 11/04/24 21:56 ampicillin [Ampicillin] Allergy Mild ITCHING Verified 11/04/24 21:56 potassium chloride Allergy Mild ITCHING Verified 11/04/24 21:56 [Potassium Chloride] Review of Systems Review of Systems: All other systems are reviewed and are negative Constitutional: Reports as per HPI and Reports no additional constitutional complaints Eyes: Reports as per HPI and Reports no additional eye complaints Reports system reviewed and no additional complaints, except as documented Cardiovascular: Reports as per HPI and Reports no additional cardiovascular complaints Respiratory: Reports as per HPI and Reports no additional respiratory complaints Gastrointestinal: Reports as per HPI and Reports no additional gastrointestinal complaints Genitourinary: Reports no additional female genitourinary complaints Musculoskeletal: Reports no additional musculoskeletal complaints Skin/Breast: Reports system reviewed and no additional complaints, except as docu Psychiatric: Reports no additional psychiatric complaints Endocrine: Reports no additional endocrine complaints Hematologic/Lymphatic: Reports no additional hematologic/lymphatic complaints Allergic/Immunologic: Reports no additional allergic/immunologic complaints Reports system reviewed and no additional complaints, except as documented and Reports Abnormal speech present [facility] Past Medical History Medical History Epileptic seizure Hypothyroidism Restless leg syndrome ADHD Seizure Narcolepsy Social History Social History Household Members: None Housing: Condominium Do you presently have visiting nurse or other home services: Yes Alcohol intake: unknown Patient Tobacco Use Status: Never used Tobacco Smoked in Last 30 Days: No Use of substances other than those prescribed or required for medical reasons: No Advance Directives: No Advance Directives Information Provided: No Do you have a plan to hurt others: No Plan service: No Physical Exam ED Vital Signs: Vital Signs - 24 hr 11/04/24 21:54 Temperature 97.9 F Pulse Rate 74 Respiratory Rate 18 Blood Pressure 108/54 L Pulse Oximetry 98 Oxygen Delivery Method Room Air BMI result Body Mass Index 22.1 Vital signs have been reviewed and appear to be correct. Blood pressure elevated. Heart rate normal. Respiratory rate normal. Temperature normal. Oxygen saturation normal. Appearance: Alert. Oriented X3. No acute distress. Head: Normal external exam. Normocephalic. Atraumatic. No Benítez signs noted. No raccoon eyes noted Eyes: PERRLA. EOMI. Conjunctiva and sclera normal. Eyelids normal. ENT: TM's Normal. Pharynx normal. Uvula midline. Moist mucous membranes. No trismus noted. No drooling noted. No muffled voice noted. Neck: Normal inspection. Neck supple. FROM. No adenopathy. Thyroid Normal. No meningeal signs. No neck mass noted. CVS: Normal heart rate and rhythm. Heart sound normal. No murmurs noted. Pulses normal throughout. Respiratory: No respiratory distress. Painless inspiration. Breath sounds normal. No wheezes/rales/rhonchi noted. Chest nontender. No accessory muscle usage noted or decreased air movement noted. Abdomen: Soft and nontender. Bowel sounds normal in all 4 quadrants. No distention noted. No organomegaly noted. No visible injury noted. Back: No CVA tenderness. Full range of motion noted. Skin: Skin warm and dry. Normal skin color. Normal skin turgor. No rashes/lesions/lacerations noted. Extremities: No lower extremity edema. Extremities exhibit normal range of motion. Extremities nontender. Neuro: Oriented X 3. Cranial nerve exam: II-XII are grossly intact No motor deficit. No sensory deficit. Reflexes normal. Course Reevaluation(s) Reevaluation #1: Epilepsy, seeking refill of her medications. No SI, no HI, no hallucination. Will arrange for transportation to home. Time: 01:37 Medical Decision Making Differential Diagnosis Differential Diagnoses: The differential diagnosis associated with the presentation includes (Medical screening exam.) Admission/Observation Consideration of admission/observation: Escalation of care including admission/observation considered Discharge Plan Discharge Clinical Impression: Encounter for medical screening examination Patient Disposition: Home, Self-Care Instructions: Normal Exam (ED) Prescriptions: No Action fluoxetine 40 mg capsule 40 mg PO DAILY prednisone 5 mg tablet 5 mg PO DAILY fluoxetine 10 mg capsule 10 mg PO DAILY imipramine HCl 50 mg tablet 50 mg PO Q6H oxcarbazepine 600 mg tablet 600 mg PO BID levetiracetam 750 mg tablet 1,500 mg PO BID gabapentin 400 mg capsule 400 mg PO TID acetaminophen 500 mg tablet 1,000 mg PO Q6H PRN (Reason: pain) ziprasidone HCl 20 mg capsule 20 mg PO BEDTIME topiramate 50 mg tablet 50 mg PO BID furosemide 40 mg tablet 40 mg PO BID levothyroxine 25 mcg capsule 25 mcg PO DAILY@0600 sulfamethoxazole-trimethoprim 800-160 mg Tablet 1 tab PO Q12H Qty: 6 0RF methylphenidate HCl 20 mg tablet 20 mg PO TID Qty: 21 0RF ziprasidone HCl 20 mg capsule 20 mg PO DAILY Qty: 7 0RF Rx Instructions: give with food (meal/snack) celecoxib 200 mg capsule 200 mg PO BID Qty: 14 0RF prednisone 5 mg tablet 5 mg PO DAILY Qty: 7 0RF furosemide 40 mg tablet 40 mg PO DAILY Qty: 7 0RF methylphenidate HCl 20 mg tablet 20 mg PO Q8H Qty: 21 0RF Rx Instructions: Partial Fill upon patient request. dextroamphetamine-amphetamine 5 mg tablet 5 mg PO BID Qty: 14 0RF Rx Instructions: administer doses at least 4-6 hours apart; Partial Fill upon patient request. oxcarbazepine 600 mg tablet 600 mg PO BID Qty: 14 0RF topiramate 50 mg tablet 50 mg PO BID Qty: 14 0RF levetiracetam [Keppra] 750 mg tablet 750 mg PO Q12H Qty: 14 0RF gabapentin 400 mg capsule 400 mg PO TID Qty: 21 0RF Print Language: Choose Not To Answer
[2024-11-05 01:57] VITALS: BP 100/56; PULSE 75; RESP 18; TEMP 36.6; O2SAT 98
--- NOTE | 2024-11-05 01:59 | PC.NURSE ---
Reviewed discharge instruction with pt pt verbalized understanding, no sign of distress, pt will be waiting for the bus in the lobby.
[2024-11-05 02:01] VITALS: BP 100/56; PULSE 75; RESP 18; TEMP 36.6; O2SAT 98
== END 2024-11-05 02:02 | disposition home or self-care (01) ==
PROVIDERS: Emergency Provider Emergency Medicine
DX: Z76.0 Encounter for issue of repeat prescription (principal); G40.909 Epilepsy, unspecified, not intractable, without status epilepticus
CPT/HCPCS: 99282; 99283; 99284

== ENCOUNTER 2025-01-06 18:59 | Emergency (ER) | payer MEDICARE, SELFPAY ==
[2025-01-06 19:10] VITALS: BP 93/53; PULSE 82; RESP 18; TEMP 36.4; O2SAT 96; BMI 22.8
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
[2025-01-06 22:15] VITALS: BP 120/58; PULSE 61; RESP 18; TEMP 36.5; O2SAT 96
[2025-01-07 01:19] VITALS: BP 115/56; PULSE 64; RESP 16; TEMP 36.3; O2SAT 98
[2025-01-07 05:29] VITALS: BP 96/50; PULSE 56; RESP 16; TEMP 36.2; O2SAT 96
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
[2025-01-07 08:24] VITALS: BP 114/59; PULSE 68; RESP 12; TEMP 36.1; O2SAT 96
[2025-01-07 09:42] LABS: Appearance Urine Cloudy; Glucose Urine UA Negative (Negative); PH 6.5 (5.0-9.0); Specific Gravity - Urine 1.025 (1.005-1.025); UMIC TRIGGER UACC YES
[2025-01-07 09:59] LABS: UACC Culture Trigger YES
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
[2025-01-07 12:15] LABS: Glucose, Whole Blood 89 mg/dL (60-115)
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
[2025-01-07] MEDS: Potassium Chloride ER 10 MEQ TABLET.ER PO (13:30)
[2025-01-07 14:34] VITALS: BP 103/53; PULSE 61; RESP 13; TEMP 36.6; O2SAT 96
[2025-01-07 17:21] VITALS: BP 103/53; PULSE 61; RESP 13; TEMP 36.6; O2SAT 96
== END 2025-01-07 17:22 | disposition home or self-care (01) ==
PROVIDERS: Emergency Provider Emergency Medicine; PCP Internal Medicine
DX: R51.9 Headache, unspecified (principal); G47.419 Narcolepsy without cataplexy; Z76.0 Encounter for issue of repeat prescription; E03.9 Hypothyroidism, unspecified; G40.909 Epilepsy, unspecified, not intractable, without status epilepticus; Z79.899 Other long term (current) drug therapy
CPT/HCPCS: 81001; 82947; 87086; 87088; 87186; 99283; 99284

== ENCOUNTER 2025-03-06 10:09 | Emergency (ER) | payer MEDICARE, SELFPAY ==
--- NOTE | ~2025-03-06 | CT_ITS ---
EXAMINATION: CT CERVICAL SPINE WITHOUT CONTRAST CLINICAL INFORMATION: Fall with head trauma, multiple COMPARISON: None available. TECHNIQUE: Axial imaging was performed from the base of the skull through T2 without IV contrast. Coronal and sagittal reformatted images were generated from the original axial data set. ALARA: The examination used one or more of the following radiation dose reduction techniques: Automated exposure control, iterative reconstruction, and/or adjustment of mA and/or KV. DLP: 299 mGY*cm FINDINGS: There is no prevertebral soft tissue edema. There is straightening of cervical lordosis. There is subtle anterolisthesis at C4-5. There are Schmorl's node involving superior endplate at C7, T1, and T2. There is moderate disc space narrowing at C4-5 and C5-6 with endplate osteophytes greatest at C5-6. Facet joint space narrowing, sclerosis, vacuum phenomena, and osteophytes are most pronounced in the upper cervical spine, greater on the left. No fracture lines are identified. Soft tissues and lung apexes are unremarkable. CT/CT cervical spine wo IV con IMPRESSION: No acute abnormality. Multilevel degenerative disc disease and facet osteoarthritis. Electronically signed by: Jesu Nguyen MD 03/06/2025 01:27 PM EDT RP
--- NOTE | ~2025-03-06 | CT_ITS ---
EXAMINATION: CT HEAD WITHOUT CONTRAST CLINICAL INFORMATION: Fall with head trauma, multiple COMPARISON: October 02, 2024 TECHNIQUE: Contiguous axial imaging was performed from the skull base to vertex without intravenous administration of contrast. This CT examination was performed using dose optimization techniques as appropriate, variously including the following: *Automated exposure control *Adjustment of mA and/or kV according to patient size (this includes techniques or standardized protocols for targeted exams where dose is matched to indication/reason for exam; i.e. extremities or head) *Use of iterative reconstruction technique DLP: 613 mGY*cm FINDINGS: There is no acute ischemic change. There is no intracranial hemorrhage. There is no mass-effect or midline shift. Basal cisterns and ventricles are within normal limits for age/cerebral volume. Orbits are symmetrical and unremarkable. Paranasal sinuses and mastoid air cells are pneumatized. There are no bony abnormalities. CT/CT head/brain wo IV con IMPRESSION: No acute intracranial abnormality. Electronically signed by: Jesu Nguyen MD 03/06/2025 01:32 PM EDT
--- NOTE | ~2025-03-06 | XR_ITS ---
EXAMINATION: XR LUMBOSACRAL SPINE CLINICAL INFORMATION: fall, lower back pain COMPARISON: None available. TECHNIQUE: Three views of the lumbosacral spine. FINDINGS: There is scattered small bowel gas and moderate stool in the visible transverse colon. There is mild dextroscoliosis. There are 5 nonrib-bearing lumbar segments. There is stable mild compression fracture of the superior endplate of L1. Moderate to severe multilevel degenerative disc disease, facet osteoarthritis, and abutment of spinous processes has mildly progressed since the prior study. L3-4 demonstrates mild grade 1 retrolisthesis, increased since the prior. XR/XR lumbar spine 2-3V IMPRESSION: Stable superior endplate compression fracture L1. Moderately severe multilevel degenerative disc disease and facet osteoarthritis as progressed since the prior study. Electronically signed by: Jesu Nguyen MD 03/06/2025 11:22 AM EDT
--- NOTE | ~2025-03-06 | XR_ITS ---
EXAMINATION: XR THORACIC SPINE 3 VIEWS HISTORY: falls, midline ecchymosis/tenderness COMPARISON: There are no prior studies available for comparison. FINDINGS: AP and lateral views of the thoracic spine are submitted. Osseous mineralization is normal. The vertebral bodies maintain normal height and alignment without evidence of fracture or subluxation. There is diffuse moderate degenerative disc disease with disc space narrowing and osteophyte formation. The visualized paraspinal soft tissues are unremarkable. XR/XR thoracic spine 3V IMPRESSION: Diffuse moderate degenerative disc disease. Electronically signed by: Abraham Fitch MD 03/06/2025 01:23 PM EDT
--- NOTE | ~2025-03-06 | XR_ITS ---
EXAMINATION: XR HAND 1-2 VIEWS LEFT HISTORY: fall, left hand pain/bruising COMPARISON: There are no prior studies available for comparison. FINDINGS: Three views of the left hand are submitted. The bones are osteopenic. There is no fracture or dislocation. There is severe osteoarthritis of the 1st carpometacarpal joint, with joint space narrowing and osteophyte formation. There is moderate to severe osteoarthritis of the DIP and PIP joints as well as the 1st carpometacarpal joint and interphalangeal joint of the thumb. The soft tissues are unremarkable. XR/XR hand LT 2V IMPRESSION: Osteopenia. 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 No evidence of fracture. Electronically signed by: Abraham Fitch MD 03/06/2025 11:14 AM EDT
[2025-03-06 10:12] VITALS: BP 121/58; PULSE 71; RESP 18; TEMP 36.4; O2SAT 97; BMI 25.7
--- NOTE | 2025-03-06 12:06 | ED.GENADULT ---
HPI - General Adult General Chief complaint: Fall Stated complaint: Pain on hip and back Time Seen by Provider: 03/06/25 11:58 Source: patient, RN notes reviewed and old records reviewed Mode of arrival: ambulatory History of Present Illness ED Provider: Roseann HPI narrative: Patient is a 70-year-old female with history of narcolepsy on Ritalin, cataplexy, epilepsy, and migraines presenting to the ED with complaint of lower back pain, left hand pain after multiple recent falls. She states that she slipped down a few stairs and initially hit the back of her head and then her head fell forward and she struck the front of her head. She denies loss of consciousness, is not anticoagulated. She has ecchymosis to her forehead. States that she has been out of her Ritalin for the past few days and requesting to have this immediately, asking repeatedly. States that she can not recall the name of her neurologist but that they reside in [place] but have still been filling her Keppra prescription. States she has all the rest of her other medications. MD complaint: back pain Related Data Home Medications ?Medication ?Instructions ?Recorded ?Confirmed fluoxetine 10 mg capsule 10 mg PO DAILY 11/09/22 03/07/25 prednisone 5 mg tablet 5 mg PO DAILY 11/09/22 03/07/25 imipramine HCl 50 mg tablet 50 mg PO TID 03/15/24 03/07/25 levetiracetam 750 mg tablet 1,500 mg PO BID 03/15/24 03/07/25 oxcarbazepine 600 mg tablet 600 mg PO BID 03/15/24 03/07/25 furosemide 40 mg tablet 40 mg PO DAILY swelling 10/03/24 03/07/25 gabapentin 400 mg capsule 400 mg PO TID 10/03/24 03/07/25 topiramate 50 mg tablet 50 mg PO BID 10/03/24 03/07/25 erenumab-aooe 70 mg/mL 70 mg subcut QMONTH 03/07/25 03/07/25 subcutaneous auto-injector (Aimovig Autoinjector) ziprasidone HCl 20 mg capsule 20 mg PO DAILY@1700 03/07/25 03/07/25 Previous Rx's ?Medication ?Instructions ?Recorded methylphenidate HCl 20 mg tablet 20 mg PO TID #21 tabs 10/06/24 celecoxib 200 mg capsule 200 mg PO BID #14 caps 11/04/24 levofloxacin 750 mg tablet 750 mg PO DAILY #2 tabs 03/11/25 Allergies Allergy/AdvReac Type Severity Reaction Status Date / Time latex (Latex) Allergy Intermediate SWELLING Verified 03/06/25 10:14 ampicillin (Ampicillin) Allergy Mild ITCHING Verified 03/06/25 10:14 potassium chloride Allergy Mild ITCHING Verified 03/06/25 10:14 (Potassium Chloride) PMFSH Past Medical History Medical History Epileptic seizure Hypothyroidism Restless leg syndrome ADHD Seizure Narcolepsy Social History Social History Household Members: None Housing: [facility] Do you presently have visiting nurse or other home services: Yes Alcohol intake: unknown Patient Tobacco Use Status: Never used Tobacco Smoked in Last 30 Days: No Use of substances other than those prescribed or required for medical reasons: No Advance Directives: No Advance Directives Information Provided: Yes service: No Physical Exam ED Vital Signs: Vital Signs - 24 hr 03/10/25 14:00 03/10/25 21:59 03/11/25 10:05 Temperature 98.9 F 97.5 F 97.9 F Pulse Rate 83 65 76 Respiratory Rate 18 18 18 Blood Pressure 119/66 114/63 97/56 L Pulse Oximetry 97 97 94 Oxygen Delivery Method Room Air Room Air Room Air 03/11/25 10:06 Temperature Pulse Rate Respiratory Rate Blood Pressure 97/56 L Pulse Oximetry Oxygen Delivery Method BMI result Body Mass Index 25.7 Course Reevaluation(s) Reevaluation #1: Received call from [facility], the patient has a seizure disorder, her medications have not been entered with her med rec, it will be updated by pharmacy in the morning, nursing is requesting 1 time doses of her scheduled medications, Keppra 1500 mg, oxcarbazepine 600 mg Time: 22:31 Reevaluation #2: NOÉ Gaspar Physician observation continued. Uneventful night. Vital signs stable. No complaints from nursing overnight. Med reconciliation reviewed and done. Pending disposition. Will continue to monitor. Reevaluation #3: Time: 08:21 Date: 03/08/25 Provider: NOÉ Lopez Patient in physician observation for case management needs. No acute events reported overnight.? No current issues or complaints. VS stable. Physical therapy recommending short-term rehab. Patient is pending placement at facility. Will continue to monitor. Time: 08:19 Date: 03/09/25 Provider: NOÉ Lopez Patient in physician observation for case management needs. No acute events reported overnight.? No current issues or complaints. VS stable. Physical therapy recommending short-term rehab. Patient is pending placement at facility. urine culture returned positive for ecoli/strep. will start on keflex. Will continue to monitor. Time: 07:21 Date: 03/10/25 Provider: NOÉ Lopez Final urine culture grew >100k E coli, sensitive to ampicillin, levofloxacin, nitrofurantoin, vancomycin, resistant to tetracycline. No sensitivity to Keflex. Will switch patient to levofloxacin as prior cultures sensitive to fluoroquinolones as well. Time: 08:18 Date: 03/10/25 Provider: NOÉ Nicole Patient in physician observation for case management needs. No acute events reported overnight.? No current issues or complaints. VS stable. Awaiting case management disposition. Time: 08:25 Date: 03/11/25 Provider: Julienne Stauffer PA-C Observation continues. Case Management continues to follow. Time: 010:20 Date: 03/11/25 Provider: Julienne Stauffer PA-C Observation care revealed the the patient does not meet medical necessity for hospitalization. Final disposition [facility] discussed with the patient. Patient completed observation care at 1020 am on 03/11/2025, total time spent in observation care was 4 days, 19 hours, and 22 minutes. Patient prescribed 2 doses of her Levofloxacin to finish her script for UTI. Medications Administered Discontinued Medications Generic Name Dose Route Start Last Admin Trade Name Freq PRN Reason Stop Dose Admin Acetaminophen 650 mg 03/06/25 17:13 03/10/25 20:19 Acetaminophen 325 Mg Tablet PO 650 mg Q6H PRN Administration Pain, Mild 1-3,fever,headache Amphetamine/Dextroamphetamine 5 mg 03/06/25 15:06 03/06/25 17:29 Dextroamphetamine/Amphetamine Xr 5 Mg Cap.Er.24h PO 03/06/25 15:07 5 mg ONCE ONE Administration Celecoxib 200 mg 03/07/25 09:00 03/11/25 10:00 Celecoxib 200 Mg Capsule PO 200 mg BID SUNG Administration Cephalexin HCl 500 mg 03/09/25 09:00 03/09/25 21:21 Cephalexin 500 Mg Capsule PO 500 mg TID SUNG Administration Fluoxetine HCl 10 mg 03/07/25 09:00 03/11/25 09:59 Fluoxetine Hcl 10 Mg Capsule PO 10 mg DAILY SUNG Administration Furosemide 40 mg 03/06/25 15:06 03/06/25 17:28 Furosemide 40 Mg Tablet PO 03/06/25 15:07 40 mg ONCE ONE Administration Protocol Furosemide 40 mg 03/07/25 09:00 03/07/25 09:19 Furosemide 40 Mg Tablet PO 40 mg BID@0900,1700 SUNG Administration Protocol Furosemide 40 mg 03/08/25 08:00 03/11/25 10:06 Furosemide 40 Mg Tablet PO 40 mg DAILY@0800 SUNG Administration Protocol Gabapentin 400 mg 03/07/25 09:00 03/11/25 10:00 Gabapentin 400 Mg Capsule PO 400 mg TID SUNG Administration Imipramine HCl 50 mg 03/07/25 08:30 03/11/25 09:59 Imipramine Hcl 50 Mg Tablet PO 50 mg Q6H SUNG Administration Levetiracetam 1,500 mg 03/06/25 22:30 03/06/25 22:50 Levetiracetam 500 Mg Tablet PO 03/06/25 22:31 1,500 mg ONCE ONE Administration Levetiracetam 1,500 mg 03/07/25 09:00 03/11/25 10:00 Levetiracetam 500 Mg Tablet PO 1,500 mg BID SUNG Administration Levofloxacin 750 mg 03/10/25 09:00 03/11/25 09:59 Levofloxacin 750 Mg Tablet PO 03/14/25 23:59 750 mg DAILY SUNG Administration Lorazepam 1 mg 03/10/25 20:08 03/10/25 20:19 Lorazepam 1 Mg Tablet PO 03/10/25 20:09 1 mg ONCE ONE Administration Methylphenidate HCl 20 mg 03/06/25 15:06 03/06/25 17:28 Methylphenidate Hcl 10 Mg Tablet PO 03/06/25 15:07 20 mg ONCE ONE Administration Methylphenidate HCl 20 mg 03/07/25 09:00 03/11/25 12:05 Methylphenidate Hcl 10 Mg Tablet PO 20 mg TIDWM SUNG Administration Oxcarbazepine 600 mg 03/06/25 22:30 03/06/25 22:50 Oxcarbazepine 300 Mg Tablet PO 03/06/25 22:31 600 mg ONCE ONE Administration Oxcarbazepine 600 mg 03/07/25 09:00 03/11/25 09:59 Oxcarbazepine 300 Mg Tablet PO 600 mg BID SUNG Administration Prednisone 5 mg 03/07/25 09:00 03/11/25 10:00 Prednisone 5 Mg Tablet PO 5 mg DAILY SUNG Administration Topiramate 50 mg 03/07/25 09:00 03/11/25 09:59 Topiramate 25 Mg Tablet PO 50 mg BID SUNG Administration Ziprasidone 20 mg 03/07/25 09:00 03/11/25 09:59 Ziprasidone 20 Mg Capsule PO 20 mg DAILY SUNG Administration Medical Decision Making Medical Decision Making [facility] Narrative: Patient is a 70-year-old female with history of narcolepsy on Ritalin, cataplexy, epilepsy, and migraines presenting to the ED with complaint of lower back pain, left hand pain after multiple recent falls. On exam patient is awake, A+Ox3, VS WNL, afebrile, normal neurological exam without focal deficits, physical exam findings as above. Given reported symptoms and physical exam findings, initial differential includes but is not limited to ICH, skull or cervical vertebral fracture or subluxation, thoracic or lumbar vertebral fracture subluxation, left hand contusion versus fracture. Upon review of EMR from [facility], patient was recently seen there on 03/03/2025 requesting refills of several medications, including Ritalin. The provider from that visit notes that upon review of [employer], patient should have an adequate supply of Ritalin through 03/08. Patient was also requesting prescriptions for benzonatate which she had not been prescribed since 2021 and did not currently have a cough, was asking for a refill of cefuroxime but denied any urinary symptoms and had completed the course of the prescribed course. The provider at that visit advised follow up with PCP and expressed concern for polypharmacy. Patient reportedly had no physical complaints at that visit. Labs notable for anemia not at transfusion level, last prior for comparison was in September, no significant electrolyte abnormalities, Keppra level pending. CT head and C-spine without evidence of ICH, skull or cervical vertebral fracture subluxation. Thoracic spine x-ray notable for degenerative disc disease but no acute fracture. Lumbar spine x-ray notable for stable L1 end-plate compression fracture. Left hand x-ray is without evidence of acute fracture. My interpretation is in agreement with the radiologist's interpretation. Results discussed with patient and all questions answered. Discussed with patient whether she felt safe returning home due to her multiple recent falls. She states that she has her own home but currently stays with her boyfriend Anastacio. She states that she feels she should have a PT evaluation and is agreeable to short-term rehab if recommended. States she specifically would like to go to a short-term rehab in [place], advised patient she can discuss this with case management when appropriate. Patient placed on physician observation pending PT/cm evaluation. Differential Diagnosis Differential Diagnoses: The differential diagnosis associated with the presentation includes as per [facility] Admission/Observation Consideration of admission/observation: Escalation of care including admission/observation considered Patient would have been admitted to the hospital had their clinical presentation warranted hospital admission. Lab Data [facility] Lab Attestation statement: I reviewed the patient's lab results. as per [facility] 03/06/25 12:58 03/06/25 12:58 Labs: Lab Results 03/06/25 03/06/25 03/07/25 Range/Units 12:58 17:44 16:05 WBC 5.7 (4.8-10.8) X10*3/uL RBC 2.99 L (4.20-5.50) X10*6/uL Hgb 9.9 L (12.0-16.0) g/dl Hct 28.9 L (37.0-47.0) % MCV 96.7 (80.0-98.0) fL MCH 33.1 H (27.0-33.0) pg MCHC 34.3 (31.0-35.0) g/dl RDW 12.9 (11.0-16.0) % Plt Count 237 (160-400) X10*3/uL MPV 8.6 L (9.4-12.3) fL Immature Gran % (Auto) 0.5 H (0.0-0.4) % Neut % (Auto) 58.1 (45-73) % Lymph % (Auto) 32.0 (20-40) % [place] % (Auto) 7.6 (2-11) % Eos % (Auto) 1.4 (0-4) % Baso % (Auto) 0.4 (0-2) % Lymph # (Auto) 1.8 (1.2-4.9) X10*3/uL [place] # (Auto) 0.4 (0.1-1.2) X10*3/uL Eos # (Auto) 0.1 (0.0-0.4) X10*3/uL Baso # (Auto) 0.0 (0.0-0.2) X10*3/uL Abs Immat Gran (auto) 0.03 (0.00-0.03) X10*3/uL Absolute Neuts (auto) 3.3 (2.0-8.3) x10*3/uL Absolute Nucleated RBC 0.000 (0.0-0.012) X10*3/uL Nucleated RBC % (auto) 0.0 (0.0-0.2) /100WBC Sodium 144 (135-145) mmol/L Potassium 3.3 (3.3-5.1) mmol/L Chloride 112 H (96-108) mmol/L Carbon Dioxide 26 (22-29) mmol/L Anion Gap 9 L (12-20) BUN 26 H (9-16) mg/dL Creatinine 0.69 (0.5-1.4) mg/dL Estim Creat Clear Calc 74.0 Estimated GFR > 60 Random Glucose 84 (60-115) mg/dL Lactic Acid 1.5 (0.5-2.0) mmol/L Calcium 8.1 L (8.4-10.2) mg/dL Magnesium 2.4 (1.6-2.6) mg/dL Total Bilirubin 0.2 (0.0-1.0) mg/dL AST 23 (5-31) U/L ALT 22 (0-31) U/L Alkaline Phosphatase 112 (39-117) U/L Total Protein 5.3 L (6.5-8.0) g/dL Albumin 3.3 L (3.5-5.0) g/dL Urine Color Yellow Urine Appearance Clear Urine pH 6.0 (5.0-9.0) Ur Specific [place] 1.020 (1.005-1.025) Urine Protein Negative (Neg-Trace) mg/dL Urine Glucose (UA) Negative (Negative) mg/dL Urine Ketones Negative (Negative) mg/dL Urine Blood Negative (Negative) Urine Nitrite Negative (Negative) Ur Leukocyte Esterase Small (1+) H (Negative) Urine RBC 0-2 (0-2) /HPF Urine WBC 0-5 (0-5) /HPF Ur Squamous Epith Cells 3-5 (0-2) /HPF Urine Bacteria 4+ (None Seen) Hyaline Casts 0-2 (0-2) /LPF Urine Opiates Screen Not Detected (Not Detect) Ur Buprenorphine Scrn Not Detected (Not Detect) ng/mL Ur Oxycodone Screen Positive H (Not Detect) ng/mL Urine Methadone Screen Not Detected (Not Detect) ng/mL Urine Fentanyl Screen Not Detected (Not Detect) Ur Barbiturates Screen Not Detected (Not Detect) Levetiracetam 87.0 H (6.0-46.0) mcg/mL Ur Phencyclidine Scrn Not Detected (Not Detect) Ur Amphetamines Screen Not Detected (Not Detect) U Benzodiazepines Scrn Not Detected (Not Detect) Urine Cocaine Screen Not Detected (Not Detect) U Marijuana (THC) Screen Not Detected (Not Detect) Ethyl Alcohol < 10 mg/dL Influenza Type A (PCR) NEGATIVE (Negative) Influenza Type B (PCR) NEGATIVE (Negative) RSV RNA Qual (PCR) NEGATIVE (Negative) SARS-CoV-2 RNA (RT-PCR) NEGATIVE (Negative) Independent Interpretation I performed an independent interpretation of an: Plain X-Ray and CT Scan Interpretation: CT head and C-spine without evidence of ICH, skull or cervical vertebral fracture subluxation. Thoracic spine x-ray notable for degenerative disc disease but no acute fracture. Lumbar spine x-ray notable for stable L1 end-plate compression fracture. Left hand x-ray is without evidence of acute fracture. Radiology Impression Discussion of test interpretation with radiology: I have reviewed the radiologist's reading. Radiologist Impression: XR/XR hand LT 2V IMPRESSION: Osteopenia. 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 No evidence of fracture. XR/XR lumbar spine 2-3V IMPRESSION: Stable superior endplate compression fracture L1. Moderately severe multilevel degenerative disc disease and facet osteoarthritis as progressed since the prior study. CT/CT cervical spine wo IV con IMPRESSION: No acute abnormality. Multilevel degenerative disc disease and facet osteoarthritis. CT/CT head/brain wo IV con IMPRESSION: No acute intracranial abnormality. XR/XR thoracic spine 3V IMPRESSION: Diffuse moderate degenerative disc disease. External Record Review External record reviewed: Inpatient record, Office record, Outpatient record and Outside ED record Discharge Plan Discharge Clinical Impression: Closed lumbar vertebral fracture, Acute UTI Patient Disposition: [facility] Transfer Details: [facility] Instructions: Urinary Tract Infection in Older Adults (ED) Additional Instructions: Take the remaining 2 days of your Levofloxacin for your UTI. IF you are prescribed home medications and/or you are taking over the counter medications at home - it is very important you continue to do so as prescribed / directed unless told otherwise. Follow up with your primary care provider. Return to the emergency department immediately if your symptoms worsen or if you develop any numbness, tingling, dizziness, shortness of breath, difficulty breathing, chest pain, blurry vision, loss of vision, nausea, vomiting, abdominal pain, fever, chills, back pain, or any other complaints. Please see the information below about our Patient Portal. If you are not yet enrolled in the [facility] Patient Portal, you will receive an enrollment email invitation following your visit to any [facility] care setting. You may also self-enroll in the Patient Portal by visiting our website: [email or web address] The following information is required to access the Patient Portal: - Your [facility] Medical Record Number - Your personal home email address (must match what is in your electronic medical record, Registration staff can assist with this) - Name - Date of Capabilities of the Patient Portal: - Message some providers - View upcoming appointments - Access your health summary, medical history, and visit history - View current conditions and allergies - View procedure and lab results - View your medications, including guidelines, side effects, and precautions - Complete pre-appointment questionnaires requested by your provider - Ready summary reports of your office visits and procedures To access the Patient Portal Mobile [employer], follow these directions: - Search [employer] in the [employer] Store or [employer] Store - Download the Namita - Search for [facility] - Enter your login/password Prescriptions: New levofloxacin 750 mg tablet 750 mg PO DAILY Qty: 2 0RF No Action prednisone 5 mg tablet 5 mg PO DAILY fluoxetine 10 mg capsule 10 mg PO DAILY imipramine HCl 50 mg tablet 50 mg PO TID oxcarbazepine 600 mg tablet 600 mg PO BID levetiracetam 750 mg tablet 1,500 mg PO BID gabapentin 400 mg capsule 400 mg PO TID topiramate 50 mg tablet 50 mg PO BID furosemide 40 mg tablet 40 mg PO DAILY methylphenidate HCl 20 mg tablet 20 mg PO TID Qty: 21 0RF celecoxib 200 mg capsule 200 mg PO BID Qty: 14 0RF ziprasidone HCl 20 mg capsule 20 mg PO DAILY@1700 Aimovig Autoinjector 70 mg/mL Auto-Injector 70 mg SUBCUT QMONTH Referrals: Shaina Shepard [Outside] Interventions: ED Discharge Assessment Last Done: 03/11/25 13:46 Discharge Date/Time: 03/11/25 13:51 Print Language: Choose Not To Answer
--- NOTE | 2025-03-06 12:08 | ECG_ITS ---
Test Reason : FALL Blood Pressure : */* mmHG Vent. Rate : 58 BPM Atrial Rate : 58 BPM P-R Int : 150 ms QRS Dur : 106 ms QT Int : 432 ms P-R-T Axes : 66 52 51 degrees QTcB Int : 424 ms Sinus bradycardia Minimal voltage criteria for LVH, may be normal variant ( Jun product ) Borderline ECG When compared with ECG of 02-Oct-2024 19:48, No significant change was found Referred By: Monica Whitfield Electronically Signed By: JOEL PAODACA MD
[2025-03-06 12:16] VITALS: BP 112/55; PULSE 64; RESP 18; TEMP 36.3; O2SAT 98
[2025-03-06 13:04] LABS: MANUAL DIFF FLAG NO
[2025-03-06 13:08] LABS: Hematocrit 28.9 % (37.0-47.0); Hemoglobin 9.9 g/dl (12.0-16.0); Imm Gran Abs Auto 0.03 X10*3/uL (0.00-0.03); Imm Gran Pct Auto 0.5 % (0.0-0.4); Lymphocytes Absolute Auto 1.8 X10*3/uL (1.2-4.9); Mean Corpuscular HGB Conc 34.3 g/dl (31.0-35.0); Mean Corpuscular Hemoglobin 33.1 pg (27.0-33.0); Mean Corpuscular Volume 96.7 fL (80.0-98.0); NRBC Abs Auto 0.000 X10*3/uL (0.0-0.012); NRBC Pct Auto 0.0 /100WBC (0.0-0.2); Platelet Count 237 X10*3/uL (160-400); Red Blood Count 2.99 X10*6/uL (4.20-5.50); White Blood Count 5.7 X10*3/uL (4.8-10.8)
[2025-03-06 13:26] LABS: Alanine Aminotransferase 22 U/L (0-31); Albumin Level 3.3 g/dL (3.5-5.0); Alkaline Phosphatase 112 U/L (39-117); Anion Gap 9 (12-20); Aspartate Amino Transferase 23 U/L (5-31); Blood Urea Nitrogen 26 mg/dL (9-16); Calcium 8.1 mg/dL (8.4-10.2); Carbon Dioxide 26 mmol/L (22-29); Chloride 112 mmol/L (96-108); Creatinine Clr Calc Pharmacy 74.0; Estimated Glomerular Filt Rate > 60; Magnesium 2.4 mg/dL (1.6-2.6); Potassium 3.3 mmol/L (3.3-5.1); Sodium 144 mmol/L (135-145); Total Protein 5.3 g/dL (6.5-8.0)
--- NOTE | 2025-03-06 15:45 | PC.NURSE ---
Pharmacy contacted for Ritalin and Adderall dose. Medication to be delivered to pt's new room in overflow .
[2025-03-06 15:52] VITALS: BP 111/59; PULSE 78; RESP 14; TEMP 36.4; O2SAT 99
--- NOTE | 2025-03-06 16:57 | PC.NURSE ---
Patient arrived to Overflow 4 at this time from main ED. Medications (Adderall XR & Methylphenidate HCL) requested from pharmacy at this time. Will medicate upon receipt. Not available in ED Overflow pyxis.
--- OUTSIDE RECORDS SUMMARY | 2025-03-06 17:23 | XMS_ITS | Clinical Summary ---
Author Organization [facility] Address [address] [place] [phone] Phone Care Team Providers Care Gasoline Tester Name Role Phone Je Jim MD Primary Care Provider [phone] Encounters Date Type Department Care Team Description 12/05/2024 Transcribe Orders [facility] Neurology [address] [place] [address] Rosa Isela Batista MA Narcolepsy with cataplexy (Primary Dx); Recurrent falls; Migraines from Last 3 Months Social History Tobacco Use Types Packs/Day Years Used Date Smoking Tobacco: Never Assessed Education Answer Date Recorded Are you interested in more education? Not on carlita e 12/05/2024 Are you concerned about learning? Not on file 12/05/2024 No 12/05/2024 No 12/05/2024 Digital Access Answer Date Recorded No 12/05/2024 No 12/05/2024 Reliable internet access at home? Not on file 12/05/2024 Device with a working camera? Not on file Comments Unknown Sex and Gender Information Value Date Recorded Sex Assigned at Not on file Legal Sex Female 9:53 PM EDT Gender Identity Not on file Sexual Orientation Not on file Plan of Treatment Health Maintenance Due Date Last Done Comments Adult Td,Tdap Booster 1957 LIPID PANEL 1957 DEPRESSION SCREENING 1969 SMOKING Hx and SMOKELESS TOB ACCO SCREENING 1970 HEPATITIS C SCREENING 1975 MAMMOGRAM 1997 COLOGUARD 2002 COLONOSCOPY 2002 COLORECTAL CANCER SCREENING 2002 FIT TEST 2002 FOBT 2002 SIGMOIDOSCOPY 2002 VIRTUAL COLONOSCOPY 2002 PNEUMOCOCCAL VACCINES (50+ y ears) (1 of 1 - PCV) 2007 ZOSTER VACCINES (1 of 2) 2007 OSTEOPOROSIS SCREENING INITI AL (ONE-TIME) 2022 INFLUENZA VACCINE (#1) 2025 COVID-19 VACCINE (1 - 2023-2 5 season) 2025 RSV VACCINE (1 - 1-dose 75+ series) 01/06/2032 HEPATITIS A VACCINES Aged Out No long er eligible based on patient's age to complete this topic HIB VACCINES Aged Out No longer eligi ble based on patient's age to complete this topic MENINGOCOCCAL VACCINES (ACWY) Aged Out No longer eligible based on patient's age to complete this topic MENINGOCOCCAL VACCINES (B) Aged Out N o longer eligible based on patient's age to complete this topic Medical Devices Not on file Insurance MEDICARE PART A & B [facility] A & B [facility] PPO MEDIC[facility] RE[facility] MED[facility] PART A & B [facility] MED[facility]ARE PART A & [facility] RE[facility] MED[facility] PART A & [facility] RE[facility] [address] [place], [place] [id number] MEDICARE PART A & B [facility]IC[facility]PLACEMENT [facility] Care Teams Gasoline Tester Relationship Specialty Start Date End Date Je Jim MD [address] [place] [address] PCP - General Internal Medicine 12/30/24 Additional Source Comments The information contained in this document represents components of the legal health record. It is not the complete legal health record.[facility]
[2025-03-06 17:28] VITALS: BP 111/59
[2025-03-06] MEDS: Dextroamphetamine/Amphetamine XR 5 MG CAP.ER.24H PO (17:29)
--- NOTE | 2025-03-06 17:32 | PC.NURSE ---
Patient medicated per provider orders. Patient denies any other complaints or needs at this time. Care ongoing by this RN.
[2025-03-06 18:08] LABS: Appearance Urine Clear; Glucose Urine UA Negative (Negative); PH 6.0 (5.0-9.0); Specific Gravity - Urine 1.020 (1.005-1.025); UMIC TRIGGER UACC YES
[2025-03-06 18:17] LABS: Cannabinoid Screen Urine Not Detected (Not Detect)
[2025-03-06 18:25] LABS: UACC Culture Trigger YES
--- NOTE | 2025-03-06 18:44 | MHC.CM.ED ---
CM met with patient to discuss discharge planning. Pt is A&Ox3. Pt has been staying with boyfriend, Anastacio Rollins ([phone]). Pt states she has a cane and a rollator at home, but she does not use them. She states she has no home services. Pt is agreeable to PT assessment, but states she will only go to [facility]. Does not want any other referrals made. CM reminded patient that she has had many falls and if PT recommends STR and [facility] does not have a bed, she will need to re-visit her options. CM will follow for discharge planning.
[2025-03-06 20:25] VITALS: BP 103/65; PULSE 80; RESP 16; TEMP 36.6; O2SAT 96
--- NOTE | 2025-03-06 21:25 | PC.NURSE ---
Pt used call sanchez for assist to the bathroom. Pt complaining of dizziness with standing. PT encouraged to move to bedside commode slowly. When cleaning up her herself after urinating, pt noted to have wiped back to front with fecal matter on the wipe. PT educated on proper wiping to decrease risk for infection
--- NOTE | 2025-03-06 22:28 | PC.NURSE ---
Attempted to complete home med list with pt. PT stated if TW printed list she could confirm her meds. When going over list, pt answer yes inappropriately, and unable to recall dosing for medications and frequency causing concern for pts reliability. TW requested assistance from pharmacy to complete med reconciliation.
--- NOTE | 2025-03-06 22:40 | PHA.MEDREC ---
Addendum entered by Baljit Farias 03/07/25 12:25: Spoke with pt S/O-Anastacio ([phone]) and he confirmed pt medications with Rx bottles at home. Pt prescribed Prednisone 5mg tabs 03/04 for 7 days; pt confirmed she takes a total daily dose of 15mg (a 5mg and 10mg tablet) for [place] and has been taking this regimen since the ; called pt pharmacies ([facility], [facility] and [facility]) and no one has claims for Prednisone being taken 15mg QD; Last dose picked up was Presnidone 5mg 1 QD, 03/05 for 7 days at [facility]; utilized claims and confirmed 5mg QD. Pt and S/O (Anastacio) confirmed her Imipramine is taken TID and not as written for Q6H and pt and Anastacio confirmed she is taking Levetiracetam 750mg tabs 2 tabs (1500mg) BID. Pt has not been able to any medications in about 2-3 days. Original Note: Pharmacy Consult ? Medication Reconciliation Pharmacy has completed the medication reconciliation. Pt poor historian, utilized pharmacy claims to confirm meds as there was concerns for missing seizure meds. Will ask morning team to double check with primary contact for med list.
--- NOTE | 2025-03-07 01:17 | MHC.EDTECH ---
Addendum entered by Gosia Higginbotham 03/07/25 01:28: patient taken to bed side commode 1 assist with rolling walker then back to bed . alarm on Original Note: patient awake with complaint of back pain RN aware/ meds given.
[2025-03-07 06:00] VITALS: BP 109/57; PULSE 62; RESP 18; TEMP 37.6; O2SAT 98
--- NOTE | 2025-03-07 07:15 | PC.NURSE ---
Addendum entered by Kristin Mann RN 03/07/25 08:02: Patient is a 70-year-old female with history of narcolepsy on Ritalin, cataplexy, epilepsy, and migraines presenting to the ED with complaint of lower back pain, left hand pain after multiple recent falls. On exam patient is awake. Normal neurological exam without focal deficits. Upon review of EMR from [facility], patient was recently seen there on 03/03/2025 requesting refills of several medications, including Ritalin. The provider from that visit notes that upon review of PROCESS COORDINATOR, patient should have an adequate supply of Ritalin through 03/08. The provider at that visit advised follow up with PCP and expressed concern for polypharmacy. CT head and C-spine without evidence of ICH, skull or cervical vertebral fracture subluxation. Thoracic spine x-ray notable for degenerative disc disease but no acute fracture. Lumbar spine x-ray notable for stable L1 end-plate compression fracture. Left hand x-ray is without evidence of acute fracture. Patient alert and oriented. Lungs clear bilat. Respirations even abdomen soft, non-labored. Positive pedal pulses with no edema noted. Original Note: Medical History Epileptic seizure Hypothyroidism Restless leg syndrome ADHD Seizure Narcol
--- NOTE | 2025-03-07 13:44 | MHC.CM.ED ---
Patient remains in ER overflow. Physical therapy eval completed. Clinical updates sent to [facility]. [facility] is able to offer a bed and is in the process of obtaining insurance auth. Unlikely to have auth until Monday. Continue to monitor for d/c needs.
[2025-03-07 14:00] VITALS: BP 107/57; PULSE 68; RESP 18; TEMP 36.7; O2SAT 96
[2025-03-07 17:00] LABS: Resp Syncy Virus RNA Qual PCR NEGATIVE (Negative); SARS COV2 PCR INHOUSE NEGATIVE (Negative)
[2025-03-07 20:06] VITALS: BP 104/51; PULSE 76; RESP 18; TEMP 35.9; O2SAT 97
--- NOTE | 2025-03-07 20:19 | MHC.EDTECH ---
This hearing health technician monitored patient while she showered for safety reasons. She was independent in her self care, and steady gait.
[2025-03-08 05:56] VITALS: BP 105/48; PULSE 62; RESP 18; TEMP 36.9; O2SAT 97
--- NOTE | 2025-03-08 07:41 | PC.NURSE ---
Patient is a 70-year-old female with history of narcolepsy on Ritalin, cataplexy, epilepsy, and migraines presenting to the ED with complaint of lower back pain, left hand pain after multiple recent falls. On exam patient is awake. Normal neurological exam without focal deficits. Upon review of EMR from [facility], patient was recently seen there on 03/03/2025 requesting refills of several medications, including Ritalin. The provider from that visit notes that upon review of STRUCTURAL ENGINEERING DRAFTING OFFICER, patient should have an adequate supply of Ritalin through 03/08. The provider at that visit advised follow up with PCP and expressed concern for polypharmacy. CT head and C-spine without evidence of ICH, skull or cervical vertebral fracture subluxation. Thoracic spine x-ray notable for degenerative disc disease but no acute fracture. Lumbar spine x-ray notable for stable L1 end-plate compression fracture. Left hand x-ray is without evidence of acute fracture. Patient alert and oriented. Lungs clear bilat. Respirations even abdomen soft, non-labored. Positive pedal pulses with no edema noted. Patient able to ambulate using her personal rollator. PT eval completed and STR recommended. Requesting to transition to [facility]. Medical History Epileptic seizure Hypothyroidism Restless leg syndrome ADHD Seizure Narcolepsy
--- NOTE | 2025-03-08 08:18 | MHC.CM.ED ---
Pt remains holding in the ED pending payor auth to [facility]. Payor not available on weekend for transfer auth. Pt aware that she will wait until 03/10 for transfer. ED CM to follow.
[2025-03-08 14:40] VITALS: BP 110/49; PULSE 63; RESP 16; TEMP 36.7; O2SAT 98
[2025-03-08 22:00] VITALS: BP 124/62; PULSE 76; RESP 15; TEMP 36.7; O2SAT 98
[2025-03-09 05:43] VITALS: BP 108/69; PULSE 76; RESP 16; TEMP 36.2; O2SAT 95
[2025-03-09 09:37] VITALS: BP 108/69
--- NOTE | 2025-03-09 10:20 | PC.NURSE ---
Pt c/o chronic left side body pain. Skin pwd./ able to get to commode w/o assist. NAD.
[2025-03-09 13:42] VITALS: BP 111/52; PULSE 78; RESP 16; TEMP 37.3; O2SAT 95
[2025-03-09 21:48] LABS: Levetiracetam Keppra 87.0 mcg/mL (6.0-46.0)
--- NOTE | 2025-03-10 | PC.NURSE ---
Took over care from YAA Bennett at 23:00, pt sleeping at this time.
--- NOTE | 2025-03-10 00:12 | PC.NURSE ---
Took over care at 23:00, notified provider NOÉ Barnard of pt needing a code status.
--- NOTE | 2025-03-10 01:49 | PC.NURSE ---
pt sleeping at this time.
--- NOTE | 2025-03-10 02:18 | PC.NURSE ---
medicated per mar.
--- NOTE | 2025-03-10 05:26 | PC.NURSE ---
pt sleeping , no sign of distress.
--- NOTE | 2025-03-10 05:48 | PC.NURSE ---
pure wick container changed, pt repositioned.
[2025-03-10 06:00] VITALS: BP 100/56; PULSE 61; RESP 16; TEMP 36.7; O2SAT 96
--- NOTE | 2025-03-10 07:29 | PC.NURSE ---
Care of Pt assumed at change of shift. Pt appears to be resting quietly with lights dimmed. NAD noted at this time.
[2025-03-10 08:54] VITALS: BP 104/58; PULSE 70; RESP 18; TEMP 36.7; O2SAT 100
[2025-03-10 09:42] VITALS: BP 104/58
--- NOTE | 2025-03-10 11:27 | MHC.CM.ED ---
Patient remains in ER overflow. Updated physical therapy note is needed for auth for STR at [facility]. Physical therapy made aware. Continue to monitor for d/c needs.
[2025-03-10 14:00] VITALS: BP 119/66; PULSE 83; RESP 18; TEMP 37.2; O2SAT 97
[2025-03-10 21:59] VITALS: BP 114/63; PULSE 65; RESP 18; TEMP 36.4; O2SAT 97
--- NOTE | 2025-03-11 09:51 | MHC.CM.ED ---
Patient remains in ER overflow. Insurance auth has been obtained by [employer]. Radu ALANIS booked for 1230pm. Med [facility] with chart. Patient, Nay MON and Julienne UMANZOR aware. Continue to monitor for d/c needs.
[2025-03-11 10:05] VITALS: BP 97/56; PULSE 76; RESP 18; TEMP 36.6; O2SAT 94
[2025-03-11 10:06] VITALS: BP 97/56
[2025-03-11 13:46] VITALS: BP 116/78; PULSE 68; RESP 16; TEMP 36.6; O2SAT 93
== END 2025-03-11 13:51 | disposition skilled nursing facility (03) ==
PROVIDERS: Physician Assistant; Registered Nurse Emergency; Emergency Provider Emergency Medicine; PCP Internal Medicine
DX: S32.019A Unspecified fracture of first lumbar vertebra, initial encounter for closed fracture (principal); R26.81 Unsteadiness on feet; N39.0 Urinary tract infection, site not specified; R07.89 Other chest pain; R00.1 Bradycardia, unspecified; M54.2 Cervicalgia; M79.642 Pain in left hand; W10.9XXA Fall (on) (from) unspecified stairs and steps, initial encounter; Y93.9 Activity, unspecified; Y92.9 Unspecified place or not applicable; Y99.8 Other external cause status; Z51.81 Encounter for therapeutic drug level monitoring; Z79.899 Other long term (current) drug therapy; Z03.818 Encounter for observation for suspected exposure to other biological agents ruled out
CPT/HCPCS: 36415; 51701; 70450; 72072; 72100; 72125; 73120; 80053; 80177; 80307; 81001; 83605; 83735; 85025; 87086; 87186; 87637; 93005; 97116; 97161; 99285

== ENCOUNTER → 2025-03-06 11:01 | Outpatient (BNV) | payer MEDICARE, SELFPAY | PROVIDERS: Emergency Provider Emergency Medicine; PCP Internal Medicine; Visit Provider Radiology Diagnostic Radiology | DX: M50.30 Other cervical disc degeneration, unspecified cervical region (principal); S09.90XA Unspecified injury of head, initial encounter; M51.34 Other intervertebral disc degeneration, thoracic region; M51.360 Other intervertebral disc degeneration, lumbar region with discogenic back pain only; M19.042 Primary osteoarthritis, left hand | CPT/HCPCS: 70450; 72072; 72100; 72125; 73120 ==

== ENCOUNTER → 2025-03-06 12:08 | Outpatient (BNV) | payer MEDICARE, SELFPAY | PROVIDERS: Emergency Provider Emergency Medicine; PCP Internal Medicine; Visit Provider Internal Medicine Cardiovascular Disease | DX: R00.1 Bradycardia, unspecified (principal) | CPT/HCPCS: 93010 ==

== ENCOUNTER 2025-04-24 11:32 | Emergency (ER) | payer MEDICARE, SELFPAY ==
--- NOTE | ~2025-04-24 | XR_ITS ---
EXAMINATION: XR HAND 3 OR MORE VIEWS RIGHT HISTORY: metacarpal joint swellings? arthritis COMPARISON: There are no prior studies available for comparison. FINDINGS: Three views of the right hand are submitted. The bones are osteopenic. There is no fracture or dislocation. There is severe osteoarthritis of the DIP and PIP joints as well as the interphalangeal joint of the thumb, the MCP joint of the thumb, and the 1st carpometacarpal joint. There is moderate osteoarthritis of the MCP joint of the index finger. The soft tissues are unremarkable. XR/XR hand RT min 3V IMPRESSION: Osteoarthritis of the right hand as described. Electronically signed by: Abraham Fitch MD 04/24/2025 12:32 PM EDT
--- NOTE | ~2025-04-24 | XR_ITS ---
EXAMINATION: XR HAND 3 OR MORE VIEWS LEFT HISTORY: metacarpal joint swellings, arthritis COMPARISON: Comparison is made with the prior examination dated 03/06/2025. FINDINGS: Three views of the left hand are submitted. The bones are osteopenic. There is no fracture or dislocation. Again seen is severe osteoarthritis of the DIP joints, the interphalangeal joint of the thumb, MCP joint of the thumb, and the 1st carpometacarpal joint. There is moderate osteoarthritis of the PIP joints and the CP joints. The soft tissues are unremarkable. XR/XR hand LT min 3V IMPRESSION: Osteopenia. Osteoarthritis as described. Electronically signed by: Abraham Fitch MD 04/24/2025 12:30 PM EDT
[2025-04-24 11:42] VITALS: BP 131/66; PULSE 87; RESP 18; TEMP 36.4; O2SAT 97; BMI 24.1
--- NOTE | 2025-04-24 11:47 | ED.GENADULT ---
HPI - General Adult General Chief complaint: General Medical Stated complaint: hand swelling Time Seen by Provider: 04/24/25 14:22 Source: patient Mode of arrival: ambulatory Limitations: no limitations History of Present Illness ED Provider: Evangelista Zeng HPI narrative: 70 yold female with pmh of Rheumatoid arteritits, lupus, and CHF presents to the ED for bilateral hand metacarpal joints pain, fingers swellin and swelling and she is requesting prednisone for her flare up. patient also reqeusting ritalin refill. patient states no chest pain, shortness of breath, fever, chills, redness, recent travel, recent trauma, coughing blood, or weakness. . Related Data Home Medications ?Medication ?Instructions ?Recorded ?Confirmed fluoxetine 10 mg capsule 10 mg PO DAILY 11/09/22 03/07/25 prednisone 5 mg tablet 5 mg PO DAILY 11/09/22 03/07/25 imipramine HCl 50 mg tablet 50 mg PO TID 03/15/24 03/07/25 levetiracetam 750 mg tablet 1,500 mg PO BID 03/15/24 03/07/25 oxcarbazepine 600 mg tablet 600 mg PO BID 03/15/24 03/07/25 furosemide 40 mg tablet 40 mg PO DAILY swelling 10/03/24 03/07/25 gabapentin 400 mg capsule 400 mg PO TID 10/03/24 03/07/25 topiramate 50 mg tablet 50 mg PO BID 10/03/24 03/07/25 erenumab-aooe 70 mg/mL 70 mg subcut QMONTH 03/07/25 03/07/25 subcutaneous auto-injector (Aimovig Autoinjector) ziprasidone HCl 20 mg capsule 20 mg PO DAILY@1700 03/07/25 03/07/25 Previous Rx's ?Medication ?Instructions ?Recorded methylphenidate HCl 20 mg tablet 20 mg PO TID #21 tabs 10/06/24 celecoxib 200 mg capsule 200 mg PO BID #14 caps 11/04/24 levofloxacin 750 mg tablet 750 mg PO DAILY #2 tabs 03/11/25 prednisone 20 mg tablet 40 mg (2 x 20 mg) PO DAILY 5 days 04/24/25 #10 tabs Allergies Allergy/AdvReac Type Severity Reaction Status Date / Time latex (Latex) Allergy Intermediate SWELLING Verified 04/24/25 11:44 ampicillin (Ampicillin) Allergy Mild ITCHING Verified 04/24/25 11:44 potassium chloride Allergy Mild ITCHING Verified 04/24/25 11:44 (Potassium Chloride) Review of Systems Review of Systems: bilateral hand swelling Yes all other systems are reviewed and are negative [facility] Past Medical History Medical History Epileptic seizure Hypothyroidism Restless leg syndrome ADHD Seizure Narcolepsy Social History Social History Household Members: None Housing: Condominium Do you presently have visiting nurse or other home services: Yes Alcohol intake: unknown Patient Tobacco Use Status: Never used Tobacco Advance Directives: No Advance Directives Information Provided: Yes service: No Physical Exam ED Vital Signs: Vital Signs - 24 hr 04/24/25 11:42 Temperature 97.6 F Pulse Rate 87 Respiratory Rate 18 Blood Pressure 131/66 Pulse Oximetry 97 Oxygen Delivery Method Room Air BMI result Body Mass Index 24.1 Const General: cooperative, healthy appearing, comfortable, no acute distress, well developed, alert, awake and Physically active Orientation/consciousness: patient oriented x3 HENMT Head: Yes normal to inspection and Yes No palpable skull fracture present Ears: hearing grossly normal bilaterally, external ears normal, TM's normal bilaterally, TM normal on the right, TM normal on the left, EAC's normal, mastoids normal and no periauricular adenopathy General nose exam: Normal external nose present and Normal nares present Face and sinus: Yes normal facial exam and Yes sinuses nontender Mouth: Normal oral and palatal mucosa present, lip normal and tongue normal Teeth and gingiva: dentition normal and gingiva normal Throat: Yes posterior oropharynx normal, Yes tonsils normal and Yes uvula midline Eyes General: appearance normal, both eyes and all related structures Neck Neck: Yes normal visual inspection, Yes full ROM, Yes no lymphadenopathy, Yes no meningeal signs, Yes trachea midline, Yes supple, No anterior neck swelling and No tender Chest Chest palpation & inspection: normal inspection of the chest and normal palpation of entire chest wall Resp Effort & Inspection: normal respiratory effort and able to speak in complete sentences Auscultation: clear to auscultation bilaterally Cardio Jugular venous distension: no JVD Heart sounds: S1 normal heart sound present and S2 normal heart sound present GI Inspection: Yes normal to inspection Palpation (GI): Soft to palpation, not firm, nontender, no guarding and not rigid General: Yes no CVA tenderness Back/Spine/Pelvis Back: no CVA tenderness and No back tenderness Skin General skin exam: no rashes or lesions noted, elasticity normal and turgor normal Neuro General: patient oriented x3, gait normal, tone normal, moves all extremities, Normal light touch and pain sensation, no meningeal signs, no focal motor deficits and CN's II-XI intact bilaterally Extrem General: Yes normal to inspection, Yes full ROM and Yes capillary refill normal Hand/finger images:  1. metcarpal joints arthritic swelling. negative for erythema, fluctulance, ecchysmosis, wounds, pus discharge, red streaks, or crepitus. rest of extremities is normal. negative for swelling. Vascular motor, and neuro exam is intact. 2. metcarpal joints arthritic swelling. negative for erythema, fluctulance, ecchysmosis, wounds, pus discharge, red streaks, or crepitus. rest of extremities is normal. negative for swelling. Vascular motor, and neuro exam is intact. 3. positive for arthritic chronic deformities. negative for erythema, fluctulance , ecchymosmis, wounds, pus discharge, red streaks, crepitus, redstreaks, or stiffness. Rest of extremities is normal. motor, neuro, and vascular exam is intact. 4. positive for arthritic chronic deformities. negative for erythema, fluctulance , ecchymosmis, wounds, pus discharge, red streaks, crepitus, redstreaks, or stiffness. Rest of extremities is normal. motor, neuro, and vascular exam is intact. Psych Appearance: grossly normal, well kempt and not disheveled Course Course Course Narrative: RME; 70-year-old female history of lupus, rheumatoid arthritis, states heart failure presents to ED for bilateral hand swelling around the joints with the pain. Patient denies any swelling of the rest of her upper extremity. Patient states she ran out of her water pills. Patient denies any leg swelling, chest pain, shortness of breath. Positive for metacarpal joint swelling on bilateral hands. Negative for forearm swelling or pitting edema. Labs x-ray ordered Medical Decision Making Medical Decision Making MDM Narrative: 70 yold female with pmh of Rheumatoid arteritits, lupus, and CHF presents to the ED for bilateral hand metacarpal joints pain and swelling and she is requesting prednisone for her flare up. patient also reqeusting ritalin Patient whole hand is or upper extremity is not swollen just metacarpal joints and fingers. Visual inspection metacarpal and fingers or deformed due arthritis. Negative for palm volar dorsal swelling or any wrist forearm or biceps shoudler swelling. Negative for any erythema, crepitus, ecchymosis or deformity. Labs EKG finger x-ray ordered. 2:56pm: 2nd troponins negative. Physical exam does not indicate compartment syndrome or DVT. No need for ultrasound. Not suspecting arterial occlusion, DVT, osteomyelitis, cellulitis, lymphangitis, necrotizing fasciitis, or any other life-threatening etiology. History physical exam indicate rheumatoid arthritis flare-up of the joints. Patient will be discharged with steroids. Patient explained worrisome signs informed return to the ED immediately. patient corrected herself and states she does not need CHF medication. patient requested dose of dextroamphetamine in the ED. patient has Ritalin ( home meds were reviewed) meds at home and informed to take the meds at home. p Differential Diagnosis Differential Diagnoses: The differential diagnosis associated with the presentation includes (gout, Rheumatoid arthieritis) Admission/Observation Consideration of admission/observation: Escalation of care including admission/observation considered Lab Data MDM Lab Attestation statement: I reviewed the patient's lab results. 04/24/25 12:03 04/24/25 12:03 Labs: Lab Results 04/24/25 04/24/25 04/24/25 Range/Units 12:03 12:03 14:19 WBC 4.1 L (4.8-10.8) X10*3/uL RBC 3.96 L D (4.20-5.50) X10*6/uL Hgb 12.6 D (12.0-16.0) g/dl Hct 38.4 D (37.0-47.0) % MCV 97.0 (80.0-98.0) fL MCH 31.8 (27.0-33.0) pg MCHC 32.8 (31.0-35.0) g/dl RDW 11.7 (11.0-16.0) % Plt Count 235 (160-400) X10*3/uL MPV 8.8 L (9.4-12.3) fL Immature Gran % (Auto) 0.2 (0.0-0.4) % Neut % (Auto) 59.1 (45-73) % Lymph % (Auto) 30.2 (20-40) % Mckinley % (Auto) 6.3 (2-11) % Eos % (Auto) 3.7 (0-4) % Baso % (Auto) 0.5 (0-2) % Lymph # (Auto) 1.2 (1.2-4.9) X10*3/uL Mckinley # (Auto) 0.3 (0.1-1.2) X10*3/uL Eos # (Auto) 0.2 (0.0-0.4) X10*3/uL Baso # (Auto) 0.0 (0.0-0.2) X10*3/uL Abs Immat Gran (auto) 0.01 (0.00-0.03) X10*3/uL Absolute Neuts (auto) 2.4 (2.0-8.3) x10*3/uL Absolute Nucleated RBC 0.000 (0.0-0.012) X10*3/uL Nucleated RBC % (auto) 0.0 (0.0-0.2) /100WBC PT 10.9 (10.9-12.4) SEC INR 1.0 (0.9-1.1) APTT 34.1 (26.7-34.1) SEC Sodium 139 (135-145) mmol/L Potassium 4.1 D (3.3-5.1) mmol/L Chloride 108 (96-108) mmol/L Carbon Dioxide 26 (22-29) mmol/L Anion Gap 9 L (12-20) BUN 12 (9-16) mg/dL Creatinine 0.58 (0.5-1.4) mg/dL Estim Creat Clear Calc 76.8 Estimated GFR > 60 Random Glucose 83 (60-115) mg/dL Uric Acid 2.7 (2.4-5.7) mg/dL Calcium 8.5 (8.4-10.2) mg/dL Total Bilirubin 0.2 (0.0-1.0) mg/dL AST 31 (5-31) U/L ALT 24 (0-31) U/L Alkaline Phosphatase 155 H (39-117) U/L Troponin I High Sens < 2.7 < 2.7 (<3.5-17.0) ng/L NT-Pro-B Natriuret Pep Cancelled 111.0 Total Protein 6.4 L (6.5-8.0) g/dL Albumin 4.1 (3.5-5.0) g/dL Independent Interpretation I performed an independent interpretation of an: EKG (non diagnositc) and Plain X-Ray Radiology Impression Discussion of test interpretation with radiology: I have reviewed the radiologist's reading. Prescription Management I considered prescription management with: Pain Medication and Antibiotic Discharge Plan Discharge Clinical Impression: Rheumatoid arthritis flare, Arthritis of hand Patient Disposition: Home, Self-Care Instructions: Osteoarthritis (ED) Additional Instructions: Recommend follow up with primary care provider and rheumatoid specialist. Return to the ED for worsening pain of hands, redness, swelling, bluish black discoloration, leg swelling, calf pain, chest pain, shortness of breath, or any other concerning symptoms. Your labs imaging EKG came back reassuring. Ordering Physician: Evangelista Zeng Date of Service: 04/24/25 Procedure(s): XR hand LT min 3V Accession Number(s): [id number] cc: Evangelista Zeng; Physician,None ~ Reason for Exam: metcarpal joint swellings, artheritits/ EXAMINATION: XR HAND 3 OR MORE VIEWS LEFT HISTORY: metacarpal joint swellings, arthritis COMPARISON: Comparison is made with the prior examination dated 03/06/2025. FINDINGS: Three views of the left hand are submitted. The bones are osteopenic. There is no fracture or dislocation. Again seen is severe osteoarthritis of the DIP joints, the interphalangeal joint of the thumb, MCP joint of the thumb, and the 1st carpometacarpal joint. There is moderate osteoarthritis of the PIP joints and the CP joints. The soft tissues are unremarkable. XR/XR hand LT min 3V IMPRESSION: Osteopenia. Osteoarthritis as described. Electronically signed by: Abraham Fitch MD 04/24/2025 12:30 PM EDT [address] [address] XRay Report Signed Patient: Alisia Barker MR#: [id number] : 1955 Acct:[id number] Age/Sex: 70 / F ADM Date: 04/24/25 Loc: HO.ED Attending Dr: Ordering Physician: Evangelista Zeng Date of Service: 04/24/25 Procedure(s): XR hand RT min 3V Accession Number(s): [id number] cc: Evangelista Zeng; Physician,None ~ Reason for Exam: metacarpal joint swellings? arteritits EXAMINATION: XR HAND 3 OR MORE VIEWS RIGHT HISTORY: metacarpal joint swellings? arthritis COMPARISON: There are no prior studies available for comparison. FINDINGS: Three views of the right hand are submitted. The bones are osteopenic. There is no fracture or dislocation. There is severe osteoarthritis of the DIP and PIP joints as well as the interphalangeal joint of the thumb, the MCP joint of the thumb, and the 1st carpometacarpal joint. There is moderate osteoarthritis of the MCP joint of the index finger. The soft tissues are unremarkable. XR/XR hand RT min 3V IMPRESSION: Osteoarthritis of the right hand as described. Electronically signed by: Abraham Fitch MD 04/24/2025 12:32 PM EDT Prescriptions: New prednisone 20 mg tablet 40 mg PO DAILY 5 Days Qty: 10 0RF No Action prednisone 5 mg tablet 5 mg PO DAILY fluoxetine 10 mg capsule 10 mg PO DAILY imipramine HCl 50 mg tablet 50 mg PO TID oxcarbazepine 600 mg tablet 600 mg PO BID levetiracetam 750 mg tablet 1,500 mg PO BID gabapentin 400 mg capsule 400 mg PO TID topiramate 50 mg tablet 50 mg PO BID furosemide 40 mg tablet 40 mg PO DAILY methylphenidate HCl 20 mg tablet 20 mg PO TID Qty: 21 0RF celecoxib 200 mg capsule 200 mg PO BID Qty: 14 0RF ziprasidone HCl 20 mg capsule 20 mg PO DAILY@1700 Aimovig Autoinjector 70 mg/mL Auto-Injector 70 mg SUBCUT QMONTH levofloxacin 750 mg tablet 750 mg PO DAILY Qty: 2 0RF Referrals: Anya Berger MD [Physician, Rheumatology] - 2 days Referral Note: Rheumatology joint flare-up Clinical Impression: Arthritis of hand; Rheumatoid arthritis flare Stand Alone Forms: Work/School Release Interventions: ED Discharge Assessment Last Done: 04/24/25 15:26 Discharge Date/Time: 04/24/25 15:27 Print Language: Choose Not To Answer
--- NOTE | 2025-04-24 11:49 | ECG_ITS ---
Test Reason : SWELLING Blood Pressure : */* mmHG Vent. Rate : 70 BPM Atrial Rate : 70 BPM P-R Int : 144 ms QRS Dur : 102 ms QT Int : 396 ms P-R-T Axes : 68 67 61 degrees QTcB Int : 427 ms Normal sinus rhythm Normal ECG When compared with ECG of 06-Mar-2025 12:22, No significant change was found Referred By: Evangelista Zeng Electronically Signed By: SELINA MYERS
[2025-04-24 12:11] LABS: MANUAL DIFF FLAG NO
[2025-04-24 12:12] LABS: Hematocrit 38.4 % (37.0-47.0); Hemoglobin 12.6 g/dl (12.0-16.0); Imm Gran Abs Auto 0.01 X10*3/uL (0.00-0.03); Imm Gran Pct Auto 0.2 % (0.0-0.4); Lymphocytes Absolute Auto 1.2 X10*3/uL (1.2-4.9); Mean Corpuscular HGB Conc 32.8 g/dl (31.0-35.0); Mean Corpuscular Hemoglobin 31.8 pg (27.0-33.0); Mean Corpuscular Volume 97.0 fL (80.0-98.0); NRBC Abs Auto 0.000 X10*3/uL (0.0-0.012); NRBC Pct Auto 0.0 /100WBC (0.0-0.2); Platelet Count 235 X10*3/uL (160-400); Red Blood Count 3.96 X10*6/uL (4.20-5.50); White Blood Count 4.1 X10*3/uL (4.8-10.8)
[2025-04-24 12:17] LABS: INTERNATIONAL NORM RATIO 1.0 (0.9-1.1); Prothrombin Time 10.9 SEC (10.9-12.4)
[2025-04-24 12:20] LABS: Partial Thromboplastin Time 34.1 SEC (26.7-34.1)
[2025-04-24 12:30] LABS: Alanine Aminotransferase 24 U/L (0-31); Albumin Level 4.1 g/dL (3.5-5.0); Alkaline Phosphatase 155 U/L (39-117); Anion Gap 9 (12-20); Aspartate Amino Transferase 31 U/L (5-31); Blood Urea Nitrogen 12 mg/dL (9-16); Calcium 8.5 mg/dL (8.4-10.2); Carbon Dioxide 26 mmol/L (22-29); Chloride 108 mmol/L (96-108); Creatinine Clr Calc Pharmacy 76.8; Estimated Glomerular Filt Rate > 60; Potassium 4.1 mmol/L (3.3-5.1); Sodium 139 mmol/L (135-145); Total Protein 6.4 g/dL (6.5-8.0); Uric Acid 2.7 mg/dL (2.4-5.7)
[2025-04-24 12:37] LABS: NT Pro B Type Natriuretic Pept 111.0 pg/mL (<300)
[2025-04-24 12:38] LABS: Troponin-I High Sensitivity < 2.7 ng/L (<3.5-17.0)
[2025-04-24 14:47] LABS: Troponin-I High Sensitivity < 2.7 ng/L (<3.5-17.0)
[2025-04-24 15:26] VITALS: BP 131/66; PULSE 87; RESP 18; TEMP 36.4; O2SAT 97
--- OUTSIDE RECORDS SUMMARY | 2025-04-24 17:57 | XMS_ITS | Clinical Summary ---
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 MEDICARE PART A & B [employer] P[employer] MEDICARE REPLACEMENT [facility] MEDICARE PART A & B [facility]IC[facility]ACEMENT 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 It is not the complete legal health record.[facility]
== END 2025-04-24 15:27 | disposition home or self-care (01) ==
LOC: HO.ED 15:17
PROVIDERS: Physician Assistant; Emergency Provider Emergency Medicine
DX: M06.842 Other specified rheumatoid arthritis, left hand (principal); M06.841 Other specified rheumatoid arthritis, right hand; R60.0 Localized edema; M32.9 Systemic lupus erythematosus, unspecified
CPT/HCPCS: 36415; 73130; 80053; 83880; 84484; 84550; 85025; 85610; 85730; 93005; 99283

== ENCOUNTER → 2025-04-24 11:47 | Outpatient (BNV) | payer MEDICARE, SELFPAY | PROVIDERS: Visit Provider Radiology Diagnostic Radiology | DX: R22.33 Localized swelling, mass and lump, upper limb, bilateral (principal) | CPT/HCPCS: 73130 ==

== ENCOUNTER → 2025-04-24 11:49 | Outpatient (BNV) | payer MEDICARE, SELFPAY | PROVIDERS: Emergency Provider Emergency Medicine; Visit Provider Internal Medicine | DX: R60.9 Edema, unspecified (principal) | CPT/HCPCS: 93010 ==

== ENCOUNTER 2025-05-21 08:37 | Outpatient (AMB) | payer MEDICARE, SELFPAY ==
--- NOTE | 2025-05-21 09:00 | MHC.OFFVIS ---
Intake Visit Reasons: Follow up Allergies latex (Latex) Allergy (Intermediate, Verified 05/21/25 09:09) SWELLING ampicillin (Ampicillin) Allergy (Mild, Verified 05/21/25 09:09) ITCHING potassium chloride (Potassium Chloride) Allergy (Mild, Verified 05/21/25 09:09) ITCHING Medication List - Last Reconciled 05/21/25 by María Pradhan, OSVALDO celecoxib 200 mg PO BID dextroamphetamine-amphetamine 5 mg 1 tab PO erenumab-aooe (Aimovig Autoinjector) 70 mg subcut QMONTH fluoxetine 10 mg PO DAILY furosemide 40 mg PO DAILY gabapentin 400 mg PO TID imipramine HCl 50 mg PO TID levetiracetam 750 mg PO BID levofloxacin 750 mg PO DAILY methylphenidate HCl 20 mg PO TID oxcarbazepine 600 mg PO BID prednisone 20 mg PO DAILY topiramate 50 mg PO BID ziprasidone HCl 20 mg PO DAILY@1700 HPI Comments Details: 70-year-old woman who returns to the office after about 29 months, last seen on 11/29/[address] Anaya, who reports multiple neurological conditions, including narcolepsy, seizures, and migraines, here requesting multiple medications. She had medication list dated 10/2024, that did not include multiple medications currently in our system, including Aimovig and imipramine. When she was asked about discrepancies, she said her daughter stole her Aimovig injection, and she was not sure what imipramine was for, but probably needed it. She apparently had VNA who was helping to manage medications, but says service may be ending soon due to insurance reasons. She thought she may have had a seizure during sleep 2 nights ago as she woke up feeling out of it. There was no tongue bite or incontinence. She was taking levetiracetam twice a day and said medication worked well for her, but thought she may need medication three times a day. She says she blacks out quite a bit, but could not remember the last time it happened. 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 Sleep was up and down at night, and she may nap for 15-20 minutes 3x/day. She reports falling down very often and says she almost fell down this morning. She was most concerned about getting refill of Ritalin, which she insisted needed to be filled today or else she would keep falling down, and said the purpose of her visit was to have medication refilled. Ritalin was currently prescribed 20mg three times a day, but she said she needed the medication four times a day. She asked if Ritalin dose was not going to be increased if something else could be prescribed to help calm her down. She said she had been without Ritalin for about 1 month. [facility] was checked which showed methylphenidate #90 last filled on 04/10/[address] Clari Jim, and Adderall ER 30mg #30 last filled 05/12/[address] Clari Jim. When she was informed Adderall was recently refilled, she said she threw medication out and did not have any, and needed Ritalin refilled today. Last office on 11/29/[address] Anaya: Wants Adderall. Have asked her nurse to call and verify meds and lock box measures. Says keeps falling and hit . Asking for more meds more muscle relaxants, Dexedrine, more Ritalin. Back is doing well. Has lumbar spinal stenosis. Right hip also needs surgery. Says she has cataplexy and falls . 3 wks of vertigo and 3 falls. also says she is blacking out and having cataplexy but the story does not fit that description. No blackouts in >3 months. Takes 3 x15min naps from 1.00pm because of narcolepsy. Also trouble focusing from her ADD. She has a diagnoses of epilepsy since age 8, narcolepsy and migraine headaches. None of her medical records are available at this time and the extent of her workup and how from the diagnoses is is not clear. She doesn't have a list of her medications but says that she is on Adderall, Keppra, Prozac and other medicines that she can't recall. He has a lockbox for medications. Dr. Frank's records are not available right now on this visit and will be requested. She'll make a followup visit for more comprehensive evaluation. Once we have access to her medical records. No refills for the control drugs will be done prior to that. [facility] Medical History (Updated 11/26/25 @ 09:38 by María Pradhan CNP) Epileptic seizure Hypothyroidism Restless leg syndrome ADHD Seizure Narcolepsy Social History Household Members: None Housing: Condominium Do you presently have visiting nurse or other home services: Yes Alcohol intake: unknown Patient Tobacco Use Status: Never used Tobacco service: No Review of Systems Const Denies chills, Denies daytime sleepiness, Reports difficulty sleeping, Denies fatigue, Denies fever(s), Denies frequent falls, Reports headache(s), Denies increased appetite, Denies poor appetite, Reports snoring, Denies weakness, Denies weight gain and Denies weight loss Eyes Denies loss of vision ENT Denies vertigo, Reports dizziness, Reports headache(s) and Reports neck pain Card Denies chest pain at rest, Denies chest pain with activity, Denies syncope, Denies leg edema, Denies palpitations, Denies dyspnea and Denies dyspnea on exertion Resp Denies cough, Denies dyspnea, Denies dyspnea on exertion and Reports snoring GI Denies abdominal pain, Denies constipation, Denies heartburn, Denies diarrhea and Denies nausea Denies urinary frequency, Denies urinary incontinence and Denies urinary urgency Musc Denies abnormal gait, Reports back pain, Reports myalgias, Reports arthralgias, Reports neck pain, Reports numbness and Reports tingling Neuro Denies abnormal gait, Denies vertigo, Reports dizziness, Denies syncope, Denies frequent falls, Reports headache(s), Denies lack of coordination, Denies loss of vision, Denies memory loss, Reports numbness, Denies Other visual disturbances, Denies restless legs, Reports seizure-like activity, Reports tingling, Denies paresthesias, Denies tremor(s), Denies weakness and Reports other (balance difficulty) Psych Denies anxiety, Denies depression, Denies auditory hallucinations, Denies memory loss and Denies visual hallucinations Endo Denies fatigue and Denies palpitations Physical Exam Const Other: General Appearance:? normal, in no acute distress. Heart:? S1, S2 normal, no murmurs. Lungs:? clear anteriorly and posteriorly. Musculoskeletal:? normal. Extremities:? no edema. Psych:? alert, oriented, cognitive function intact, cooperative with exam. Neuro Other: Abnormal Neurological Findings:?DTRs trace to absent. ? Mental Status: alert and oriented X 3. Normal attention, orientation, memory, and affect. Cranial Nerves: Pupils are equal, round, and reactive to light. External ocular muscles are intact. Visual lama are full, no ptosis. Face is symmetrical, no facial weakness or droop. Facial sensations are normal. Tongue protrudes in midline. Palate elevates symmetrically. Shoulder shrugging is normal Motor Examination: DTRs trace. Sensory Exam: Normal light touch, temperature, pinprick, vibration, and joint-position sensations. Rhomberg sign is absent. Coordination: No ataxia. No titubation. Gait Exam: Within normal limits. Cerebellar Signs: Oidyre-yc-niqm is okay. Extrapyramidal System: No tremor, rigidity with normal facial expressions. No bradykinesia. No bradyphrenia. Normal arm swing and posture. No propulsion or retropulsion. Speech: Normal. Results Reviewed Results Reviewed: [address] [address] [address] Scan Report Signed Patient: Alisia Barker MR#: [id number] : 1955 Acct:[id number] Age/Sex: 70 / F ADM Date: 03/06/25 Loc: HO.ED Attending Dr: Ordering Physician: Monica Whitfield NP Date of Service: 03/06/25 Procedure(s): CT head/brain wo IV con Accession Number(s): [id number] cc: Clari Jim MD; Monica Whitfield NP~ Report Number: [id number]: Total DLP = 0.00 mGy-cm Reason for Exam: fall with head strike EXAMINATION: CT HEAD WITHOUT CONTRAST CLINICAL INFORMATION: Fall with head trauma, multiple COMPARISON: October 02, 2024 TECHNIQUE: Contiguous axial imaging was performed from the skull base to vertex without intravenous administration of contrast. This CT examination was performed using dose optimization techniques as appropriate, variously including the following: *Automated exposure control *Adjustment of mA and/or kV according to patient size (this includes techniques or standardized protocols for targeted exams where dose is matched to indication/reason for exam; i.e. extremities or head) *Use of iterative reconstruction technique DLP: 613 mGY*cm FINDINGS: There is no acute ischemic change. There is no intracranial hemorrhage. There is no mass-effect or midline shift. Basal cisterns and ventricles are within normal limits for age/cerebral volume. Orbits are symmetrical and unremarkable. Paranasal sinuses and mastoid air cells are pneumatized. There are no bony abnormalities. CT/CT head/brain wo IV con IMPRESSION: No acute intracranial abnormality. Electronically signed by: Jesu Nguyen MD 03/06/2025 01:32 PM EDT RP Laboratory Tests 04/24/25 12:03 WBC 4.1 L RBC 3.96 L D Hgb 12.6 D Hct 38.4 D MCV 97.0 MCH 31.8 MCHC 32.8 RDW 11.7 Plt Count 235 MPV 8.8 L Sodium 139 Potassium 4.1 D Chloride 108 Carbon Dioxide 26 Anion Gap 9 L BUN 12 Creatinine 0.58 Estim Creat Clear Calc 76.8 Estimated GFR > 60 Random Glucose 83 Uric Acid 2.7 Calcium 8.5 Total Bilirubin 0.2 AST 31 ALT 24 Alkaline Phosphatase 155 H Laboratory Tests 03/06/25 03/06/25 12:58 17:44 Urine Opiates Screen Not Detected Ur Buprenorphine Scrn Not Detected Ur Oxycodone Screen Positive H Urine Methadone Screen Not Detected Urine Fentanyl Screen Not Detected Ur Barbiturates Screen Not Detected Levetiracetam 87.0 H Ur Phencyclidine Scrn Not Detected Ur Amphetamines Screen Not Detected U Benzodiazepines Scrn Not Detected Urine Cocaine Screen Not Detected U Marijuana (THC) Screen Not Detected 02/15/22 MSLT showed no evidence of Narcolepsy or EDS. (It was noted that patient disagrees with test) 03/17/21 24 hr EEG WNL 10/15 EEG diffuse theta 7.5 Hz no sz. Assessment & Plan Assessment & Plan (1) Narcolepsy: Code(s): G47.419 - Narcolepsy without cataplexy Category: Medical Qualifiers: Narcolepsy type: primary with cataplexy Qualified Code(s): G47.411 - Narcolepsy with cataplexy Plan: 70-year-old woman, unreliable historian, with multiple reported neurological conditions, including narcolepsy and seizure, returns to office after about 29 months requesting refill and increased dose of controlled medication. [facility]Pat reviewed which noted 14 different prescribers and 6 different pharmacies within the last 12 months. According to Ad[facility], Adderall ER 30mg #30 for 30 days was last filled 05/12/2025. Methylphenidate 20mg #90 for 30 days. She said she threw out Adderall and did not have medication. She was informed both Ritalin and Adderall are controlled medications - medications would not be refilled at this time as it was our first encounter and further work up is needed After she was informed medication would not be refilled today, she reported weakness in her legs and feeling that falls would increase being without medication. She advised to be seen in ER and was offered to be transported by wheelchair from office by staff to ER for evaluation which she declined. It does not appear narcolepsy diagnosis was ever confirmed (no evidence of narcolepsy on MLST in 2021) and the symptoms/details she offers are vague. Her behavior about getting medication and response thereafter, along with having multiple prescribers for Ritalin and Adderall and use of multiple pharmacies, along with negative amephatamine utox in 02/2025 also raises some caution for prescribing medication at this time (additionally, refill is not due as Adderall was last filled on 05/12/2025, and she should not be on both Adderall ER and Ritalin as these are similar medications). I have asked our MA to contact pharmacy for updated med list and to confirm when Ritalin and Adderall were last filled. MSLT sleep study ordered. Amephatime Utox ordered. (2) Seizure disorder: Code(s): G40.909 - Epilepsy, unspecified, not intractable, without status epilepticus Category: Medical Plan: Levetiracetam level ordered. EEG ordered. (3) Migraine: Code(s): G43.909 - Migraine, unspecified, not intractable, without status migrainosus Category: Medical Qualifiers: Intractability: not intractable Migraine type: unspecified Status migrainosus presence: without status migrainosus Qualified Code(s): G43.909 - Migraine, unspecified, not intractable, without status migrainosus Plan Reviewed testing ordered. Follow up after testing. Orders: Orders Levetiracetam Keppra Today G40.909 - Epilepsy, unspecified, not intractable, without status epilepticus EEG Routine Today G40.909 - Epilepsy, unspecified, not intractable, without status epilepticus, G47.411 - Narcolepsy with cataplexy MR head/brain wo con Today G40.909 - Epilepsy, unspecified, not intractable, without status epilepticus, G47.411 - Narcolepsy with cataplexy RT sleep testing - MSLT Today G47.411 - Narcolepsy with cataplexy Amphetamine Screen Urine Today F15.90 - Other stimulant use, unspecified, uncomplicated, G47.411 - Narcolepsy with cataplexy Medications: Changed From levetiracetam 750 mg PO BID To levetiracetam 750 mg PO BID 180 tabs 0RF 90 days Coding Level of Care Code Est Pt Level 5 (77340) Diagnoses Primary narcolepsy with cataplexy G47.411 Narcolepsy type: primary with cataplexy Seizure disorder G40.909 Migraine without status migrainosus, not intractable, unspecified migraine type G43.909 Intractability: not intractable Migraine type: unspecified Status migrainosus presence: without status migrainosus
--- OUTSIDE RECORDS SUMMARY | 2025-05-21 09:02 | XMS_ITS | Clinical Summary ---
Author Organization [facility] Address [address] [address] Phone Care Team Providers Care Supervisor Beet End Name Role Phone Je Jim MD Primary Care Provider [phone] Social History Tobacco Use Types Packs/Day Years [...] file Insurance MEDICARE PART A & B [facility] MEDICARE REPLACEMENT [facility] MEDICARE PART A & B [employer] MEDICARE REPLACEMENT [facility] MEDICARE PART A & B [facility]PLACEMENT [facility] PART [facility] B [employer] [facility] Care Teams Supervisor Beet End Relationship Specialty Start Date End Date Je Jim MD [address] [place] [address] [facility] [address] [place] [address] PCP - General Internal Medicine 12/30/24 Additional Source Comments The information contained in this document represents components of the legal health record. It is not the complete legal health record.[facility]
== END 2025-05-21 09:47 | disposition home or self-care (01) ==
LOC: HO.HSM 08:37
PROVIDERS: Visit Provider Registered Nurse
DX: G47.411 Narcolepsy with cataplexy (principal); G40.909 Epilepsy, unspecified, not intractable, without status epilepticus; G43.909 Migraine, unspecified, not intractable, without status migrainosus
CPT/HCPCS: 99215

== ENCOUNTER → 2025-05-21 08:37 | Outpatient (BNVA) | payer MEDICARE, SELFPAY | PROVIDERS: Visit Provider Registered Nurse | DX: G47.411 Narcolepsy with cataplexy (principal); G40.909 Epilepsy, unspecified, not intractable, without status epilepticus; G43.909 Migraine, unspecified, not intractable, without status migrainosus; Z79.899 Other long term (current) drug therapy | CPT/HCPCS: 99212 ==